=== PATIENT | male | born 1940 | race Caucasian/White ===

== ENCOUNTER → 2016-12-08 | Outpatient (CLI) | payer MEDICARE, OTHER ==
[~2016-12-08] VITALS: Ht 180.3 cm; Wt 81.6 kg
[~2016-12-08] MED LIST: ASPI1TAB24 PO; ATOR40TA PO; CITA20TA4 PO; GLYCOPYRROLATE INJ 0.2 MG/ML 2 ML VIAL As Ordered ONE; LIDOCAINE 2% INJ 100 MG/5 ML SDV (FOR ANES.) As Ordered ONE; MELO15TA4 PO; MULT1TAB10 PO; NS 1,000 ML IV SCH; PANT40TA2 PO; PROPOFOL 500 MG/50 ML VIAL As Ordered ONE; RAMI5CA PO; SPIR25TA2 PO; SYMB16INH INH; TIOT18INH INH; VITA100T20 PO; ePHEDrine SULFATE 25 MG/5 ML(5MG/ML) SYRINGE As Ordered ONE
--- NOTE | 2016-12-08 11:30 | ROOR ---
Patient Name: Levy Fonseca Procedure Date: 12/08/2016 11:12 AM Date of : 1940 Age: 76 Room: [facility] Gender: Male Note Status: Finalized Procedure: Upper GI endoscopy + Biopsies Indications: Dysphagia, Heartburn Providers: Fareed Oneil MD Referring MD: Darrin De Luna NP Requesting Provider: Medicines: Monitored Anesthesia Care Complications: No immediate complications. Procedure: Pre-Anesthesia Assessment: - The heart rate, respiratory rate, oxygen saturations, blood pressure, adequacy of pulmonary ventilation, and response to care were monitored throughout the procedure. The Endoscope was introduced through the mouth, and advanced to the second part of duodenum. The upper GI endoscopy was accomplished without difficulty. The patient tolerated the procedure well. Findings: The Z-line was irregular and was found 35 cm from the incisors. Multiple biopsies were obtained with cold forceps for evaluation to rule out Ahn's Esophagus randomly at the gastroesophageal junction. A large hiatal hernia was present. No other significant abnormalities were identified in a careful examination of the stomach. The exam of the duodenum was otherwise normal. Impression: - Z-line irregular, 35 cm from the incisors. - Large hiatal hernia. - Multiple biopsies were obtained at the gastroesophageal junction. - The examination was otherwise normal. Recommendation: - Patient has a contact number available for emergencies. The signs and symptoms of potential delayed complications were discussed with the patient. Return to normal activities tomorrow. Written discharge instructions were provided to the patient. - Discharge patient to home. - Continue present medications. - Follow an antireflux regimen. - Await pathology results. - Check Portal Online for Path Results.([email or web address]) - Telephone GI clinic for pathology results in 1 week. - Return to referring physician. - The findings and recommendations were discussed with the patient's family. Fareed Oneil MD Fareed Oneil MD 12/08/2016 11:30:24 AM This report has been signed electronically. Number of Addenda: 0 Note Initiated On: 12/08/2016 11:12 AM Estimated Blood Loss: Estimated blood loss: none.
--- NOTE | 2016-12-08 11:51 | ROOR ---
Patient Name: Levy Fonseca Procedure Date: 12/08/2016 11:12 AM Date of : 1940 Age: 76 Room: [facility] Gender: Male Note Status: Finalized Procedure: Colonoscopy to Cecum + Cold Snare Polypectomy Indications: Screening for colorectal malignant neoplasm Providers: Fareed Oneil MD Referring MD: Darrin De Luna NP Requesting Provider: Medicines: Monitored Anesthesia Care Complications: No immediate complications. Procedure: Pre-Anesthesia Assessment: - The heart rate, respiratory rate, oxygen saturations, blood pressure, adequacy of pulmonary ventilation, and response to care were monitored throughout the procedure. The Colonoscope was introduced through the anus and advanced to the cecum, identified by appendiceal orifice and ileocecal valve. The colonoscopy was performed without difficulty. The patient tolerated the procedure well. The quality of the bowel preparation was excellent. Findings: The perianal and digital rectal examinations were normal. Non-bleeding internal hemorrhoids were found during retroflexion. The hemorrhoids were small and Grade I (internal hemorrhoids that do not prolapse). Scattered small-mouthed diverticula were found in the recto-sigmoid colon, sigmoid colon and descending colon. Multiple sessile polyps were found at 10 cm proximal to the anus. The polyps were small in size. These polyps were removed with a cold snare. Resection and retrieval were complete. A small polyp was found at 45 cm proximal to the anus. The polyp was sessile. The polyp was removed with a cold snare. Resection and retrieval were complete. The exam was otherwise without abnormality on direct and retroflexion views. Impression: - Non-bleeding internal hemorrhoids. - Diverticulosis in the recto-sigmoid colon, in the sigmoid colon and in the descending colon. - Multiple small polyps at 10 cm proximal to the anus, removed with a cold snare. Resected and retrieved. - One small polyp at 45 cm proximal to the anus, removed with a cold snare. Resected and retrieved. - The examination was otherwise normal on direct and retroflexion views. - The exam was otherwise normal to the cecum. Recommendation: - Patient has a contact number available for emergencies. The signs and symptoms of potential delayed complications were discussed with the patient. Return to normal activities tomorrow. Written discharge instructions were provided to the patient. - High fiber diet. - Discharge patient to home. - Continue present medications. - Await pathology results. - Telephone GI clinic for pathology results in 1 week. - Check Portal Online for Path Results.([email or web address]) - Repeat colonoscopy for surveillance based on pathology results. - Return to referring physician. - The findings and recommendations were discussed with the patient's family. Fareed Oneil MD Fareed Oneil MD 12/08/2016 11:51:25 AM This report has been signed electronically. Number of Addenda: 0 Note Initiated On: 12/08/2016 11:12 AM Estimated Blood Loss: Estimated blood loss: none.
[2016-12-08 12:10] VITALS: BP 124/77
== END | disposition home or self-care (01) ==
LOC: M OPP 09:44
PROVIDERS: ATTEND Internal Medicine Gastroenterology
DX: Z12.11 Encounter for screening for malignant neoplasm of colon (principal); K64.0 First degree hemorrhoids; K57.30 Diverticulosis of large intestine without perforation or abscess without bleeding; K62.0 Anal polyp; K21.9 Gastro-esophageal reflux disease without esophagitis; K22.8 Other specified diseases of esophagus; K44.9 Diaphragmatic hernia without obstruction or gangrene; K22.70 Barrett's esophagus without dysplasia; I10 Essential (primary) hypertension; M19.90 Unspecified osteoarthritis, unspecified site; F41.9 Anxiety disorder, unspecified; J44.9 Chronic obstructive pulmonary disease, unspecified; Z79.899 Other long term (current) drug therapy; Z79.82 Long term (current) use of aspirin; Z88.1 Allergy status to other antibiotic agents; Z88.2 Allergy status to sulfonamides; Z88.8 Allergy status to other drugs, medicaments and biological substances; Z87.891 Personal history of nicotine dependence

== ENCOUNTER → 2017-07-16 | Outpatient (REF) | payer MEDICARE, OTHER ==
[~2017-07-16] MED LIST changes: +ASPI-161 PO; -ASPI1TAB24 PO; -ATOR40TA PO; +ATOR40TA75 PO; -GLYCOPYRROLATE INJ 0.2 MG/ML 2 ML VIAL As Ordered ONE; -LIDOCAINE 2% INJ 100 MG/5 ML SDV (FOR ANES.) As Ordered ONE; -NS 1,000 ML IV SCH; -PROPOFOL 500 MG/50 ML VIAL As Ordered ONE; -ePHEDrine SULFATE 25 MG/5 ML(5MG/ML) SYRINGE As Ordered ONE
== END ==
LOC: M LAB REF 13:28
PROVIDERS: ATTEND Physician Assistant
DX: J44.1 Chronic obstructive pulmonary disease with (acute) exacerbation (principal)

== ENCOUNTER → 2017-09-10 | Outpatient (CLI) | payer MEDICARE, OTHER ==
[~2017-09-10] MED LIST changes: -ASPI-161 PO; -ATOR40TA75 PO; -CITA20TA4 PO; +ISOVUE-370 76% 100ML VIAL (Q9967) As Ordered; -MELO15TA4 PO; -MULT1TAB10 PO; -PANT40TA2 PO; -RAMI5CA PO; -SPIR25TA2 PO; -SYMB16INH INH; -TIOT18INH INH; -VITA100T20 PO
== END ==
LOC: M RAD 15:18
DX: R06.00 Dyspnea, unspecified (principal); J98.11 Atelectasis; K44.9 Diaphragmatic hernia without obstruction or gangrene
CPT/HCPCS: Q9967

== ENCOUNTER → 2017-10-22 | Outpatient (REF) | payer MEDICARE, OTHER ==
[2017-10-22 17:20] LABS: INFLUENZA A AMPLIFICATION NEGATIVE (NEGATIVE); INFLUENZA B AMPLIFICATION NEGATIVE (NEGATIVE)
== END ==
LOC: M LAB REF 16:22
DX: J11.1 Influenza due to unidentified influenza virus with other respiratory manifestations (principal)
CPT/HCPCS: 87502

== ENCOUNTER → 2017-12-10 | Outpatient (CLI) | payer MEDICARE, OTHER ==
[2017-12-10 16:44] LABS: BASO % 0.4 % (0.0-1.0); EOS # 0.1 10^3/uL (0.0-0.50); HEMOGLOBIN 11.2 g/dl (13.5-17.5); IMMATURE GRANULOCYTE % 0.3 % (0-3.0); LYMPH # 0.9 10^3/uL (1.5-4.5); LYMPH % 12.9 % (24.0-44.0); MEAN CORPUSCULAR HEMOGLOBIN 28.1 pg (27.0-33.0); MEAN CORPUSCULAR VOLUME 87.7 fl (80.0-96.0); MONO # 0.6 10^3/uL (0.0-0.8); NEUTROPHILS # 5.3 10^3/uL (1.8-7.7); NEUTROPHILS % 76.4 % (36.0-66.0); PLATELET COUNT, AUTOMATED 238 10^3/uL (150-450); RED BLOOD COUNT 3.99 10^6/uL (4.30-6.10); RED CELL DISTRIBUTION WIDTH 14.9 % (11.5-14.5)
[2017-12-10 17:19] LABS: ALBUMIN 3.8 GM/DL (3.2-5.2); ALBUMIN/GLOBULIN RATIO 1.36 (1.00-1.93); ALKALINE PHOSPHATASE 78 U/L (45-117); ALT/SGPT 40 U/L (12-78); ANION GAP 6 MEQ/L (8-16); AST/SGOT 28 U/L (7-37); BILIRUBIN,TOTAL 0.5 MG/DL (0.2-1.0); BLOOD UREA NITROGEN 19 MG/DL (7-18); CALCIUM LEVEL 8.8 MG/DL (8.8-10.2); CARBON DIOXIDE LEVEL 29 MEQ/L (21-32); CHLORIDE LEVEL 110 MEQ/L (98-107); CREATININE FOR GFR 0.92 MG/DL (0.70-1.30); GLOMERULAR FILTRATION RATE > 60.0 (>42); GLUCOSE, FASTING 96 MG/DL (70-100); POTASSIUM SERUM 4.7 MEQ/L (3.5-5.1); SODIUM LEVEL 145 MEQ/L (136-145); TOTAL PROTEIN 6.6 GM/DL (6.4-8.2)
[2017-12-10 17:23] LABS: APPEARANCE, URINE CLEAR (CLEAR); BACTERIA, URINE AUTO NEGATIVE (NEGATIVE); BILIRUBIN, URINE AUTO NEGATIVE (NEGATIVE); BLOOD, URINE BLOOD NEGATIVE (NEGATIVE); COLOR, URINE YELLOW (YELLOW); GLUCOSE, URINE (UA) AUTO NEGATIVE (NEGATIVE); KETONE, URINE AUTO NEGATIVE (NEGATIVE); LEUKOCYTE ESTERASE, URINE AUTO NEGATIVE (NEGATIVE); MUCUS, URINE SMALL (NEGATIVE); NITRITE, URINE AUTO NEGATIVE (NEGATIVE); PROTEIN, URINE AUTO NEGATIVE (NEGATIVE); RBC, URINE AUTO 1 /HPF (0-3); SQUAMOUS EPITHELIAL CELL UR AU 0 /HPF (0-6); UROBILINOGEN, URINE AUTO 0.2 mg/dL (0.0-2.0); WBC, URINE AUTO 0 /HPF (0-3)
[2017-12-10 17:30] LABS: INR 0.96; PROTHROMBIN TIME 12.9 SECONDS (12.4-14.5)
[2017-12-10 17:31] LABS: PARTIAL THROMBOPLASTIN TIME 30.7 SECONDS (26.8-37.9)
[2017-12-10 19:17] LABS: ESTIMATED AVERAGE GLUCOSE 128 MG/DL (60-110); HEMOGLOBIN A1c 6.1 %
== END ==
LOC: M WUC 11:08
DX: M47.12 Other spondylosis with myelopathy, cervical region (principal); M47.22 Other spondylosis with radiculopathy, cervical region; Z79.899 Other long term (current) drug therapy
CPT/HCPCS: 80053

== ENCOUNTER → 2018-07-21 | Outpatient (CLI) | payer MEDICARE, OTHER | LOC: M RAD 15:04 | DX: K40.90 Unilateral inguinal hernia, without obstruction or gangrene, not specified as recurrent (principal); R93.811 Abnormal radiologic findings on diagnostic imaging of right testicle; N50.3 Cyst of epididymis; R10.30 Lower abdominal pain, unspecified | CPT/HCPCS: 76870 ==

== ENCOUNTER 2019-04-11 11:04 | Day surgery (SDC) | payer MEDICARE, OTHER ==
[~2019-04-11] VITALS: Ht 180.3 cm; Wt 81.6 kg
[~2019-04-11 11:04] MED LIST changes: +ASPI-161 PO; +ATOR40TA75 PO; +CITA20TA6 PO; -ISOVUE-370 76% 100ML VIAL (Q9967) As Ordered; +LIDOCAINE 2% INJ 100 MG/5 ML SDV (FOR ANES.) As Ordered ONE; +MELO15TA28 PO; +MULT1TAB10 PO; +MULTCAP PO; +NS 1,000 ML IV ONE; +PANT40TA3 PO; +PROV108A INH; +RAMI1CAP24 PO; +ROPI0.5T PO; +SPIR-10 PO; +SYMB16INH INH; +TIOT18INH INH; +VITA100T51 PO; +propofoL 200 MG/20 ML VIAL As Ordered ONE
--- NOTE | 2019-04-11 13:16 | ROOR ---
Patient Name: Levy Fonseca Procedure Date: 04/11/2019 12:54 PM Date of : 1940 Age: 79 Room: [facility] Gender: Male Note Status: Finalized Procedure: Upper Endoscopy + Biopsies Indications: Heartburn, Exclusion of Ahn's esophagus Providers: Fareed Oneil MD Referring MD: Diaz Mendez Md Requesting Provider: Medicines: Monitored Anesthesia Care Complications: No immediate complications. Procedure: Pre-Anesthesia Assessment: - The heart rate, respiratory rate, oxygen saturations, blood pressure, adequacy of pulmonary ventilation, and response to care were monitored throughout the procedure. The Endoscope was introduced through the mouth, and advanced to the second part of duodenum. The upper GI endoscopy was accomplished without difficulty. The patient tolerated the procedure well. Findings: The Z-line was irregular and was found 35 cm from the incisors. Multiple biopsies were obtained with cold forceps for evaluation to rule out Ahn's Esophagus randomly at the gastroesophageal junction. A large hiatal hernia was present. No other significant abnormalities were identified in a careful examination of the stomach. The exam of the duodenum was otherwise normal. Impression: - Z-line irregular, 35 cm from the incisors. - Large hiatal hernia. - Multiple biopsies were obtained at the gastroesophageal junction. - The examination was otherwise normal. Recommendation: - Patient has a contact number available for emergencies. The signs and symptoms of potential delayed complications were discussed with the patient. Return to normal activities tomorrow. Written discharge instructions were provided to the patient. - High fiber diet. - Discharge patient to home. - Follow an antireflux regimen. - Continue present medications. - Await pathology results. - Telephone GI clinic for pathology results in 1 week. - Return to referring physician. - The findings and recommendations were discussed with the patient's family. Fareed Oneil MD Fareed Oneil MD 04/11/2019 1:16:29 PM Electronically signed by Fareed Oneil MD Number of Addenda: 0 Note Initiated On: 04/11/2019 12:54 PM Estimated Blood Loss: Estimated blood loss: none.
[2019-04-11 13:47] VITALS: BP 162/70
== END 2019-04-11 13:47 | disposition home or self-care (01) ==
LOC: M OPP 11:04
PROVIDERS: ATTEND Internal Medicine Gastroenterology
DX: R12 Heartburn (principal); D13.0 Benign neoplasm of esophagus; K22.8 Other specified diseases of esophagus; K44.9 Diaphragmatic hernia without obstruction or gangrene; I10 Essential (primary) hypertension; E78.00 Pure hypercholesterolemia, unspecified; F41.9 Anxiety disorder, unspecified; J44.9 Chronic obstructive pulmonary disease, unspecified; Z88.2 Allergy status to sulfonamides; Z88.8 Allergy status to other drugs, medicaments and biological substances; Z79.82 Long term (current) use of aspirin; Z87.891 Personal history of nicotine dependence

== ENCOUNTER → 2019-06-10 | Outpatient (CLI) | payer MEDICARE, OTHER ==
[~2019-06-10] MED LIST changes: -LIDOCAINE 2% INJ 100 MG/5 ML SDV (FOR ANES.) As Ordered ONE; -NS 1,000 ML IV ONE; -propofoL 200 MG/20 ML VIAL As Ordered ONE
[2019-06-10 13:09] LABS: HEMATOCRIT 38.9 % (42.0-52.0); HEMOGLOBIN 12.4 g/dl (13.5-17.5); MEAN CORPUSCULAR HEMOGLOBIN 29.8 pg (27.0-33.0); MEAN CORPUSCULAR HGB CONC 31.9 g/dl (32.0-36.5); MEAN CORPUSCULAR VOLUME 93.5 fl (80.0-96.0); PLATELET COUNT, AUTOMATED 240 10^3/uL (150-450); RED BLOOD COUNT 4.16 10^6/uL (4.30-6.10); WHITE BLOOD COUNT 4.7 10^3/uL (4.0-10.0)
[2019-06-10 13:21] LABS: BLOOD UREA NITROGEN 19 MG/DL (7-18); CARBON DIOXIDE LEVEL 29 MEQ/L (21-32); CHLORIDE LEVEL 106 MEQ/L (98-107); CHOLESTEROL LEVEL 158 MG/DL (<200); CHOLESTEROL RISK RATIO 2.468 (<5); CREATININE FOR GFR 0.88 MG/DL (0.70-1.30); GLOMERULAR FILTRATION RATE > 60.0 (>42); GLUCOSE, FASTING 99 MG/DL (70-100); HDL CHOLESTEROL 64 MG/DL (>40); LDL CHOLESTEROL 66 MG/DL (<100); NON-HDL-C 94 MG/DL; POTASSIUM SERUM 5.1 MEQ/L (3.5-5.1); SODIUM LEVEL 138 MEQ/L (136-145); TRIGLYCERIDES LEVEL 139 MG/DL (<150)
== END ==
LOC: M WUC 09:56
PROVIDERS: ATTEND Physician Assistant
DX: I25.10 Atherosclerotic heart disease of native coronary artery without angina pectoris (principal)

== ENCOUNTER → 2019-09-27 | Outpatient (CLI) | payer MEDICARE, OTHER ==
[~2019-09-27] MED LIST changes: -ROPI0.5T PO; +ROPI0.5T3 PO
--- NOTE | 2019-09-27 11:01 | REP ---
Clinical: Lung screening. History smoking. Comparison: Chest CT dated 09/10/2017 and 11/13/2015 Technique: Axial low-dose noncontrast images from the thoracic inlet to the upper abdomen using lung screening technique. Findings: The lung wheeler are well-aerated. Small stable scarring inseparable from the right major fissure (image 60) unchanged compared to 2016. Large hiatal hernia extends to the left lower lung zone with adjacent chronic scarring. No consolidation, significant nodule or mass lesion is appreciated. No pleural effusion/reaction or pneumothorax. Tracheobronchial tree is patent. Mediastinum demonstrates mild atherosclerotic changes of the coronary arteries without cardiomegaly. Impression: Lung-RADS category II. No nodule or suspicious abnormality. Management recommendations include annual surveillance. Electronically Signed by Gary Eastman MD 09/27/2019 10:52 A
== END ==
LOC: M RAD 09:23
PROVIDERS: ATTEND Physician Assistant Medical
DX: Z12.2 Encounter for screening for malignant neoplasm of respiratory organs (principal); Z87.891 Personal history of nicotine dependence

== ENCOUNTER → 2020-02-07 | Outpatient (CLI) | payer MEDICARE, OTHER ==
--- NOTE | 2020-02-07 11:31 | REP ---
Chest x-ray: Two views. History: COPD. Comparison chest x-ray: June 08, 2015. Findings: There is a large hiatal hernia behind the heart. The patient is status post cervical discectomy and fusion plating. There are mild degenerative disc changes in the thoracic spine. The thoracic aorta is tortuous. Heart is not enlarged. The lungs are well inflated and free of infiltrate. Pleural angles are sharp. Pulmonary vasculature is not increased. Impression: Large hiatal hernia. Otherwise no active cardiopulmonary disease. Electronically Signed by Allen Higgins MD 02/07/2020 11:23 A
== END ==
LOC: M LAB 09:40
PROVIDERS: ATTEND Internal Medicine Pulmonary Disease
DX: K44.9 Diaphragmatic hernia without obstruction or gangrene (principal); J44.9 Chronic obstructive pulmonary disease, unspecified

== ENCOUNTER → 2020-02-08 | Outpatient (CLI) | payer MEDICARE, OTHER ==
[2020-02-08 13:43] LABS: BLOOD UREA NITROGEN 28 MG/DL (7-18); CALCIUM LEVEL 8.7 MG/DL (8.8-10.2); CARBON DIOXIDE LEVEL 26 MEQ/L (21-32); CHLORIDE LEVEL 109 MEQ/L (98-107); CHOLESTEROL LEVEL 157 MG/DL (<200); CHOLESTEROL RISK RATIO 2.573 (<5); GLOMERULAR FILTRATION RATE > 60.0 (>42); GLUCOSE, FASTING 98 MG/DL (70-100); HDL CHOLESTEROL 61 MG/DL (>40); LDL CHOLESTEROL 75 MG/DL (<100); NON-HDL-C 96 MG/DL; POTASSIUM SERUM 4.3 MEQ/L (3.5-5.1); SODIUM LEVEL 140 MEQ/L (136-145); TRIGLYCERIDES LEVEL 106 MG/DL (<150)
== END ==
LOC: M WUC 08:53
PROVIDERS: ATTEND Physician Assistant
DX: I25.10 Atherosclerotic heart disease of native coronary artery without angina pectoris (principal)

== ENCOUNTER → 2020-06-14 | Outpatient (CLI) | payer MEDICARE, OTHER ==
[~2020-06-14] MED LIST changes: +PANT40TA29 PO; -PANT40TA3 PO
--- NOTE | 2020-06-14 12:18 | REP ---
INDICATION: WHEEZING. COMPARISON: 02/24/2020 and 09/27/2019 and 09/10/2017. TECHNIQUE: CT chest performed without the use of intravenous contrast. Sagittal and coronal reconstruction images are performed. FINDINGS: Lungs: There is scattered linear fibrotic scarring which appears stable. There is a 4 mm nodular density anteriorly in the right lower lobe which is stable and benign. It is unchanged since the 2018 exam. It is seen on image 57. There is stable somewhat nodular scarring in the right middle lobe. There is stable fibro atelectatic change in the left lower lobe. There is no acute infiltrate or pulmonary edema. Mediastinum: No gross adenopathy. Lindsey: No gross adenopathy. Axilla: No gross adenopathy. Pleura: No effusion. Heart: Not enlarged. Thoracic aorta: No aneurysm. There are atherosclerotic calcifications. Upper abdominal structures: There is a large hiatal hernia. There is a 4 mm calcification in the collecting system of the upper pole the left kidney. Visualized osseous structures: There are degenerative changes of the spine with stable compression deformity of L1. IMPRESSION: Stable chronic findings as discussed in detail above. No acute changes compared to prior studies. <Electronically signed by Sunil Landers > 06/14/20 1085
== END ==
LOC: M RAD 08:18
PROVIDERS: ATTEND Internal Medicine Pulmonary Disease
DX: R06.2 Wheezing (principal)

== ENCOUNTER → 2020-06-21 | Outpatient (CLI) | payer MEDICARE, OTHER | LOC: M LABSMTC 13:11 | PROVIDERS: ATTEND Anesthesiology | DX: Z01.812 Encounter for preprocedural laboratory examination (principal); Z20.828 Contact with and (suspected) exposure to other viral communicable diseases | CPT/HCPCS: C9803; U0003 ==

== ENCOUNTER 2020-06-26 09:06 | Day surgery (SDC) | payer MEDICARE, OTHER ==
[~2020-06-26] VITALS: Ht 180.3 cm; Wt 79.4 kg
[~2020-06-26 09:06] MED LIST changes: +LIDOCAINE 1% MDV 20ML VIAL SQ PRN; +LR 1,000 ML IV ONE; +ceFAZolin SOD 2 GM in IV 1 EA IV ONE
[2020-06-26] MEDS ORDERED: THROMBIN SOLN 20,000 UNITS KIT As Ordered ONE (10:17)
[2020-06-26] MEDS ORDERED: LIDOCAINE 4% TOPICAL SOLN 50 ML BTL As Ordered ONE (10:18)
[2020-06-26] MEDS ORDERED: EPINEPHrine 1MG/10ML SYRINGE 1.5IN As Ordered ONE (10:18)
[2020-06-26] MEDS ORDERED: CETACAINE SPRAY 5GM As Ordered ONE (10:18)
[2020-06-26] MEDS ORDERED: LIDOCAINE 1% SDV 30ML VIAL As Ordered ONE (10:18)
[2020-06-26] MEDS ORDERED: LIDOCAINE VISCOUS 2% SOLN 15ML UDC As Ordered ONE (10:18)
[2020-06-26] MEDS ORDERED: SUGAMMADEX SODIUM 500 MG/5 ML VIAL (BRIDION) As Ordered ONE (11:00)
[2020-06-26] MEDS ORDERED: dexameTHASONE 4 MG/ML 1ML VIAL (J1100 PER 1MG) As Ordered ONE (11:00)
[2020-06-26] MEDS ORDERED: ONDANSETRON 4MG/2ML VIAL As Ordered ONE (11:00)
[2020-06-26] MEDS ORDERED: ROCURONIUM BROMIDE 50 MG/5 ML VIAL As Ordered ONE (11:00)
[2020-06-26] MEDS ORDERED: LIDOCAINE 2% 100MG/5ML SDV (FOR ANES.) As Ordered ONE (11:00)
[2020-06-26] MEDS ORDERED: propofoL 200 MG/20 ML VIAL As Ordered ONE (11:00)
[2020-06-26] MEDS ORDERED: fentaNYL 100 MCG/2 ML INJECTION (J3010) As Ordered ONE (11:00)
[2020-06-26] MEDS ORDERED: fentaNYL 100 MCG/2 ML INJECTION (J3010) IV PRN (11:30)
[2020-06-26] MEDS ORDERED: PERCOCET 5MG/325MG TAB PO PRN (11:30)
[2020-06-26] MEDS ORDERED: METOCLOPRAMIDE INJ 10MG/2ML VIAL (J2765 PER 1) IV PRN (11:30)
[2020-06-26] MEDS ORDERED: ONDANSETRON 4MG/2ML VIAL IV PRN (11:30)
[2020-06-26] MEDS ORDERED: LR 1,000 ML IV SCH (11:30)
--- NOTE | 2020-06-26 11:47 | REP ---
INDICATION: POST OP IN PACU NOW. COMPARISON: Comparison chest CT study June 14, 2020. Comparison chest radiograph February 07, 2020.. TECHNIQUE: Semi-erect AP portable chest x-ray. FINDINGS: There is cephalization of pulmonary vasculature. A large hiatal hernia is again noted behind the heart. Heart is mildly prominent in size. Pleural angles are sharp. There is no evidence of pneumothorax or hydrothorax. There is soft tissue fullness in the left hilar region. IMPRESSION: No evidence of pneumothorax or hydrothorax. Large hiatal hernia. Question left perihilar fullness. <Electronically signed by Noel Higgins > 06/26/20 [id number]
[2020-06-26 12:10] VITALS: BP 140/80
--- NOTE | 2020-06-26 18:06 | ECGEPIP ---
[facility] Test Date: 2020-06-26 Pat Name: KIANA MCKEON Department: Room: - Gender: Male Security Manager: ELSA : 1940 Requested By: Diaz Rose Order Number: [id number] Reading MD: Freddy Frederick Measurements Intervals [place] Rate: 58 P: 11 [place]: 163 QRS: 0 QRSD: 103 T: 23 QT: 440 QTc: 435 Interpretive Statements Sinus bradycardia Low QRS voltage in the limb leads Nonspecific T-wave abnormalities No significant change since prior tracing of 06/08/2015 Electronically Signed on 06-26-2020 18:06:15 EST by Freddy Frederick
--- NOTE | 2020-06-27 07:07 | RO ---
DATE OF OPERATION: 06/26/2020 PREOPERATIVE DIAGNOSIS: Persistent right lower lobe wheeze. POST-PROCEDURE DIAGNOSIS: Persistent right lower lobe wheeze. FINDINGS: Smokers airway with a fishmouth, right middle lobe medial segment. PROCEDURE: Bronchoscopy with inspection, no biopsies performed. SURGEON: Jonathan Roberson DO ANESTHESIA: General. Please refer to their records for review. ESTIMATED BLOOD LOSS: None. DRAINS: None. DRY CURE WORKER: None. SPECIMENS: None obtained. FLUID REPLACED: None. COMPLICATIONS: None. DESCRIPTION OF PROCEDURE: The patient was greeted in the preoperative area. Consent was reviewed with the patient. The reason we were doing this under general anesthesia is in case there was a foreign body as there had been a persistent wheeze in this same location on exam over a number of months. No other wheeze elsewhere in the lung exam. Possibly some minimal changes to the right upper lobe airway. After consent was reviewed with the patient, he was brought back to [facility]. Timeout was performed with two patient identifiers, identifying correct site and correct procedure. He was intubated. The case was handed over to me. A 1T180 bronchoscope was then inserted into the endotracheal tube with cetacaine spray for lubrication. Claire was sharp. Trachea was midline. Right mainstem bronchus was normal. RB-1 through 10 was normal with significant pitting in the right upper lobe and some fishmouth appearance of the medial segment of the right middle lobe. Otherwise, there were no endobronchial lesions. There were minimal amounts of mucus that were suctioned. The left mainstem bronchus was then entered. LB-1 through 10 had similar findings of pitting and banding, more pitting than banding. No endobronchial lesion was seen. In the superior basal segment of the left lower lobe, there was significant mucus. This was cleared. There were no endobronchial lesions. After all airways were examined, I reexamined the right again to ensure no foreign body or polyp/tumor. There was no evidence of endobronchial lesions; therefore, the bronchoscope was removed. The case was handed over back to anesthesia. The patient was extubated. Post-procedure chest x-ray is pending. At this point in time, no observed complications. MTDD
== END 2020-06-26 12:49 | disposition home or self-care (01) ==
LOC: M SDC 09:06
PROVIDERS: ATTEND Internal Medicine Pulmonary Disease
DX: R91.8 Other nonspecific abnormal finding of lung field (principal); J44.9 Chronic obstructive pulmonary disease, unspecified; R06.2 Wheezing; Z87.891 Personal history of nicotine dependence; K21.9 Gastro-esophageal reflux disease without esophagitis; E78.49 Other hyperlipidemia; Z88.2 Allergy status to sulfonamides; Z88.8 Allergy status to other drugs, medicaments and biological substances
CPT/HCPCS: 31622; 71045; 93005; J1100; J2405; J3010

== ENCOUNTER → 2020-07-31 | Outpatient (CLI) | payer MEDICARE, OTHER ==
[~2020-07-31] MED LIST changes: -LIDOCAINE 1% MDV 20ML VIAL SQ PRN; -LR 1,000 ML IV ONE; -ceFAZolin SOD 2 GM in IV 1 EA IV ONE
[2020-07-31 12:05] LABS: PLATELET COUNT, AUTOMATED 229 10^3/uL (150-450)
[2020-07-31 12:22] LABS: INR 0.91; PROTHROMBIN TIME 12.4 SECONDS (12.5-14.3)
[2020-07-31 12:23] LABS: PARTIAL THROMBOPLASTIN TIME 29.6 SECONDS (24.2-38.5)
== END ==
LOC: M WUC 09:59
PROVIDERS: ATTEND Physician Assistant Surgical
DX: Z01.812 Encounter for preprocedural laboratory examination (principal); Z79.899 Other long term (current) drug therapy

== ENCOUNTER → 2020-08-01 | Outpatient (CLI) | payer MEDICARE, OTHER | LOC: M LABSMTC 12:10 | PROVIDERS: ATTEND Physical Medicine & Rehabilitation | DX: Z01.812 Encounter for preprocedural laboratory examination (principal); Z20.828 Contact with and (suspected) exposure to other viral communicable diseases ==

== ENCOUNTER → 2020-10-22 | Outpatient (CLI) | payer MEDICARE, OTHER ==
--- NOTE | 2020-10-22 10:44 | REP ---
INDICATION: NICOTINE DEPEND COMPARISON: 06/14/2020 TECHNIQUE: Axial noncontrast images from the thoracic inlet to the upper abdomen using low-dose lung screening technique (LDCT). FINDINGS: A large paraesophageal gastric hiatal hernia along the left basilar aspect of the mediastinum causing chronic fibroatelectatic changes to the adjacent left lower lobe as well as small scattered perifissural areas of chronic scarring and 3 mm noncalcified right lower lobe nodule remain stable as compared with multiple prior examinations dating through 09/27/2019 and 09/10/2017. No new area of consolidation, suspicious nodule or mass lesion appreciated. Tracheobronchial tree is patent. The mediastinum demonstrates stable atherosclerotic changes to the thoracic aorta and coronary arteries. Surrounding musculoskeletal structures intact and without acute osseous abnormality. IMPRESSION: Lung-RADS category 2 demonstrating stable changes. No new acute suspicious nodule or mass lesion. Management recommendations include annual low-dose CT evaluation. <Electronically signed by Gary Eastman > 10/22/20 1048
== END ==
LOC: M RAD 10:12
PROVIDERS: ATTEND Physician Assistant Medical
DX: Z87.891 Personal history of nicotine dependence (principal)

== ENCOUNTER → 2020-11-15 | Outpatient (REF) | payer MEDICARE, OTHER ==
[2020-11-15 14:04] LABS: BLOOD UREA NITROGEN 29 MG/DL (7-18); CREATININE FOR GFR 0.83 MG/DL (0.70-1.30); GLOMERULAR FILTRATION RATE > 60.0 (>42)
== END ==
LOC: M LAB REF 13:16
PROVIDERS: ATTEND Internal Medicine Pulmonary Disease
DX: R06.00 Dyspnea, unspecified (principal)

== ENCOUNTER → 2020-11-15 | Outpatient (CLI) | payer MEDICARE, OTHER ==
[~2020-11-15] MED LIST changes: +ISOVUE-370 76% 100ML VIAL As Ordered ONE
--- NOTE | 2020-11-15 16:04 | REP ---
INDICATION: DYSPNEA, UNSPECIFIED. COMPARISON: Chest CT with IV contrast dated 09/10/[address] without IV contrast dated 10/22/2020. TECHNIQUE: Chest CT with IV contrast, CT angiography. FINDINGS: There are no emboli in the pulmonary trunk or central pulmonary arteries. There are tiny filling defects in the left lower lobe pulmonary artery compatible with nonocclusive emboli. They are eccentric suggesting they may be chronic. Upon review similar filling defects are identified on the 09/10/2017 study, also small, eccentric and nonocclusive, possibly chronic previously as well., not significantly changed on the current study. No emboli are identified in the lobe or segment pulmonary artery branches otherwise. There is a stable 6 mm lung nodule in the right middle lobe on image 54, unchanged from both prior studies, likely a granuloma. There is a stable 6 mm lung nodule in the right middle lobe on image 67, unchanged from both prior studies, likely a granuloma. There is a stable 3 mm nodule in the superior segment of the right lower lobe on image 45, unchanged from both prior studies. There is a large fixed hiatal hernia measuring up to 13 cm in diameter. There is chronic atelectasis, scarring and parenchymal bulla in the left lower lobe adjacent to the hiatal hernia, unchanged from the prior studies. There are no acute infiltrates or pleural effusions. The thoracic aorta is unremarkable. Cardiac size is normal. No pericardial effusion. The visualized upper abdominal contents are unremarkable except for the large hiatal hernia and a nonobstructive left renal calculus. The calculus is unchanged from 09/10/2017. 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 Upon review I believe these are also present on the 09/10/2017 CT, likely chronic on the prior study as well. They are not significantly changed on the current study. There are no new pulmonary emboli. There are stable lung nodules as described. There is stable parenchymal scarring and there are stable bulla in the left lower lobe adjacent to the large fixed hiatal hernia, unchanged. There is a non obstructing left renal calculus, unchanged. There are no acute infiltrates or pleural effusions. There are no new lung masses or nodules. <Electronically signed by Sunil Chan > 11/15/20 1600
== END ==
LOC: M RAD 15:02
PROVIDERS: ATTEND Internal Medicine Pulmonary Disease
DX: R91.8 Other nonspecific abnormal finding of lung field (principal); N20.0 Calculus of kidney; R06.00 Dyspnea, unspecified
CPT/HCPCS: 71275; 82565; 84520; Q9967

== ENCOUNTER → 2021-01-01 | Outpatient (REF) | payer MEDICARE, OTHER ==
[~2021-01-01] MED LIST changes: -ISOVUE-370 76% 100ML VIAL As Ordered ONE
[2021-01-01 18:20] LABS: HEMATOCRIT 35.8 % (42.0-52.0); HEMOGLOBIN 11.4 g/dl (13.5-17.5); MEAN CORPUSCULAR HEMOGLOBIN 29.6 pg (27.0-33.0); MEAN CORPUSCULAR HGB CONC 31.8 g/dl (32.0-36.5); PLATELET COUNT, AUTOMATED 284 10^3/uL (150-450); RED BLOOD COUNT 3.85 10^6/uL (4.30-6.10); WHITE BLOOD COUNT 4.9 10^3/uL (4.0-10.0)
[2021-01-01 18:47] LABS: BLOOD UREA NITROGEN 19 MG/DL (7-18); CREATININE FOR GFR 0.92 MG/DL (0.70-1.30); GLOMERULAR FILTRATION RATE > 60.0 (>42)
== END ==
LOC: M LAB REF 17:11
PROVIDERS: ATTEND Internal Medicine Pulmonary Disease
DX: I26.99 Other pulmonary embolism without acute cor pulmonale (principal)

== ENCOUNTER → 2021-01-30 | Outpatient (CLI) | payer MEDICARE, OTHER | LOC: M WUC 10:20 | PROVIDERS: ATTEND Internal Medicine Pulmonary Disease | DX: I27.82 Chronic pulmonary embolism (principal); D64.9 Anemia, unspecified ==

== ENCOUNTER → 2021-02-28 | Outpatient (REF) | payer MEDICARE, OTHER | LOC: M WUC 11:30 | PROVIDERS: ATTEND Internal Medicine Pulmonary Disease | DX: I27.82 Chronic pulmonary embolism (principal); J44.9 Chronic obstructive pulmonary disease, unspecified; R06.00 Dyspnea, unspecified ==

== ENCOUNTER → 2021-03-15 | Outpatient (CLI) | payer MEDICARE, OTHER ==
--- NOTE | 2021-03-15 12:06 | REP ---
INDICATION: EPIGASTRIC PAIN R/O HH. COMPARISON: None. TECHNIQUE: Supine and erect views of the abdomen. Two views. FINDINGS: There is a large hiatal hernia behind the heart. A levoconvex moderate scoliotic curve is seen in the lumbar spine. Vascular calcifications noted in a normal caliber aorta. The bowel gas pattern is normal apart from the hiatal hernia. Flank stripes are intact. Psoas margins are intact. Patient appears to be status post ventral hernia repair in the suprapubic region. There is no evidence of free air or significant air-fluid level. IMPRESSION: Normal bowel gas pattern. Large hiatal hernia. Scoliosis. <Electronically signed by Noel Higgins > 03/15/21 1207
== END ==
LOC: M RAD 11:30
PROVIDERS: ATTEND Physician Assistant Medical
DX: K44.9 Diaphragmatic hernia without obstruction or gangrene (principal); R10.13 Epigastric pain; M41.86 Other forms of scoliosis, lumbar region

== ENCOUNTER 2021-03-24 09:12 | Emergency (ER) | payer MEDICARE, OTHER ==
[~2021-03-24] VITALS: Ht 180.3 cm; Wt 82.2 kg
[2021-03-24] MEDS ORDERED: XARE20TA (09:18)
[2021-03-24] MEDS ORDERED: ROSU20TA5 (09:18)
[2021-03-24] MEDS ORDERED: ESOM20CA25 (09:18)
[2021-03-24] MEDS ORDERED: LIDOCAINE 2% W/EPINEPHRINE 20ML VIAL **PRES FREE INJ ONE (09:30)
[2021-03-24] MEDS ORDERED: BOOSTRIX/ADACEL VACCINE (DIPHTH/PERTUSS/ACELL/TETANUS) 0.5ML SYR IM ONE (09:30)
--- NOTE | 2021-03-24 09:58 | REPVR ---
PROCEDURE INFORMATION: Exam: CT Head Without Contrast Exam date and time: 03/24/2021 9:53 AM Age: 81 years old Clinical indication: Injury or trauma; Fall; Blunt trauma (contusions or hematomas); Additional info: Fell out of bed, on xarelto TECHNIQUE: Imaging protocol: Computed tomography of the head without contrast. Radiation optimization: All CT scans at this facility use at least one of these dose optimization techniques: automated exposure control; mA and/or kV adjustment per patient size (includes targeted exams where dose is matched to clinical indication); or iterative reconstruction. COMPARISON: No relevant prior studies available. FINDINGS: Brain: There is no acute intracranial hemorrhage. There is mild lucency in the cerebral white matter, likely microvascular disease although non-specific. Landers white differentiation is intact. There are no extra-axial fluid collections. No evidence of mass. There is no mass effect or midline shift. Cerebral ventricles: The ventricles and sulci are enlarged, consistent with age related volume loss / atrophy. No hydrocephalus. Paranasal sinuses: Visualized sinuses are unremarkable. No fluid levels. Mastoid air cells: No significant mastoid effusion. Vasculature: There is vascular calcification. Bones/joints: No acute fracture. Soft tissues: Unremarkable as visualized. IMPRESSION: 1. No evidence of acute intracranial abnormality. No evidence of acute infarction, hemorrhage, or mass. 2. Atrophy and microvascular disease. Electronically signed by: Annie Chamberlain On 03/24/2021 09:58:24 AM
--- NOTE | 2021-03-24 10:02 | REPVR ---
PROCEDURE INFORMATION: Exam: CT Cervical Spine Without Contrast Exam date and time: 03/24/2021 9:53 AM Age: 81 years old Clinical indication: Injury or trauma; Fall; Blunt trauma; Prior surgery; Surgery date: 6+ months; Surgery type: Fusion; Additional info: Fell out of bed, on xarelto TECHNIQUE: Imaging protocol: Computed tomography images of the cervical spine without contrast. Radiation optimization: All CT scans at this facility use at least one of these dose optimization techniques: automated exposure control; mA and/or kV adjustment per patient size (includes targeted exams where dose is matched to clinical indication); or iterative reconstruction. COMPARISON: MRI-Spine,Cervical without con 11/24/2017 7:35 PM FINDINGS: Bones/joints: No acute fracture. Straightening of cervical lordosis may be positional, related to prior cervical fusion, and or muscular spasm. There is anterior plate and screw and interbody fusion of C4 through C6. Hardware appears intact. There is minimal anterolisthesis of C7 on T1 and T1 on T2. Discs/Spinal canal/Neural foramina: There is no significant or moderate or severe spinal stenosis. There is cervical neural foraminal narrowing. Lungs: Lung apices are unremarkable for acute finding. Vasculature: There are surgical clips in right neck along carotid space. Soft tissues: Unremarkable. IMPRESSION: No evidence of acute fracture. Other findings as described. Electronically signed by: Annie Chamberlain On 03/24/2021 10:02:11 AM
[2021-03-24 10:33] VITALS: BP 145/70
== END 2021-03-24 10:34 | disposition home or self-care (01) ==
LOC: M ED 09:12
DX: S01.81XA Laceration without foreign body of other part of head, initial encounter (principal); R51.9 Headache, unspecified; W19.XXXA Unspecified fall, initial encounter; Y92.099 Unspecified place in other non-institutional residence as the place of occurrence of the external cause; Y93.89 Activity, other specified; Y99.9 Unspecified external cause status; J44.9 Chronic obstructive pulmonary disease, unspecified; F41.9 Anxiety disorder, unspecified; I10 Essential (primary) hypertension; Z79.82 Long term (current) use of aspirin; Z79.01 Long term (current) use of anticoagulants; Z79.899 Other long term (current) drug therapy; Z88.2 Allergy status to sulfonamides; Z88.8 Allergy status to other drugs, medicaments and biological substances

== ENCOUNTER → 2021-04-19 | Outpatient (CLI) | payer MEDICARE, OTHER ==
[~2021-04-19] MED LIST changes: +ESOM20CA25; +ROSU20TA5; +XARE20TA
== END ==
LOC: M WUC 10:58
PROVIDERS: ATTEND Physician Assistant
DX: I27.82 Chronic pulmonary embolism (principal)

== ENCOUNTER 2021-05-27 16:54 | Emergency (ER) | payer MEDICARE, OTHER ==
[~2021-05-27] VITALS: Ht 180.3 cm; Wt 81.7 kg
[2021-05-27 16:58] VITALS: BP 130/61
[2021-05-27 21:32] LABS: BASO % 0.7 % (0.0-1.0); EOS # 0.3 10^3/uL (0.0-0.5); HEMATOCRIT 31.8 % (42.0-52.0); HEMOGLOBIN 9.8 g/dl (13.5-17.5); LYMPH # 1.1 10^3/uL (1.5-5.0); LYMPH % 19.1 % (24.0-44.0); MEAN CORPUSCULAR HEMOGLOBIN 26.5 pg (27.0-33.0); MEAN CORPUSCULAR HGB CONC 30.8 g/dl (32.0-36.5); MEAN CORPUSCULAR VOLUME 85.9 fl (80.0-96.0); MONO # 0.6 10^3/uL (0.0-0.8); MONO % 10.3 % (2.0-8.0); NEUTROPHILS # 3.8 10^3/uL (1.5-8.5); NEUTROPHILS % 64.6 % (36.0-66.0); PLATELET COUNT, AUTOMATED 265 10^3/uL (150-450); WHITE BLOOD COUNT 5.9 10^3/uL (4.0-10.0)
[2021-05-27 21:56] LABS: ALBUMIN 3.7 GM/DL (3.2-5.2); ALT/SGPT 29 U/L (12-78); BILIRUBIN,DIRECT < 0.1 MG/DL (0.0-0.2); BILIRUBIN,TOTAL 0.2 MG/DL (0.2-1.0); BLOOD UREA NITROGEN 18 MG/DL (7-18); CALCIUM LEVEL 8.7 MG/DL (8.8-10.2); CARBON DIOXIDE LEVEL 28 MEQ/L (21-32); CHLORIDE LEVEL 110 MEQ/L (98-107); GLOMERULAR FILTRATION RATE > 60.0 (>42); GLUCOSE, FASTING 87 MG/DL (70-100); LIPASE 100 U/L (73-393); POTASSIUM SERUM 4.2 MEQ/L (3.5-5.1); SODIUM LEVEL 143 MEQ/L (136-145); TOTAL PROTEIN 6.7 GM/DL (6.4-8.2)
== END 2021-05-28 01:29 | disposition left against medical advice (07) ==
LOC: M ED 16:54
DX: Z53.21 Procedure and treatment not carried out due to patient leaving prior to being seen by health care provider (principal)

== ENCOUNTER → 2021-05-30 | Outpatient (CLI) | payer MEDICARE, OTHER | LOC: M WUC 10:29 | PROVIDERS: ATTEND Physician Assistant | DX: I27.82 Chronic pulmonary embolism (principal) ==

== ENCOUNTER → 2021-06-19 | Outpatient (REF) | payer MEDICARE, OTHER | LOC: M LAB REF 13:02 | PROVIDERS: ATTEND Internal Medicine Pulmonary Disease | DX: I27.82 Chronic pulmonary embolism (principal); I12.9 Hypertensive chronic kidney disease with stage 1 through stage 4 chronic kidney disease, or unspecified chronic kidney disease; D41.02 Neoplasm of uncertain behavior of left kidney; D63.1 Anemia in chronic kidney disease; N18.9 Chronic kidney disease, unspecified ==

== ENCOUNTER → 2021-06-24 | Outpatient (CLI) | payer MEDICARE, OTHER ==
--- NOTE | 2021-06-24 14:05 | REP ---
INDICATION: CHRONIC PULMONARY EMBOLISM. COMPARISON: 06/26/2020 TECHNIQUE: PA and lateral FINDINGS: There is a large hiatal hernia status quo. A few curvilinear opacities have developed in the left lower lobe. There is evidence of bibasilar fibrotic change. Heart is not enlarged. The osseous structures are unchanged. IMPRESSION: New curvilinear left lower lobe opacities likely subsegmental atelectatic changes, however, consider follow-up. Other findings as described above. <Electronically signed by Ramirez Cheney > 06/24/21 [id number]
== END ==
LOC: M PLAIMG 10:44
PROVIDERS: ATTEND Internal Medicine Pulmonary Disease
DX: I27.82 Chronic pulmonary embolism (principal); K44.9 Diaphragmatic hernia without obstruction or gangrene; R91.8 Other nonspecific abnormal finding of lung field

== ENCOUNTER 2021-06-25 16:13 | Emergency (ER) | payer MEDICARE, OTHER ==
[~2021-06-25] VITALS: Ht 177.8 cm; Wt 82.2 kg
--- OUTSIDE RECORDS SUMMARY | 2021-06-25 16:40 | CCD | Continuity of Care Document ---
Author Author Levy MERCER D.O. Organization [place] [address] Phone [phone] Care Team Providers Care Administrative Support Technician Name Role Phone Diaz Mendez M.D. AUTM [phone] Annie Rashid M.D. AUTM [phone] Problems Active Problems Provider Date Chronic obstructive lung disease Jonathan Mercer D.O. Onset: 05/15/2015 Acute exacerbation of chronic obstructive airways disease Ro alison Mercer D.O. Onset: 08/30/2014 Full respiratory system examination Jonathan Mercer D.O. Onse t: 06/13/2014 Emphysematous bronchitis Jonathan Mercer D.O. Onset: 01/21/20 14 Difficulty breathing Jonathan Mercer D.O. Onset: 01/20/2014 Ex-smoker Jonathan Mercer D.O. Onset: 01/20/2014 Bronchiolectasis Jonathan Mercer D.O. Onset: 09/09/2017 Wheezing Jonathan Mercer D.O. Onset: 06/11/2020 Social History Type Date Description Comments Sex Unknown ETOH Use 3 A Day Tobacco Use Start: Unknown End: Unknown Patient is a former smoker hx: 2ppd x 30 yrs, quit 1988 Recreational Drug Use Denies Drug Use Smoking Status Reviewed: 06/19/21 Patient is a former smoker hx : 2ppd x 30 yrs, quit 1988 Allergies and adverse reactions Active Allergies Criticality Reaction | Severity Comments Date Sulfa Antibiotics Unable to assess criticality 01/20/2014 Timolol Unable to assess criticality 01/20/2014 Medications Active Medications SIG Qnty Indications Ordering Provide r Date Xarelto 20mg Tablets one 20 mg tab by mouth daily Dx: Pulmonary embolism 30tabs Andrew CarrasquilloOJamil 12/18/2020 Symbicort 160-4.5mcg/Act Aerosol Inhale Two Puffs By Mouth Twice A Day 10.2units Jonathan Mercer D.O. 01/20/2014 Ropinirole HCL 0.5mg Tablets 2 tabs by mouth at bedtime Unknown Aspir-[address] 1 po qd Unknown Spiriva Handihaler 18mcg Capsules 1 cap inhalation every in the morning 30caps Andrew CarrasquilloO. Albuterol Sulfate (2 .5mg/3ML) 0.083% Nebulizer 1 vial via neb four times a day, as needed dx:j44.9 360units J44.9 Andrew CarrasquilloOJamil Proventil HFA 108(90Base) mcg/Act Aerosol 2 puffs four times a day as needed 3units Parminder Carrasquillo Multivitamin Adult Tablets 1 by mouth every day Unknown Citalopram Hydrobromide 20mg Table ts 1 by mouth every day Unknown Immunizations CPT Code Status Date Vaccine Lot # [id number] Given 05/17/2020 Flublock, Quadrivalent [id number] Given 05/25/2013 Influenza Vaccine 3 Years Of Age Or Older (Flulaval) Vital Signs Date Vital Result Comment 06/19/2021 10:08am BP Systolic 110 mmHg BP Diastolic 74 mmHg Heart Rate 64 /min O2 % BldC Oximetry 99 % Height 69 inches 5'9" Weight 179.00 lb BMI (Body Mass Index) 26.4 kg/m2 [place] Body Weight 160 lb Weight 81.194 kg BSA (Body Surface Area) 1.97 m2 01/01/2021 1:15pm BP Systolic 120 mmHg BP Diastolic 60 mmHg Heart Rate 68 /min O2 % BldC Oximetry 97 % Body Temperature 97.7 F Height 69 inches 5'9" Weight 179.00 lb BMI (Body Mass Index) 26.4 kg/m2 [place] Body Weight 160 lb Weight 81.194 kg BSA (Body Surface Area) 1.97 m2 Results Test Acquired Date Facility Test Result H/L Range Note Laboratory test finding 06/19/2021 [facility] Main Lab [address] [place] [address] [phone] Hemoglobin 9.4 g/dL Low 13.5-17.5 FVL/Chapo 06/19/2021 [employer] PDFReport SEE IMAGE FVC-Pred 3.90 L FVC-Pre 2.38 L FVC-%Pred-Pre 60 L FVC-LLN 3.00 L Fev1-Pred 2.78 L Fev1-Pre 1.43 L Fev1-%Pred-Pre 51 L Fev1-LLN 2.01 L Fev6-Pred 3.64 L Fev6-Pre 2.38 L Fev6-%Pred-Pre 65 L Fev6-LLN 2.76 L Luj9pod-Zrth 72 % Tem1epn-Faf 60 % Uox0ded-%Pred-Pre 83 % Tri7rbt-ORB 62 % Fsf0otg-Iisd 93 % Mqd5ygb-Vrd 100 % Vgp9yyz-%Pred-Pre 107 % FEFMax-Pred 7.13 L/E/sec FEFMax-Pre 3.96 L/E/sec FEFMax-%Pred-Pre 55 L/E/sec FEFMax-LLN 4.88 L/E/sec Efw6450-Tjeu 1.93 L/E/sec Ojb7503-Geg 0.73 L/E/sec Bwb3462-%Pred-Pre 37 L/E/sec Ncz5851-VJV 0.38 L/E/sec ExpTime-Pre 6.87 sec Ewq0aps3-Ijja 76 % Dso0bcs8-Qkm 60 % Nrl1zqw0-%Pred-Pre 78 % Gfq4huy5-VCQ 67 % Laboratory test finding 05/30/2021 [facility] Main Lab [address] [place] [address] [phone] Hemoglobin 9.5 g/dL Low 13.5-17.5 Laboratory test finding 04/19/2021 [facility] Main Lab [address] [place], [place] [id number] [phone] Hemoglobin 10.2 g/dL Low 13.5-17.5 Laboratory test finding 02/28/2021 [facility] Main Lab [address] [place] [address] [phone] Hemoglobin 10.4 g/dL Low 13.5-17.5 Hemoglobin A1c 01/30/2021 [facility] Main Lab [address] [place] [address] [phone] Hemoglobin A1c 6.0 % Normal 1 Estimated Average Glucose 126 mg/dL High 60-110 BUN & Creatinine ([facility]) 01/01/2021 [facility] Main Lab [address] [place] [address] [phone] Blood Urea Nitrogen 19 mg/dL High 7-18 Creatinine With GFR 01/01/2021 [facility] Main Lab [address] [place] [address] [phone] Creatinine For GFR 0.92 mg/dL Normal 0.70-1.30 Glomerular Filtration Rate > 60.0 Normal >42 2 Complete Blood Count 01/01/2021 [facility] enter Main Lab [address] [place] [address] [phone] White Blood Count 4.9 10 Normal 4.0-10.0 Red Blood Count 3.85 10 Low 4.30-6.10 Hemoglobin 11.4 g/dL Low 13.5-17.5 Hematocrit 35.8 % Low 42.0-52.0 Mean Corpuscular Volume 93.0 fl Normal 80.0-96.0 Mean Corpuscular Hemoglobin 29.6 pg Normal 27.0-33.0 Mean Corpuscular HGB Conc 31.8 g/dL Low 32.0-36.5 Red Cell Distribution Width 12.7 % Normal 11.5-14.5 Platelet Count, Automated 284 10 Normal 150-450 Nucleated Red Blood Cell % 0.0 % Normal 0-0 1 REFERENCE RANGES: <=5.6% NORMAL 5.7-6.4% SUGGESTS IMPAIRED GLUCOSE META BOLISM/PREDIABETIC >= 6.5% ABNORMAL 2 Units are mL/min/1.73 m2 Chronic Kidney Disease Staging per NKF: Stage I & II GFR >=60 Normal to Mildly Decreased Stage III GFR 30-59 Moderately Decreased Stage IV GFR 15-29 Severely Decreased Stage V GFR <15 Very Little GFR Left ESRD GFR <15 on COIL [employer]ER Procedures Date Code Description Status 01/01/2021 44961 Office/Outpatient Established Mo d MDM 30-39 Min Completed Medical Devices Description No Information Available Encounters Type Date Location Provider Dx Diagnosis Office Visit 01/01/2021 1:30p [facility] Jonathan ars, D.O. I27.82 Chronic pulmonary embolism J44.9 Chronic obstructive pulmonar y disease, unspecified Z87.891 Personal history of nicotine dependence Assessments Date Code Description Provider 06/19/2021 R06.02 Dyspnea Jonathan Sears, D.O. 06/19/2021 I27.82 Chronic pulmonary embolism Jonathan Sears, D.O. 06/19/2021 J44.9 Chronic obstructive pulmonary di sease, unspecified Jonathan Sears, D.O. 06/19/2021 Z87.891 Personal history of nicotine dep endence Jonathan Sears, D.O. 06/19/2021 D64.9 Anemia Jonathan Sears, D.O. 01/01/2021 I27.82 Chronic pulmonary embolism Jonathan Sears, D.O. 01/01/2021 J44.9 Chronic obstructive pulmonary di sease, unspecified Jonathan Sears, D.O. 01/01/2021 Z87.891 Personal history of nicotine dep endence Jonathan Sears, D.O. Plan of Treatment 06/19/2021 - Jonathan Silvars, D.O.* R06.02 Dyspnea * I27.82 Chronic pulmonary embolism * J44.9 Chronic obstructive pulmonary disease, unspecified * Z87.891 Personal history of nicotine dependence * D64.9 Anemia * * Follow up:* Follow up in one month with chapo, will call with results of CXR and hemoglobin Functional Status Functional Condition Comment Date Status Independent with all ADL's Activ e Independent with all IADL's Acti ve Mental Status Mental Condition Comment Date Status Cognitive ability not impaired A ctive Referrals Description No Information Available
--- OUTSIDE RECORDS SUMMARY | 2021-06-25 16:40 | CCD | Continuity of Care Document ---
Author Author Levy MERCER D.O. [place] [address] Phone [phone] Care Team Providers Care Secondary Market Manager Name Role Phone Diaz Mendez M.D. AUTM [phone] Annie Rashid M.D. AUTM [phone] Problems Active Problems Provider Date Chronic obstructive [...] CPT Code Status Date Vaccine Lot # [id number] Given 05/17/2020 Flublock, Quadrivalent [id number] Given 05/25/2013 Influenza Vaccine 3 Years Of Age Or Older (Flulaval) Vital Signs Date Vital Result Comment 06/19/2021 10:08am BP Systolic 110 mmHg BP Diastolic 74 mmHg Heart Rate 64 /min O2 % BldC Oximetry 99 % Height 69 inches 5'9" Weight 179.00 lb BMI (Body Mass Index) 26.4 kg/m2 [place] Body Weight 160 lb Weight 81.194 kg BSA (Body Surface Area) 1.97 m2 01/01/2021 1:15pm BP Systolic 120 mmHg BP Diastolic 60 mmHg Heart Rate 68 /min O2 % BldC Oximetry 97 % Body Temperature 97.7 F Height 69 inches 5'9" Weight 179.00 lb BMI (Body Mass Index) 26.4 kg/m2 [place] Body Weight 160 lb Weight 81.194 kg BSA (Body Surface Area) 1.97 m2 Results Test Acquired Date Facility Test Result H/L Range Note Laboratory test finding 06/19/2021 [facility] Main Lab [address] [place] [address] [phone] Hemoglobin 9.4 g/dL Low 13.5-17.5 FVL/Chapo 06/19/2021 [employer] PDFReport SEE IMAGE FVC-Pred 3.90 L FVC-Pre 2.38 L FVC-%Pred-Pre 60 L FVC-LLN 3.00 L Fev1-Pred 2.78 L Fev1-Pre 1.43 L Fev1-%Pred-Pre 51 L Fev1-LLN 2.01 L Fev6-Pred 3.64 L Fev6-Pre 2.38 L Fev6-%Pred-Pre 65 L Fev6-LLN 2.76 L Rvp0oin-Ocpa 72 % Gmn4gaz-Rcy 60 % Fni9bvr-%Pred-Pre 83 % Pla1tsu-AZO 62 % Ecb2rua-Xvlk 93 % Bkq5ygq-Rfy 100 % Ghr5gnz-%Pred-Pre 107 % FEFMax-Pred 7.13 L/E/sec FEFMax-Pre 3.96 L/E/sec FEFMax-%Pred-Pre 55 L/E/sec FEFMax-LLN 4.88 L/E/sec How2327-Zudu 1.93 L/E/sec Urp9471-Man 0.73 L/E/sec Zpd8436-%Pred-Pre 37 L/E/sec Jxa2371-ARR 0.38 L/E/sec ExpTime-Pre 6.87 sec Twn6plb7-Kiwy 76 % Tqq9amq3-Lim 60 % Nxp0bss5-%Pred-Pre 78 % Exy4yll2-GML 67 % Laboratory test finding 05/30/2021 [facility] Main Lab [address] [place] [address] [phone] Hemoglobin 9.5 g/dL Low 13.5-17.5 Laboratory test finding 04/19/2021 [facility] Main Lab [address] [place], [place] [address] [phone] Hemoglobin 10.2 g/dL Low 13.5-17.5 Laboratory test finding 02/28/2021 [facility] Main Lab [address] [place] [address] [phone] Hemoglobin 10.4 g/dL Low 13.5-17.5 Hemoglobin A1c 01/30/2021 [facility] Main Lab [address] [place] [address] [phone] Hemoglobin A1c 6.0 % Normal 1 Estimated Average Glucose 126 mg/dL High 60-110 BUN & Creatinine ([facility]) 01/01/2021 [facility] Main Lab [address] [place] [address] [phone] Blood Urea Nitrogen 19 mg/dL High 7-18 Creatinine With GFR 01/01/2021 [facility] Main Lab [address] [place] [address] [phone] Creatinine For GFR 0.92 mg/dL Normal 0.70-1.30 Glomerular Filtration Rate > 60.0 Normal >42 2 Complete Blood Count 01/01/2021 [facility] enter Main Lab [address] [place] [address] [phone] White Blood Count 4.9 10 Normal 4.0-10.0 [...] Little GFR Left ESRD GFR <15 on SP[employer]ITUAL COUNSELOR Procedures Date Code Description Status 01/01/2021 07670 Office/Outpatient Established Mo d MDM 30-39 Min Completed Medical Devices Description No Information Available Encounters Type Date Location Provider Dx Diagnosis Office Visit 01/01/2021 1:30p [facility] Jonathan ars, D.O. I27.82 Chronic pulmonary [...]
--- OUTSIDE RECORDS SUMMARY | 2021-06-25 16:40 | CCD | Continuity of Care Document ---
Author Author Levy MERCER D.O. [place] [address] Phone [phone] Care Team Providers Care Applications Manager Name Role Phone Diaz Mendez M.D. AUTM [phone] Annie Rashid M.D. AUTM [phone] Problems Active Problems Provider Date Chronic obstructive [...] CPT Code Status Date Vaccine Lot # [id number] Given 05/17/2020 Flublock, Quadrivalent [id number] Given 05/25/2013 Influenza Vaccine 3 Years Of Age Or Older (Flulaval) Vital Signs Date Vital Result Comment 06/19/2021 10:08am BP Systolic 110 mmHg BP Diastolic 74 mmHg Heart Rate 64 /min O2 % BldC Oximetry 99 % Height 69 inches 5'9" Weight 179.00 lb BMI (Body Mass Index) 26.4 kg/m2 [place] Body Weight 160 lb Weight 81.194 kg BSA (Body Surface Area) 1.97 m2 01/01/2021 1:15pm BP Systolic 120 mmHg BP Diastolic 60 mmHg Heart Rate 68 /min O2 % BldC Oximetry 97 % Body Temperature 97.7 F Height 69 inches 5'9" Weight 179.00 lb BMI (Body Mass Index) 26.4 kg/m2 [place] Body Weight 160 lb Weight 81.194 kg BSA (Body Surface Area) 1.97 m2 Results Test Acquired Date Facility Test Result H/L Range Note Laboratory test finding 06/19/2021 [facility] Main Lab [address] [place] [address] [phone] Hemoglobin 9.4 g/dL Low 13.5-17.5 FVL/Chapo 06/19/2021 [employer] PDFReport SEE IMAGE FVC-Pred 3.90 L FVC-Pre 2.38 L FVC-%Pred-Pre 60 L FVC-LLN 3.00 L Fev1-Pred 2.78 L Fev1-Pre 1.43 L Fev1-%Pred-Pre 51 L Fev1-LLN 2.01 L Fev6-Pred 3.64 L Fev6-Pre 2.38 L Fev6-%Pred-Pre 65 L Fev6-LLN 2.76 L Xrm2vwu-Nmxd 72 % Gst7igq-Stk 60 % Dof9byq-%Pred-Pre 83 % Fiv7lsf-PPD 62 % Zrf5err-Itmv 93 % Nvd1pue-Dzf 100 % Gqn2gqq-%Pred-Pre 107 % FEFMax-Pred 7.13 L/E/sec FEFMax-Pre 3.96 L/E/sec FEFMax-%Pred-Pre 55 L/E/sec FEFMax-LLN 4.88 L/E/sec Kxf2068-Gxtl 1.93 L/E/sec Ujm0667-Lvp 0.73 L/E/sec Mmn9349-%Pred-Pre 37 L/E/sec Xey1155-BXA 0.38 L/E/sec ExpTime-Pre 6.87 sec Hmq6tmu8-Ptuu 76 % Llj0awq9-Ynv 60 % Dfh9emu0-%Pred-Pre 78 % Spm6mar8-VST 67 % Laboratory test finding 05/30/2021 [facility] Main Lab [address] [place] [address] [phone] Hemoglobin 9.5 g/dL Low 13.5-17.5 Laboratory test finding 04/19/2021 [facility] Main Lab [address] [place], [place] [address] [phone] Hemoglobin 10.2 g/dL Low 13.5-17.5 Laboratory test finding 02/28/2021 [facility] Main Lab [address] [place] [address] [phone] Hemoglobin 10.4 g/dL Low 13.5-17.5 Hemoglobin A1c 01/30/2021 [facility] Main Lab [address] [place] [address] [phone] Hemoglobin A1c 6.0 % Normal 1 Estimated Average Glucose 126 mg/dL High 60-110 BUN & Creatinine ([facility]) 01/01/2021 [facility] Main Lab [address] [place] [address] [phone] Blood Urea Nitrogen 19 mg/dL High 7-18 Creatinine With GFR 01/01/2021 [facility] Main Lab [address] [place] [address] [phone] Creatinine For GFR 0.92 mg/dL Normal 0.70-1.30 Glomerular Filtration Rate > 60.0 Normal >42 2 Complete Blood Count 01/01/2021 [facility] enter Main Lab [address] [place] [address] [phone] White Blood Count 4.9 10 Normal 4.0-10.0 [...] Little GFR Left ESRD GFR <15 on MEDICAL BILLER Procedures Date Code Description Status 01/01/2021 18234 Office/Outpatient Established Mo d MDM 30-39 Min Completed Medical Devices Description No Information Available Encounters Type Date Location Provider Dx Diagnosis Office Visit 01/01/2021 1:30p [facility] Jonathan ars, D.O. I27.82 Chronic pulmonary [...]
--- OUTSIDE RECORDS SUMMARY | 2021-06-25 16:40 | CCD | Continuity of Care Document ---
Author Author Levy RAZO HI Organization Unknown Address [address] [place] [address], [place] [address] Phone [phone] Care Team Providers Care Inspector Set Up And Lay Out Name Role Phone Isai Rolon MD AUTM [phone] Tiffany Young MD AUTM [phone] Fareed Oneil MD AUTM [phone] Jonathan Roberson DO AUTM [phone] Tara Joseph MD AUTM [phone] Gabe Beck MD AUTM [phone] Diaz Mendez MD AUTM [phone] Annie Rashid MD AUTM [phone] Problems Active Problems Provider Date Coronary arteriosclerosis Pedro Rdz MD Onset: 2011 Palpitations Pedro Rdz MD Onset: 10/24/2011 Difficulty breathing Pedro Rdz MD Onset: 10/20/2013 Mixed hyperlipidemia Pedro Rdz MD Onset: 10/20/2013 Chest pain Pedro Rdz MD Onset: 08/13/2015 Atherosclerotic heart disease of cheesh-na coronary arter y without angina pectoris Pedro Rdz MD Onset: 08/13/2015 Overweight Pedro Rdz MD Onset: 09/18/2016 Dyspnea Pedro Rdz MD Onset: 09/18/2016 Precordial pain Pedro Rdz MD Onset: 09/18/2016 Chronic diastolic heart failure Pedro Rdz MD Onset: 10/14/2016 Dietary management surveillance Pedro Rdz MD Onset: 09/02/2017 Impending infarction Pedro Rdz MD Onset: 09/02/2017 Preoperative cardiovascular examination MARY Christianson Onset: 12/10/2017 Disturbance in sleep behavior MARY Christianson Onset: Electrocardiogram abnormal MARY Christianson Onset: 06/07 Social History Type Date Description Comments Sex Unknown Tobacco Use Start: Unknown End: Unknown Former Cigarette Smo ker Quit 1989. Smoked 3ppd x30 yrs ETOH Use Consumes Beer Consumes 2 beer daily Thursday-Thursday; none on weekends Tobacco Use Start: Unknown End: Unknown Patient is a former smoker started 1956 smoked 2-3 ppd quit 1983 Smoking Status Reviewed: 06/21/21 Patient is a former smoker st arted 1956 smoked 2-3 ppd quit 1983 Exercise Type/Frequency Does yardwork daily Exercise Type/Frequency Does housework sporadica lly Exercise Type/Frequency Walks sporadically Exercise Limitations Shortness Of Breath Allergies and adverse reactions Active Allergies Criticality Reaction | Severity Comments Date Sulfa Unable to assess criticality dizziness 04/16/2010 Timolol Unable to assess criticality vertigo, nos e bleeds 10/24/2011 Simvastatin Unable to assess criticality breast tende rness, ecchymosis 09/02/2017 Spironolactone Unable to assess criticality breast tenderness 09/30/2017 Medications Active Medications SIG Qnty Indications Ordering Provide r Date Ropinirole HCL 0.5mg Tablets 2 by mouth daily at bedtime Latasha Anderson PA Hydrocodone-Acetaminophen 5-325mg Tablets 1 by mouth every 6 hours as needed Unknown 09/29/2017 Benzonatate 100mg Capsules 1 by mouth three times a day as needed for cough Unknown 09/29/2017 Rosuvastatin Calcium 20mg Tablets Take One Tablet By Mouth AT Bedtime 90tabs E78.2 Pedro Rdz MD 09/02/2017 Vitamin D (Ergocalciferol) 43819Pwla Capsules 1 by mouth every other weekly Unknown 09/01/2017 Vitamin B-12 5000mcg Tablets Dispe rs 1 by mouth daily Unknown 09/17/2016 Nitrostat 0.4mg Tablets Sub 1 sl every 5min x3 as needed for chest pain 25tabs I25.10 Levy Griffin MD 02/08/2016 Pantoprazole Sodium 40mg Tablets D R 1 by mouth every day Unknown 08/12/2015 Citalopram Hydrobromide 20mg Table ts 1 by mouth every day Unknown 10/15/2014 Spiriva Handihaler 18mcg Capsules 1 puff daily Unknown 10/15/2014 Symbicort 160-4.5mcg/Act Aerosol 2 puff twice a day Unknown 10/15/[address] 1 po qd Isai Rolon MD 04/16/2010 Multi Vitamin/Minerals Full Spectrum Tablets one daily Isai Rolon MD 04/16/2010 Proventil HFA 108(90Base) mcg/Act Aerosol 2 puffs as needed Isai Rolon MD Immunizations Description No Information Available Vital Signs Date Vital Result Comment 06/21/2021 10:36am Weight 178.00 lb Height 71 inches 5'11" BMI (Body Mass Index) 24.8 kg/m2 Heart Rate 61 /min Respiratory Rate 14 /min BP Systolic Sitting 118 mmHg Ra, medium cuff BP Diastolic Sitting 72 mmHg Ra, medium cuff O2 % BldC Oximetry 98 % 01/30/2020 9:13am Weight 185.00 lb Height 71 inches 5'11" BMI (Body Mass Index) 25.8 kg/m2 Heart Rate 55 /min BP Systolic Sitting 112 mmHg large cuff, Ra BP Diastolic Sitting 68 mmHg large cuff, Ra Results Description No Information Available Procedures Date Code Description Status 06/21/2021 54221 Office/Outpatient Established Mo d MDM 30-39 Min Completed 06/21/2021 43838 ECG 12-Lead Completed Medical Devices Description No Information Available Encounters Type Date Location Provider Dx Diagnosis Office Visit 06/21/2021 10:45a Main Office MARY Ga R06 .02 Shortness of breath I25.10 Athscl heart disease of mignon ve coronary artery w/o ang pctrs I50.32 Chronic diastolic (congestiv e) heart failure E78.2 Mixed hyperlipidemia R94.31 Abnormal electrocardiogram [ ECG] [EKG] Z71.3 Dietary counseling and surve illance Assessments Date Code Description Provider 06/21/2021 R06.02 Shortness of breath MARY Ga 06/21/2021 I25.10 Atherosclerotic heart disease of cheesh-na coronary artery with MARY Ga 06/21/2021 I50.32 Chronic diastolic (congestive) h eart failure MARY Ga 06/21/2021 E78.2 Mixed hyperlipidemia MARY Mendoza 06/21/2021 R94.31 Abnormal electrocardiogram [ECG] [EKG] MARY Ga 06/21/2021 Z71.3 Dietary counseling and surveilla nce MARY Ga Plan of Treatment Future Appointment(s):* 09/23/2021 9:30 am - MARY Ga at Main Office * 09/16/2021 9:00 am - ECHO at Main Office 06/21/2021 - MARY Ga* R06.02 Shortness of breath* New Labs:* D Dimer, Ordered: 06/21/21 * Recommendations:* Cardiac PET scan, echocardiogram Doppler, and lab work have been ordered for further evaluation Patient will be having a chest x-ray later on today, will obtain a copy when this is available * I25.10 Atherosclerotic heart disease of cheesh-na coronary artery with* New Xrays:* PET Myocardial Perfusion Multi Study AT [facility] And [facility], Ordered: 06/21/21 * Recommendations:* Continue aspirin and rosuvastatin at the current dosages Patient has nitroglycerin to use on an as-needed basis if symptoms arise - new rx called in Cardiac PET scan ordered for further evaluation Advised patient to contact our office with any worsening chest pain, shortness of breath, new or concerning symptoms * I50.32 Chronic diastolic (congestive) heart failure* New Labs:* NT Probnp QN Ser/Plas, Ordered: 06/21/21 * CMP & CBC, Ordered: 06/21/21 * New Xrays:* US Echocardiogram Transthoracic W Doppler And Color Flow, Scheduled: 09/16/21 * Recommendations:* No medication changes made today Please alert our office with a weight gain of more than 3 pounds or lower extremity edema Please alert the office with any worsening shortness of breath Echocardiogram Doppler and labs have been ordered for further evaluation, will obtain a copy of patient's chest x-ray he will be having later today * E78.2 Mixed hyperlipidemia* Recommendations:* Continue rosuvastatin at the current dosage * R94.31 Abnormal electrocardiogram [ECG] [EKG]* Recommendations:* No further evaluation is needed at this time. * Z71.3 Dietary counseling and surveillance* Recommendations:* Recommended for patient to follow a more whole food diet. Advised patient to avoid overly processed foods and packaged foods. Advised patient to avoid sodas, juices and other liquid calories. Recommended at least 30 minutes of exercise 3 days a week. * All * Follow up:* CV after cardiac testing Functional Status Functional Condition Comment Date Status Independent with all ADL's Activ e Mental Status Description No Information Available Referrals Description No Information Available
--- OUTSIDE RECORDS SUMMARY | 2021-06-25 16:40 | CCD | Continuity of Care Document ---
Author Author Levy RAZO [place] Organization Unknown Address [address] [place] [address], [place] [address] Phone [phone] Care Team Providers Care Slip Box Changer Name Role Phone Isai Rolon MD AUTM [phone] Tiffany Young MD AUTM [phone] Fareed Oneil MD AUTM [phone] Jonathan Roberson DO AUTM [phone] Tara Joseph MD AUTM [phone] Gabe Beck MD AUTM [phone] Diaz Mendez MD AUTM [phone] Annie Rashid MD AUTM [phone] Problems Active Problems Provider Date Coronary arteriosclerosis Pedro Rdz MD Onset: 2011 Palpitations Pedro Rdz MD Onset: 10/24/2011 Difficulty breathing Pedro Rdz MD Onset: 10/20/2013 Mixed hyperlipidemia Pedro Rdz MD Onset: 10/20/2013 Chest pain Pedro Rdz MD Onset: 08/13/2015 Atherosclerotic heart disease of [place] coronary arter y without angina pectoris Pedro Rdz MD Onset: 08/13/2015 Overweight Pedro Rdz MD Onset: 09/18/2016 Dyspnea Pedor Rdz MD Onset: 09/18/2016 Precordial pain Pedro [...] Pedro Rdz MD 09/02/2017 Vitamin D (Ergocalciferol) 24830Ceau Capsules 1 by mouth every other weekly [...] 5'11" BMI (Body Mass Index) 24.8 kg/m2 01/30/2020 9:13am Weight 185.00 lb Height 71 inches 5'11" BMI (Body Mass Index) 25.8 kg/m2 Heart Rate 55 /min BP Systolic Sitting 112 mmHg large cuff, Ra BP Diastolic Sitting 68 mmHg large cuff, Ra Results Description No Information Available Procedures Date Code Description Status 06/21/2021 17571 Office/Outpatient Established Mo d MDM 30-39 Min Completed 06/21/2021 81357 ECG 12-Lead Completed Medical Devices Description No [...] Ga 06/21/2021 I25.10 Atherosclerotic heart disease of [place] coronary artery with MARY Ga 06/21/2021 I50.32 Chronic diastolic (congestive) h eart failure MARY Ga 06/21/2021 E78.2 Mixed hyperlipidemia MARY Mendoza 06/21/2021 R94.31 Abnormal electrocardiogram [ECG] [EKG] MARY Ga 06/21/2021 Z71.3 Dietary counseling and surveilla nce MARY Ga Plan of Treatment 06/21/2021 - MARY Ga* R06.02 Shortness of breath* New Labs:* D Dimer, Ordered: 06/21/21 * I25.10 Atherosclerotic heart disease of [place] coronary artery with* New Xrays:* PET Myocardial Perfusion Multi Study AT Rest And Stress, Ordered: 06/21/21 * Recommendations:* Continue aspirin and rosuvastatin at the current dosages Patient has nitroglycerin to use on an as-needed basis if symptoms arise - new rx called in Cardiac PET scan ordered for further evaluation * I50.32 Chronic diastolic (congestive) heart failure* New Labs:* NT Probnp QN Ser/Plas, Ordered: 06/21/21 * CMP & CBC, Ordered: 06/21/21 * New Xrays:* US Echocardiogram Transthoracic W Doppler And Color Flow, Ordered: 06/21/21 * Recommendations:* No medication changes made today Please alert our office with a weight gain of more than 3 pounds or lower extremity edema * E78.2 Mixed hyperlipidemia* Recommendations:* Continue rosuvastatin [...]
--- OUTSIDE RECORDS SUMMARY | 2021-06-25 16:41 | CCD | Continuity of Care Document ---
Author Author Levy MERCER D.O. Organization [place] [address] Phone [phone] Care Team Providers Care Assembler Ping Pong Table Name Role Phone Diaz Mendez M.D. AUTM [phone] Annie Rashid M.D. AUTM [phone] Problems Active Problems Provider Date Chronic obstructive [...] CPT Code Status Date Vaccine Lot # [id number] Given 05/17/2020 Flublock, Quadrivalent [id number] Given 05/25/2013 Influenza Vaccine 3 Years Of Age Or Older (Flulaval) Vital Signs Date Vital Result Comment 06/19/2021 10:08am BP Systolic 110 mmHg BP Diastolic 74 mmHg Heart Rate 64 /min O2 % BldC Oximetry 99 % Height 69 inches 5'9" Weight 179.00 lb BMI (Body Mass Index) 26.4 kg/m2 [place] Body Weight 160 lb Weight 81.194 kg BSA (Body Surface Area) 1.97 m2 01/01/2021 1:15pm BP Systolic 120 mmHg BP Diastolic 60 mmHg Heart Rate 68 /min O2 % BldC Oximetry 97 % Body Temperature 97.7 F Height 69 inches 5'9" Weight 179.00 lb BMI (Body Mass Index) 26.4 kg/m2 [place] Body Weight 160 lb Weight 81.194 kg BSA (Body Surface Area) 1.97 m2 Results Test Acquired Date Facility Test Result H/L Range Note Laboratory test finding 06/19/[address] [facility] Main Lab [address] [place] [address] [phone] Hemoglobin 9.4 g/dL Low 13.5-17.5 FVL/Chapo 06/19/2021 [facility] PDFReport SEE IMAGE FVC-Pred 3.90 L FVC-Pre 2.38 L FVC-%Pred-Pre 60 L FVC-LLN 3.00 L Fev1-Pred 2.78 L Fev1-Pre 1.43 L Fev1-%Pred-Pre 51 L Fev1-LLN 2.01 L Fev6-Pred 3.64 L Fev6-Pre 2.38 L Fev6-%Pred-Pre 65 L Fev6-LLN 2.76 L Vce7bec-Ljcg 72 % Nou8wxb-Vcz 60 % Jil2gxs-%Pred-Pre 83 % Fsz5cww-IWZ 62 % Zwe1jxi-Nngs 93 % Mlx7xsu-Rgn 100 % Gnb1swt-%Pred-Pre 107 % FEFMax-Pred 7.13 L/E/sec FEFMax-Pre 3.96 L/E/sec FEFMax-%Pred-Pre 55 L/E/sec FEFMax-LLN 4.88 L/E/sec Epq6352-Hpsd 1.93 L/E/sec Aat2777-Ood 0.73 L/E/sec Oij8398-%Pred-Pre 37 L/E/sec Zmp1232-FPC 0.38 L/E/sec ExpTime-Pre 6.87 sec Uhh9dhd9-Ddmw 76 % Gnp3vei7-Ndu 60 % Unt9ndz9-%Pred-Pre 78 % Fxy6pos1-UVP 67 % Laboratory test finding 05/30/[address] [facility] Main Lab [address] [place] [address] [phone] Hemoglobin 9.5 g/dL Low 13.5-17.5 Laboratory test finding 04/19/[address] [facility] Main Lab [address] [place], [place] [address] [phone] Hemoglobin 10.2 g/dL Low 13.5-17.5 Laboratory test finding 02/28/[address] [facility] Main Lab [address] [place] [address] [phone] Hemoglobin 10.4 g/dL Low 13.5-17.5 Hemoglobin A1c 01/30/2021 [facility] Main Lab [address] [place] [address] [phone] Hemoglobin A1c 6.0 % Normal 1 Estimated Average Glucose 126 mg/dL High 60-110 BUN & Creatinine ([facility]) 01/01/2021 [facility] Main Lab [address] [place] [address] [phone] Blood Urea Nitrogen 19 mg/dL High 7-18 Creatinine With GFR 01/01/2021 [facility] Main Lab [address] [place] [address] [phone] Creatinine For GFR 0.92 mg/dL Normal 0.70-1.30 Glomerular Filtration Rate > 60.0 Normal >42 2 Complete Blood Count 01/01/2021 [facility] enter Main Lab [address] [place] [address] [phone] White Blood Count 4.9 10 Normal 4.0-10.0 [...] Little GFR Left ESRD GFR <15 on HEARSE DRIVER Procedures Date Code Description Status 01/01/2021 32241 Office/Outpatient Established Mo d MDM 30-39 Min Completed Medical Devices Description No Information Available Encounters Type Date Location Provider Dx Diagnosis Office Visit 01/01/2021 1:30p [facility] Jonathan ars, D.O. I27.82 Chronic pulmonary [...]
--- OUTSIDE RECORDS SUMMARY | 2021-06-25 16:41 | CCD | Continuity of Care Document ---
Author Author Levy MERCER D.O. [place] [address] Phone [phone] Care Team Providers Care Electric Meter Technician Name Role Phone Diaz Mendez M.D. AUTM [phone] Annie Rashid M.D. AUTM [phone] Problems Active Problems Provider Date Chronic obstructive [...] CPT Code Status Date Vaccine Lot # [id number] Given 05/17/2020 Flublock, Quadrivalent [id number] Given 05/25/2013 Influenza Vaccine 3 Years Of Age Or Older (Flulaval) Vital Signs Date Vital Result Comment 06/19/2021 10:08am BP Systolic 110 mmHg BP Diastolic 74 mmHg Heart Rate 64 /min O2 % BldC Oximetry 99 % Height 69 inches 5'9" Weight 179.00 lb BMI (Body Mass Index) 26.4 kg/m2 [place] Body Weight 160 lb Weight 81.194 kg BSA (Body Surface Area) 1.97 m2 01/01/2021 1:15pm BP Systolic 120 mmHg BP Diastolic 60 mmHg Heart Rate 68 /min O2 % BldC Oximetry 97 % Body Temperature 97.7 F Height 69 inches 5'9" Weight 179.00 lb BMI (Body Mass Index) 26.4 kg/m2 [place] Body Weight 160 lb Weight 81.194 kg BSA (Body Surface Area) 1.97 m2 Results Test Acquired Date Facility Test Result H/L Range Note Laboratory test finding 06/19/2021 [facility] Main Lab [address] [place] [address] [phone] Hemoglobin 9.4 g/dL Low 13.5-17.5 FVL/Chapo 06/19/2021 [facility] PDFReport SEE IMAGE FVC-Pred 3.90 L FVC-Pre 2.38 L FVC-%Pred-Pre 60 L FVC-LLN 3.00 L Fev1-Pred 2.78 L Fev1-Pre 1.43 L Fev1-%Pred-Pre 51 L Fev1-LLN 2.01 L Fev6-Pred 3.64 L Fev6-Pre 2.38 L Fev6-%Pred-Pre 65 L Fev6-LLN 2.76 L Roa2rnr-Fgbq 72 % Eau1svg-Obb 60 % Dar3owb-%Pred-Pre 83 % Mog4dgc-AKZ 62 % Jwh5gdq-Opxu 93 % Hsk4jna-Fqd 100 % Blt2kix-%Pred-Pre 107 % FEFMax-Pred 7.13 L/E/sec FEFMax-Pre 3.96 L/E/sec FEFMax-%Pred-Pre 55 L/E/sec FEFMax-LLN 4.88 L/E/sec Sbk4051-Trma 1.93 L/E/sec Ajx0865-Huu 0.73 L/E/sec Tjf7017-%Pred-Pre 37 L/E/sec Epd5011-SOY 0.38 L/E/sec ExpTime-Pre 6.87 sec Etk2xod7-Dqtm 76 % Dtq3dli3-Rjm 60 % Ctc8anr4-%Pred-Pre 78 % Yvu7icp3-QPG 67 % Laboratory test finding 05/30/2021 [facility] Main Lab [address] [place] [address] [phone] Hemoglobin 9.5 g/dL Low 13.5-17.5 Laboratory test finding 04/19/2021 [facility] Main Lab [address] [place], [place] [address] [phone] Hemoglobin 10.2 g/dL Low 13.5-17.5 Laboratory test finding 02/28/2021 [facility] Main Lab [address] [place] [address] [phone] Hemoglobin 10.4 g/dL Low 13.5-17.5 Hemoglobin A1c 01/30/2021 [facility] Main Lab [address] [place] [address] [phone] Hemoglobin A1c 6.0 % Normal 1 Estimated Average Glucose 126 mg/dL High 60-110 BUN & Creatinine ([facility]) 01/01/2021 [facility] Main Lab [address] [place] [address] [phone] Blood Urea Nitrogen 19 mg/dL High 7-18 Creatinine With GFR 01/01/2021 [facility] Main Lab [address] [place] [address] [phone] Creatinine For GFR 0.92 mg/dL Normal 0.70-1.30 Glomerular Filtration Rate > 60.0 Normal >42 2 Complete Blood Count 01/01/2021 [facility] enter Main Lab [address] [place] [address] [phone] White Blood Count 4.9 10 Normal 4.0-10.0 [...] Little GFR Left ESRD GFR <15 on PROGRAM DIRECTOR/MUSIC DIRECTOR Procedures Date Code Description Status 01/01/2021 84528 Office/Outpatient Established Mo d MDM 30-39 Min Completed Medical Devices Description No Information Available Encounters Type Date Location Provider Dx Diagnosis Office Visit 01/01/2021 1:30p [facility] Jonathan ars, D.O. I27.82 Chronic pulmonary [...]
--- OUTSIDE RECORDS SUMMARY | 2021-06-25 16:41 | CCD | Continuity of Care Document ---
Author Author Levy GIL M.D. Organization Unknown Address [address] [place] [address] Phone [phone] Care Team Providers Care Auxiliary Engineer Name Role Phone [employer] AUTM [phone] Jonathan Roberson DO AUTM [phone] Problems Active Problems Provider Date Chronic obstructive lung disease Latasha Anderson P A Onset: 03/29/2021 Mixed hyperlipidemia Latasha Anderson PA Onset: Essential hypertension Latasha Anderson PA Onset: 0 03/29/2021 Major depression, single episode Latasha Anderson P A Onset: 03/29/2021 Social History Type Date Description Comments Sex Unknown Tobacco Use Start: Unknown Never Used Smokeless Tobacco ETOH Use Consumes 2-3 beers per day Tobacco Use Start: Unknown End: Unknown Patient is a former smoker Quit 30 years ago, 3-4 packs a day Recreational Drug Use Never Used Drugs Smoking Status Reviewed: 03/05/20 Patient is a former smoker Qu it 30 years ago, 3-4 packs a day Exercise Type/Frequency Exercises regularly Tattoo/Piercing None Sun Exposure Uses sunscreen Seat Belt/Car Seat Always uses seat belt Bike Helmet Always Smoke Alarms Yes Smoke Alarms Carbon Monoxide Detector: Yes Allergies, Adverse Reactions, Alerts Active Allergies Criticality Reaction | Severity Comments Date Bactrim Unable to assess criticality 03/05/2020 Timolol Unable to assess criticality Palpitations 04/02/2021 Medications Active Medications SIG Qnty Indications Ordering Provide r Date Ropinirole HCL 0.5mg Tablets take 2 tablets by mouth at bedtime 180tabs Latasha Anderson PA 09/30/2019 Symbicort 160-4.5mcg/Act Aerosol 1 puff twice daily Unknown Spiriva Respimat 1.25mcg/Act Aeros ol inhale 2 spray(s) by mouth once daily Unknown Aspir-Low 81mg Tablets DR 1 by mouth every day Unknown Multi Vitamin Daily Tablets 1 by mouth every day Unknown Rosuvastatin Calcium 20mg Tablets 1 by mouth every day Unknown Citalopram Hydrobromide 20mg Table ts take one tablet by mouth every day 90tabs Annie Gil M.D. Proventil HFA 108(90Base) mcg/Act Aerosol 2 puffs every 4 h as needed cough or wheeze Unkn own Spironolactone 25mg Tablets take one tablet by mouth every morning Unknown Xarelto 20mg Tablets 1 by mouth every day Jonathan Roberson DO Esomeprazole Magnesium 40mg Capsul es DR take 1 tab by mouth once a day 90caps Domonique Claros FNP Immunizations CPT Code Status Date Vaccine Lot # [id number] Given 03/24/2021 Boostrix (Tdap) Tetnus, Diphtheria Toxoids & Acellular Pertussis 44881 Given 10/08/2020 Moderna Sars-(Co vid-19) vaccine, mRNA, LNP-S, PF, 100 mcg/ 0.5 mL 09819 Given 09/10/2020 Moderna Sars-(Co vid-19) vaccine, mRNA, LNP-S, PF, 100 mcg/ 0.5 mL 56050 Given 06/07/2020 Influenza Virus Vaccine, Ronnell drivalent,multidose vial 62537 Given 07/21/2015 Prevnar 13 Vital Signs Date Vital Result Comment 04/02/2021 9:29am BP Systolic 120 mmHg BP Diastolic 55 mmHg Heart Rate 63 /min Body Temperature 97.0 F Respiratory Rate 17 /min Height 71 inches 5'11" Weight 181.00 lb O2 % BldC Oximetry 98 % Peak Expiratory Flow Rate 515 Estimated Peak Flow Rate [place] Body Weight 172 lb BMI (Body Mass Index) 25.2 kg/m2 03/05/2020 8:59am BP Systolic 132 mmHg BP Diastolic 61 mmHg Heart Rate 63 /min Body Temperature 97.2 F Respiratory Rate 16 /min Height 71 inches 5'11" Weight 183.56 lb O2 % dC Oximetry 97 % Peak Expiratory Flow Rate 511 Estimated Peak Flow Rate [place] Body Weight 172 lb BMI (Body Mass Index) 25.6 kg/m2 Results Test Acquired Date Facility Test Result H/L Range Note Ua W/ Reflex To Culture 05/27/2021 [facility] [place], [place] [address] [phone] Appearance, Urine RFX CLEAR Normal Clear Color, Urine RFX STRAW Normal Yellow PH,Urine RFX 5.0 units Normal 5.0-9.0 Specific [place] Ur Auto RFX 1.005 Normal 1.002-1.035 Protein, Urine Auto RFX NEGATIVE mg/dL Normal Negative Glucose, Urine (Ua) Auto RFX NEGATIVE mg/dL Normal Negative Ketone, Urine Auto RFX NEGATIVE mg/dL Normal Negative Urobilinogen, Urine Auto RFX 0.2 mg/dL Normal 0.0-2.0 Bilirubin, Urine Auto RFX NEGATIVE Normal Negative Nitrite, Urine Auto RFX NEGATIVE Normal Negative Leukocyte Esterase Ur Auto RFX NEGATIVE Normal Negative Blood, Urine Blood RFX NEGATIVE Normal Negative WBC, Urine Auto RFX 1 /HPF Normal 0-3 RBC, Urine Auto RFX 1 /HPF Normal 0-3 Bacteria, Urine Auto RFX NEGATIVE Normal Negative Squam Epithelial Cell Ur Aurfx 0 /HPF Normal 0-6 Hyaline Cast, Urine Auto RFX 0 /LPF Normal 0-1 CBC With Differential 05/27/2021 [place] [address] [phone] White Blood Count 5.9 10 Normal 4.0-10.0 Red Blood Count 3.70 10 Low 4.30-6.10 Hemoglobin 9.8 g/dL Low 13.5-17.5 Hematocrit 31.8 % Low 42.0-52.0 Mean Corpuscular Volume 85.9 fl Normal 80.0-96.0 Mean Corpuscular Hemoglobin 26.5 pg Low 27.0-33.0 Mean Corpuscular HGB Conc 30.8 g/dL Low 32.0-36.5 Red Cell Distribution Width 13.8 % Normal 11.5-14.5 Platelet Count, Automated 265 10 Normal 150-450 Neutrophils % 64.6 % Normal 36.0-66.0 Lymph % 19.1 % Low 24.0-44.0 [place] % 10.3 % High 2.0-8.0 Eos % 5.0 % High 0.0-3.0 Baso % 0.7 % Normal 0.0-1.0 Immature Granulocyte % 0.3 % Normal 0-3.0 Nucleated Red Blood Cell % 0.0 % Normal 0-0 Neutrophils # 3.8 10 Normal 1.5-8.5 Lymph # 1.1 10 Low 1.5-5.0 [place] # 0.6 10 Normal 0.0-0.8 Eos # 0.3 10 Normal 0.0-0.5 Baso # 0.0 10 Normal 0.0-0.2 Liver Profile 05/27/2021 [place] [address] [phone] Ast/Sgot 19 U/L Normal 7-37 Alt/SGPT 29 U/L Normal 12-78 Alkaline Phosphatase 87 U/L Normal 45-117 Bilirubin,Total 0.2 mg/dL Normal 0.2-1.0 Bilirubin,Direct < 0.1 mg/dL Normal 0.0-0.2 Total Protein 6.7 GM/DL Normal 6.4-8.2 Albumin 3.7 GM/DL Normal 3.2-5.2 Albumin/Globulin Ratio 1.2 Normal Basic Metabolic Profile 05/27/2021 [place] [address] [phone] Glucose, Fasting 87 mg/dL Normal 70-100 Blood Urea Nitrogen 18 mg/dL Normal 7-18 Creatinine For GFR 0.90 mg/dL Normal 0.70-1.30 Glomerular Filtration Rate > 60.0 Normal >42 1 Sodium Level 143 mEq/L Normal 136-145 Potassium Serum 4.2 mEq/L Normal 3.5-5.1 Chloride Level 110 mEq/L High 98-107 Carbon Dioxide Level 28 mEq/L Normal 21-32 Anion Gap 5 mEq/L Low 8-16 Calcium Level 8.7 mg/dL Low 8.8-10.2 Laboratory test finding 05/27/2021 Patient Service [facility] [place], [place] [address] [phone] Lipase 100 U/L Normal 73-393 Istat Chem8+ Panel 03/24/[address] [facility] [place] [address] [phone] iSTAT HCT 31.0 % Low 38.0-51.0 iSTAT Glucose 72 mg/dL Normal 70-105 iSTAT Sodium 142 mEq/L Normal 136-145 iSTAT Potassium 4.0 mEq/L Normal 3.5-5.1 iSTAT CA++ 4.6 mg/dL Normal 4.5-5.3 iSTAT Chloride 108 mEq/L Normal 98-109 iSTAT Co2 23.0 MM/L Normal 23.0-27.0 iSTAT BUN 23 mg/dL Normal 8-26 iSTAT Creatinine 0.8 mg/dL Normal 0.6-1.3 1 Units are mL/min/1.73 m2 Chronic Kidney Disease Staging per NKF: Stage I & II GFR >=60 Normal to Mildly Decreased Stage III GFR 30-59 Moderately Decreased Stage IV GFR 15-29 Severely Decreased Stage V GFR <15 Very Little GFR Left ESRD GFR <15 on MACHINES TECHNICIAN Procedures Date Code Description Status 04/02/2021 26556 Office/Outpatient Established Mo d MDM 30-39 Min Completed Medical Devices Description No Information Available Encounters Type Date Location Provider Dx Diagnosis Office Visit 04/02/2021 9:30a Main Office Annie Gil M.D. J 44.9 Chronic obstructive pulmonary disease, unspecified Z00.00 Encntr for general adult med ical exam w/o abnormal findings I10 Essential (primary) hyperten jacquelin E78.2 Mixed hyperlipidemia S01.112A Laceration w/o fb of left ey elid and periocular area, init I26.99 Other pulmonary embolism wit hout acute cor pulmonale Assessments Date Code Description Provider 04/02/2021 J44.9 Chronic obstructive pulmonary di sease, unspecified Annie Gil M.D. 04/02/2021 Z00.00 Encounter for genera l adult medical examination without abnormal findings Annie Gil M.D. 04/02/2021 I10 Essential (primary) hypertension Annie Gil M.D. 04/02/2021 E78.2 Mixed hyperlipidemia Donya Gil M.D. 04/02/2021 S01.112A Laceration without f oreign body of left eyelid and periocular area, initial encounter Annie Gil M.D. 04/02/2021 I26.99 Other pulmonary embolism without acute cor pulmonale Annie Gil M.D. Plan of Treatment 04/02/2021 - Annie Gil M.D.* J44.9 Chronic obstructive pulmonary disease, unspecified* Comments:* follows with pulmonary, doing well. stale although breathing is tough in the humidity. * Follow up:* 6 months * Z00.00 Encounter for general adult medical examination without abnormal findings* Comments:* [facility] and he [facility] scheduled next year. * I10 Essential (primary) hypertension * E78.2 Mixed hyperlipidemia* Comments:* above, still need labs. [facility] * S01.112A Laceration without foreign body of left eyelid and periocular area, initial encounter* Comments:* sutures removed. * I26.99 Other pulmonary embolism without acute cor pulmonale Goals 04/02/2021 - Annie Gil M.D.* I10 Essential (primary) hypertension* Stay active and continue meds to maintain good blood pressure readings. Functional Status Functional Condition Comment Date Status Glasses Active Independent with all ADL's Activ e Independent with all IADL's Acti ve Hearing Aid in right ear Active Mental Status Mental Condition Comment Date Status None Active Referrals Description No Information Available
--- OUTSIDE RECORDS SUMMARY | 2021-06-25 16:41 | CCD | Continuity of Care Document ---
Author Author Levy MERCER D.O. Organization [place] [address] Phone [phone] Care Team Providers Care Language Teacher Name Role Phone Diaz Mendez M.D. AUTM [phone] Annie Rashid M.D. AUTM [phone] Problems Active Problems Provider Date Chronic obstructive [...] CPT Code Status Date Vaccine Lot # [id number] Given 05/17/2020 Flublock, Quadrivalent [id number] Given 05/25/2013 Influenza Vaccine 3 Years Of Age Or Older (Flulaval) Vital Signs Date Vital Result Comment 06/19/2021 10:08am BP Systolic 110 mmHg BP Diastolic 74 mmHg Heart Rate 64 /min O2 % BldC Oximetry 99 % Height 69 inches 5'9" Weight 179.00 lb BMI (Body Mass Index) 26.4 kg/m2 [place] Body Weight 160 lb Weight 81.194 kg BSA (Body Surface Area) 1.97 m2 01/01/2021 1:15pm BP Systolic 120 mmHg BP Diastolic 60 mmHg Heart Rate 68 /min O2 % BldC Oximetry 97 % Body Temperature 97.7 F Height 69 inches 5'9" Weight 179.00 lb BMI (Body Mass Index) 26.4 kg/m2 [place] Body Weight 160 lb Weight 81.194 kg BSA (Body Surface Area) 1.97 m2 Results Test Acquired Date Facility Test Result H/L Range Note Laboratory test finding 06/19/2021 [facility] Main Lab [address] [place] [address] [phone] Hemoglobin 9.4 g/dL Low 13.5-17.5 FVL/Chapo 06/19/2021 [employer] PDFReport SEE IMAGE FVC-Pred 3.90 L FVC-Pre 2.38 L FVC-%Pred-Pre 60 L FVC-LLN 3.00 L Fev1-Pred 2.78 L Fev1-Pre 1.43 L Fev1-%Pred-Pre 51 L Fev1-LLN 2.01 L Fev6-Pred 3.64 L Fev6-Pre 2.38 L Fev6-%Pred-Pre 65 L Fev6-LLN 2.76 L Ciu8yit-Hicm 72 % Xnt9ype-Eik 60 % Lmh2dnw-%Pred-Pre 83 % Xvp4vgg-OIN 62 % Uix6jnn-Jkmi 93 % Swt3uhp-Cjz 100 % Imw3wpm-%Pred-Pre 107 % FEFMax-Pred 7.13 L/E/sec FEFMax-Pre 3.96 L/E/sec FEFMax-%Pred-Pre 55 L/E/sec FEFMax-LLN 4.88 L/E/sec Mgt9293-Vlsu 1.93 L/E/sec Rbp6142-Rtw 0.73 L/E/sec Stk8663-%Pred-Pre 37 L/E/sec Bai5198-JLW 0.38 L/E/sec ExpTime-Pre 6.87 sec Cfk4mtt9-Epci 76 % Wbr3ona1-Ctz 60 % Wux8huk9-%Pred-Pre 78 % Jtw7img5-PAR 67 % Laboratory test finding 05/30/2021 [facility] Main Lab [address] [place] [address] [phone] Hemoglobin 9.5 g/dL Low 13.5-17.5 Laboratory test finding 04/19/2021 [facility] Main Lab [address] [place], [place] [address] [phone] Hemoglobin 10.2 g/dL Low 13.5-17.5 Laboratory test finding 02/28/2021 [facility] Main Lab [address] [place] [address] [phone] Hemoglobin 10.4 g/dL Low 13.5-17.5 Hemoglobin A1c 01/30/2021 [facility] Main Lab [address] [place] [address] [phone] Hemoglobin A1c 6.0 % Normal 1 Estimated Average Glucose 126 mg/dL High 60-110 BUN & Creatinine ([facility]) 01/01/2021 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 I27.82 Chronic pulmonary [...]
--- OUTSIDE RECORDS SUMMARY | 2021-06-25 16:41 | CCD | Continuity of Care Document ---
Author Author Levy GUSMAN P.A. Organization Unknown Address [address] [facility] [address] [place] [address] Phone [phone] Care Team Providers Care Hack Saw Operator Name Role Phone Diaz Mendez M.D. AUTM [phone] Annie Rashid M.D. AUTM [phone] Problems Active Problems Provider Date Chronic obstructive lung disease Jonathan Roberson D.O. Onset: 05/15/2015 Acute exacerbation of chronic obstructive airways disease Ro alison Roberson D.O. Onset: 08/30/2014 Full respiratory system examination Jonathan Roberson D.O. 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 Onset: 01/20/2014 Ex-smoker Jonathan Roberson D.O. Onset: 01/20/2014 Bronchiolectasis Jonathan Roberson D.O. Onset: 09/09/2017 Wheezing Jonathan Roberson D.O. Onset: 06/11/2020 Social History Type Date [...] by mouth daily Dx: Pulmonary embolism 30tabs Jonathan Roberson D.O. 12/18/2020 Symbicort 160-4.5mcg/Act Aerosol Inhale Two Puffs By Mouth Twice A Day 10.2units Jonathan Roberson D.O. 01/20/2014 Ropinirole HCL 0.5mg Tablets 2 tabs by mouth at bedtime Unknown Aspir-[address] 1 po qd Unknown Spiriva Handihaler 18mcg Capsules 1 cap inhalation every in the morning 30caps Andrew CarrasquilloO. Albuterol Sulfate (2 .5mg/3ML) 0.083% Nebulizer 1 vial via neb four times a day, as needed dx:j44.9 360units J44.9 Jonathan Roberson D.O. Proventil HFA 108(90Base) mcg/Act Aerosol 2 puffs four times a day as needed 3units Parminder Carrasquillo Multivitamin Adult Tablets 1 by mouth every day Unknown Citalopram Hydrobromide 20mg Table ts 1 by mouth every day Unknown Immunizations CPT Code Status Date Vaccine Lot # [id number] Given 05/17/2020 Flublock, Quadrivalent [id number] Given 05/25/2013 Influenza Vaccine 3 Years Of Age Or Older (Flulaval) Vital Signs Date Vital Result Comment 06/19/2021 10:08am BP Systolic 110 mmHg BP Diastolic 74 mmHg Heart Rate 64 /min O2 % BldC Oximetry 99 % Height 69 inches 5'9" Weight 179.00 lb BMI (Body Mass Index) 26.4 kg/m2 [place] Body Weight 160 lb Weight 81.194 kg BSA (Body Surface Area) 1.97 m2 01/01/2021 1:15pm BP Systolic 120 mmHg BP Diastolic 60 mmHg Heart Rate 68 /min O2 % BldC Oximetry 97 % Body Temperature 97.7 F Height 69 inches 5'9" Weight 179.00 lb BMI (Body Mass Index) 26.4 kg/m2 [place] Body Weight 160 lb Weight 81.194 kg BSA (Body Surface Area) 1.97 m2 Results Test Acquired Date Facility Test Result H/L Range Note Laboratory test finding 06/19/2021 [facility] Main Lab [address] [place] [address] [phone] Hemoglobin 9.4 g/dL Low 13.5-17.5 FVL/[place] 06/19/2021 [employer] PDFReport SEE IMAGE FVC-Pred 3.90 L FVC-Pre 2.38 L FVC-%Pred-Pre 60 L FVC-LLN 3.00 L Fev1-Pred 2.78 L Fev1-Pre 1.43 L Fev1-%Pred-Pre 51 L Fev1-LLN 2.01 L Fev6-Pred 3.64 L Fev6-Pre 2.38 L Fev6-%Pred-Pre 65 L Fev6-LLN 2.76 L Ecs7hdu-Suti 72 % Hvh6bjd-Mvl 60 % Npm5pzd-%Pred-Pre 83 % Otz8lgr-ITS 62 % Dbf7htt-Krqt 93 % Lfu5any-Cos 100 % Yek0izx-%Pred-Pre 107 % FEFMax-Pred 7.13 L/E/sec FEFMax-Pre 3.96 L/E/sec FEFMax-%Pred-Pre 55 L/E/sec FEFMax-LLN 4.88 L/E/sec Xlg3822-Pvly 1.93 L/E/sec Plq8441-Def 0.73 L/E/sec Puf3443-%Pred-Pre 37 L/E/sec Bos7069-NVN 0.38 L/E/sec ExpTime-Pre 6.87 sec Zeb6zez8-Hlyv 76 % Xsb4ofv3-Mso 60 % Lhq7aym3-%Pred-Pre 78 % Vpc6otj4-ESR 67 % Laboratory test finding 05/30/2021 [facility] Main Lab [address] [place] [address] [phone] Hemoglobin 9.5 g/dL Low 13.5-17.5 Laboratory test finding 04/19/2021 [facility] Main Lab [address] [place] [address] [phone] Hemoglobin 10.2 g/dL Low 13.5-17.5 Laboratory test finding 02/28/2021 [facility] Main Lab [address] [place], [place] [id number] [phone] Hemoglobin 10.4 g/dL Low 13.5-17.5 Hemoglobin A1c 01/30/2021 [facility] Main Lab [address] [place] [address] [phone] Hemoglobin A1c 6.0 % Normal 1 Estimated Average Glucose 126 mg/dL High 60-110 BUN & Creatinine ([facility]) 01/01/2021 [facility] Main Lab [address] [place] [address] [phone] Blood Urea Nitrogen 19 mg/dL High 7-18 Creatinine With GFR 01/01/2021 [facility] Main Lab [address] [place] [address] [phone] Creatinine For GFR 0.92 mg/dL Normal 0.70-1.30 Glomerular Filtration Rate > 60.0 Normal >42 2 Complete Blood Count 01/01/2021 [facility] enter Main Lab [address] [place] [address] [phone] White Blood Count 4.9 10 Normal 4.0-10.0 [...] Little GFR Left ESRD GFR <15 on COLLEGE ADMINISTRATOR Procedures Date Code Description Status 01/01/2021 96240 Office/Outpatient Established Mo d MDM 30-39 Min Completed Medical Devices Description No Information Available Encounters Type Date Location Provider Dx Diagnosis Office Visit 01/01/2021 1:30p [facility] Jonathan Hudson ars, D.O. I27.82 Chronic pulmonary embolism J44.9 [...] D.O. Plan of Treatment 06/19/2021 - Jonathan Roberson, D.O.* R06.02 Dyspnea * I27.82 Chronic pulmonary embolism * J44.9 Chronic obstructive pulmonary disease, unspecified * Z87.891 Personal history of nicotine dependence * D64.9 Anemia * * Follow up:* Follow up in one month with augustine, will call with results of CXR and hemoglobin Functional Status Functional Condition Comment Date Status Independent with all ADL's Activ e Independent with all IADL's Acti ve Mental Status Mental Condition Comment Date Status Cognitive ability not impaired A ctive Referrals Description No Information Available
--- OUTSIDE RECORDS SUMMARY | 2021-06-25 16:41 | CCD | Continuity of Care Document ---
Author Author Levy GUSMAN P.A. Organization Unknown Address [address] [facility] [address] [place] [address] Phone [phone] Care Team Providers Care Transformer Coil Winder Name Role Phone Diaz Mendez M.D. AUTM [phone] Annie Rashid M.D. AUTM [phone] Problems Active Problems Provider Date Chronic obstructive [...] CPT Code Status Date Vaccine Lot # [id number] Given 05/17/2020 Flublock, Quadrivalent [id number] Given 05/25/2013 Influenza Vaccine 3 Years Of Age Or Older (Flulaval) Vital Signs Date Vital Result Comment 06/19/2021 10:08am BP Systolic 110 mmHg BP Diastolic 74 mmHg Heart Rate 64 /min O2 % BldC Oximetry 99 % Height 69 inches 5'9" Weight 179.00 lb BMI (Body Mass Index) 26.4 kg/m2 [place] Body Weight 160 lb Weight 81.194 kg BSA (Body Surface Area) 1.97 m2 01/01/2021 1:15pm BP Systolic 120 mmHg BP Diastolic 60 mmHg Heart Rate 68 /min O2 % BldC Oximetry 97 % Body Temperature 97.7 F Height 69 inches 5'9" Weight 179.00 lb BMI (Body Mass Index) 26.4 kg/m2 [place] Body Weight 160 lb Weight 81.194 kg BSA (Body Surface Area) 1.97 m2 Results Test Acquired Date Facility Test Result H/L Range Note Laboratory test finding 06/19/2021 [facility] Main Lab [address] [place] [address] [phone] Hemoglobin 9.4 g/dL Low 13.5-17.5 FVL/[place] 06/19/2021 [employer] PDFReport SEE IMAGE FVC-Pred 3.90 L FVC-Pre 2.38 L FVC-%Pred-Pre 60 L FVC-LLN 3.00 L Fev1-Pred 2.78 L Fev1-Pre 1.43 L Fev1-%Pred-Pre 51 L Fev1-LLN 2.01 L Fev6-Pred 3.64 L Fev6-Pre 2.38 L Fev6-%Pred-Pre 65 L Fev6-LLN 2.76 L Iig6vzc-Ugsh 72 % Sgy4qio-Znb 60 % Ora4beq-%Pred-Pre 83 % Cra0lvv-TIY 62 % Bfv2atv-Wdpi 93 % Kcs3fmy-Ohs 100 % Jiz6rqy-%Pred-Pre 107 % FEFMax-Pred 7.13 L/E/sec FEFMax-Pre 3.96 L/E/sec FEFMax-%Pred-Pre 55 L/E/sec FEFMax-LLN 4.88 L/E/sec Gdc2368-Hzge 1.93 L/E/sec Kcp9534-Fkh 0.73 L/E/sec Bmp1218-%Pred-Pre 37 L/E/sec Khi0336-GPX 0.38 L/E/sec ExpTime-Pre 6.87 sec Wwb2zsb3-Acpy 76 % Scl5eih6-Dfs 60 % Qyw2ggp4-%Pred-Pre 78 % Niz5sqb4-OLY 67 % Laboratory test finding 05/30/2021 [facility] Main Lab [address] [place] [address] [phone] Hemoglobin 9.5 g/dL Low 13.5-17.5 Laboratory test finding 04/19/2021 [facility] Main Lab [address] [place] [address] [phone] Hemoglobin 10.2 g/dL Low 13.5-17.5 Laboratory test finding 02/28/2021 [facility] Main Lab [address] [place], [place] [address] [phone] Hemoglobin 10.4 g/dL Low 13.5-17.5 Hemoglobin A1c 01/30/2021 [facility] Main Lab [address] [place] [address] [phone] Hemoglobin A1c 6.0 % Normal 1 Estimated Average Glucose 126 mg/dL High 60-110 BUN & Creatinine ([facility]) 01/01/2021 [facility] Main Lab [address] [place] [address] [phone] Blood Urea Nitrogen 19 mg/dL High 7-18 Creatinine With GFR 01/01/2021 [facility] Main Lab [address] [place] [address] [phone] Creatinine For GFR 0.92 mg/dL Normal 0.70-1.30 Glomerular Filtration Rate > 60.0 Normal >42 2 Complete Blood Count 01/01/2021 [facility] enter Main Lab [address] [place] [address] [phone] White Blood Count 4.9 10 Normal 4.0-10.0 [...] Little GFR Left ESRD GFR <15 on GLUER MACHINE OPERATOR Procedures Date Code Description Status 01/01/2021 87670 Office/Outpatient Established Mo d MDM 30-39 Min Completed Medical Devices Description No Information Available Encounters Type Date Location Provider Dx Diagnosis Office Visit 01/01/2021 1:30p [facility] Jonathan Hudson ars, D.O. I27.82 Chronic [...]
--- OUTSIDE RECORDS SUMMARY | 2021-06-25 16:41 | CCD | Continuity of Care Document ---
Author Author Levy GUSMAN PA Organization Unknown Address [address] [facility] [address] [place] [address] Phone [phone] Care Team Providers Care Microphone Boom Operator Name Role Phone Diaz Mendez M.D. AUTM [phone] Annie Rashid M.D. AUTM [phone] Problems Active Problems Provider Date Chronic obstructive [...] Use Denies Drug Use Smoking Status Reviewed: 01/01/21 Patient is a former smoker hx : 2ppd x 30 yrs, quit 1988 Allergies, Adverse Reactions, Alerts Active Allergies Criticality [...] times a day, as needed dx:j44.9 360units Soraida44.9 Jonathan Roberson D.O. Proventil HFA 108(90Base) mcg/Act Aerosol 2 puffs four times a day as needed 3units Parminder Carrasquillo Multivitamin Adult Tablets 1 by mouth every day Unknown Citalopram Hydrobromide 20mg Table ts 1 by mouth every day Unknown History Medications Xarelto Starter Pack 15&20mg TBPK one 15mg tab by mouth twice a day for 21days then one 20 mg tab by mouth daily Dx: Pulmonary embolism 51units Andrew CarrasquilloO. 11/15/2020 - 12/18/2020 Immunizations CPT Code Status Date Vaccine Lot # [id number] Given 05/17/2020 Flublock, Quadrivalent Q2036 Given 05/25/2013 Influenza Vaccine 3 Years Of Age Or Older (Flulaval) Vital Signs Date Vital Result Comment 01/01/2021 1:15pm BP Systolic 120 mmHg BP Diastolic 60 mmHg Heart Rate 68 /min O2 % BldC Oximetry 97 % Body Temperature 97.7 F Height 69 inches 5'9" Weight 179.00 lb BMI (Body Mass Index) 26.4 kg/m2 [place] Body Weight 160 lb Weight 81.194 kg BSA (Body Surface Area) 1.97 m2 11/15/2020 11:30am BP Systolic 120 mmHg BP Diastolic 82 mmHg Heart Rate 60 /min O2 % BldC Oximetry 98 % Body Temperature 96.0 F Height 69 inches 5'9" Weight 182.00 lb BMI (Body Mass Index) 26.9 kg/m2 [place] Body Weight 160 lb Weight 82.555 kg BSA (Body Surface Area) 1.98 m2 Results Test Acquired Date Facility Test Result H/L Range Note Laboratory test finding 04/19/2021 [facility] Main Lab [address] [place] [address] [phone] Hemoglobin 10.2 g/dL Low 13.5-17.5 Laboratory test finding 02/28/2021 [facility] Main Lab [address] [place], [place] [address] [phone] Hemoglobin 10.4 g/dL Low 13.5-17.5 Hemoglobin A1c 01/30/2021 [facility] Main Lab [address] [place] [address] [phone] Hemoglobin A1c 6.0 % Normal 1 Estimated Average Glucose 126 mg/dL High 60-110 BUN & Creatinine ([facility]) 01/01/2021 [facility] Main Lab [address] [place] [id number] [phone] Blood Urea Nitrogen 19 mg/dL High 7-18 Creatinine With GFR 01/01/2021 [facility] Lab [address] [place] [id number] [phone] Creatinine For GFR 0.92 mg/dL Normal 0.70-1.30 Glomerular Filtration Rate > 60.0 Normal >42 2 Complete Blood Count 01/01/2021 [facility] Main Lab [address] [place] [id number] [phone] White Blood Count 4.9 10 Normal 4.0-10.0 [...] Blood Cell % 0.0 % Normal 0-0 BUN & Creatinine ([facility]) 11/15/2020 [facility] Main Lab [address] [place], [place] [address] [phone] Blood Urea Nitrogen 29 mg/dL High 7-18 Creatinine With GFR 11/15/2020 [facility] Main Lab [address] [place] [address] [phone] Creatinine For GFR 0.83 mg/dL Normal 0.70-1.30 Glomerular Filtration Rate > 60.0 Normal >42 3 FVL/[place] 11/15/2020 [employer] PDFReport SEE IMAGE FVC-Pred 3.95 L FVC-Pre 2.91 L FVC-%Pred-Pre 73 L FVC-LLN 3.04 L Fev1-Pred 2.82 L Fev1-Pre 1.91 L Fev1-%Pred-Pre 67 L Fev1-LLN 2.05 L Fev6-Pred 3.68 L Fev6-Pre 2.91 L Fev6-%Pred-Pre 79 L Fev6-LLN 2.80 L Kyl9luy-Hdud 72 % Nkx6pry-Wsi 66 % Lzd8dbp-%Pred-Pre 91 % Lzo3uoe-LRS 62 % Unb9iuz-[place] 93 % Wgm3cqw-Rkc 100 % Xkb5gjl-%Pred-Pre 107 % FEFMax-Pred 7.26 L/E/sec FEFMax-Pre 3.92 L/E/sec FEFMax-%Pred-Pre 54 L/E/sec FEFMax-LLN 5.00 L/E/sec Umo7726-Cxpg 1.98 L/E/sec Jtz3870-Gvp 1.10 L/E/sec Qzm1267-%Pred-Pre 55 L/E/sec Kht2080-SYV 0.43 L/E/sec ExpTime-Pre 5.83 sec Grv6kur7-Isgh 77 % Bvr4mpl3-Syo 66 % Sgh4fhz0-%Pred-Pre 85 % Yhy0ldu2-XCB 68 % 1 REFERENCE RANGES: <=5.6% NORMAL 5.7-6.4% SUGGESTS IMPAIRED GLUCOSE META BOLISM/PREDIABETIC >= 6.5% ABNORMAL 2 Units are mL/min/1.73 m2 Chronic Kidney Disease Staging per NKF: Stage I & II GFR >=60 Normal to Mildly Decreased Stage III GFR 30-59 Moderately Decreased Stage IV GFR 15-29 Severely Decreased Stage V GFR <15 Very Little GFR Left ESRD GFR <15 on LOCKS INSPECTOR 3 Units are mL/min/1.73 m2 Chronic Kidney Disease Staging per NKF: Stage I & II GFR >=60 Normal to Mildly Decreased Stage III GFR 30-59 Moderately Decreased Stage IV GFR 15-29 Severely Decreased Stage V GFR <15 Very Little GFR Left ESRD GFR <15 on LOCKS INSPECTOR Procedures Date Code Description Status 01/01/2021 92858 Office/Outpatient Established Mo d MDM 30-39 Min Completed 11/15/2020 89142 Office/Outpatient Established Mo d MDM 30-39 Min Completed 11/15/2020 96122 Spirometry Completed Medical Devices Description No Information Available Encounters Type Date Location Provider Dx Diagnosis Office Visit 01/01/2021 1:30p [facility] Jonathan olivares D.O. I27.82 Chronic pulmonary embolism J44.9 Chronic obstructive pulmonar y disease, unspecified Z87.891 Personal history of nicotine dependence Office Visit 11/15/2020 11:30a [facility] Jonathan olivares D.O. R06.00 Dyspnea, unspecified J44.9 Chronic obstructive pulmonar y disease, unspecified Z87.891 Personal history of nicotine dependence Assessments Date Code Description Provider 01/01/2021 I27.82 Chronic pulmonary embolism Jonathan Roberson, D.O. 01/01/2021 J44.9 Chronic obstructive pulmonary di sease, unspecified Jonathan Sears, D.O. 01/01/2021 Z87.891 Personal history of nicotine dep endence Jonathan Sears, D.O. 11/15/2020 R06.00 Dyspnea, unspecified Jonathan Sears, D.O. 11/15/2020 J44.9 Chronic obstructive pulmonary di sease, unspecified Jonathan Sears, D.O. 11/15/2020 Z87.891 Personal history of nicotine dep endence Jonathan Sears, D.O. Plan of Treatment Future Appointment(s):* 07/04/2021 8:30 am - Andrew CarrasquilloOJamil at [facility] 01/01/2021 - Jonathan Roberson D.O.* I27.82 Chronic pulmonary embolism * J44.9 Chronic obstructive pulmonary disease, unspecified * Z87.891 Personal history of nicotine dependence * * New Labs:* FVL/[place], Scheduled: 07/04/21 * Follow up:* Follow up in six months with spirometry. Functional Status Functional Condition Comment Date Status Independent with all ADL's Activ e Independent with all IADL's Acti ve Mental Status Mental Condition Comment Date Status Cognitive ability not impaired A ctive Referrals Refer to Reason for Referral Status Appt Date Radiology/Procedure 07208 Closed 11/15/2020 Radiology/Procedure 77955 Closed
--- OUTSIDE RECORDS SUMMARY | 2021-06-25 16:41 | CCD | Continuity of Care Document ---
Author Author Levy IGL M.D. Organization Unknown Address [address] [place] [address] Phone [phone] Care Team Providers Care Copy Machine Operator Name Role Phone [employer] AUTM [phone] Jonathan Roberson DO AUTM [phone] Problems Active Problems Provider Date Chronic obstructive [...] Yes Allergies, Adverse Reactions, Alerts Active Allergies Reaction Severity Comments Date Bactrim 03/05/2020 Timolol Palpitations 04/02/2021 Medications Active Medications SIG Qnty [...] one tablet by mouth every day 90tabs Domonique Claros, Mikhail BUSINESS MANAGEMENT CONSULTANT Proventil HFA 108(90Base) mcg/Act Aerosol 2 puffs every 4 h as needed cough or wheeze Unkn own Spironolactone 25mg Tablets take one tablet by mouth every morning Unknown Xarelto 20mg Tablets 1 by mouth every day Jonathan Roberson DO Esomeprazole Magnesium 40mg Capsul es DR take 1 tab by mouth once a day Unknown 0 Immunizations CPT Code Status Date Vaccine Lot # [id number] Given 03/24/2021 Boostrix (Tdap) Tetnus, Diphtheria Toxoids & Acellular Pertussis 55515 Given 10/08/2020 Moderna Sars-(Co vid-19) vaccine, mRNA, LNP-S, PF, 100 mcg/ 0.5 mL 62851 Given 09/10/2020 Moderna Sars-(Co vid-19) vaccine, mRNA, LNP-S, PF, 100 mcg/ 0.5 mL 97611 Given 06/07/2020 Influenza Virus Vaccine, Quadrivalent,age 3 and up,multidose vial 74127 Given 07/21/2015 Prevnar 13 Vital Signs Date Vital Result Comment 04/02/2021 9:29am BP Systolic 120 mmHg BP Diastolic 55 mmHg Heart Rate 63 /min Body Temperature 97.0 F Respiratory Rate 17 /min Height 71 inches 5'11" Weight 181.00 lb O2 % BldC Oximetry 98 % Peak Expiratory Flow Rate 515 Estimated Peak Flow Rate [place] Body Weight 172 lb BMI (Body Mass Index) 25.2 kg/m2 03/05/2020 8:59am BP Systolic 132 mmHg BP Diastolic 61 mmHg Heart Rate 63 /min Body Temperature 97.2 F Respiratory Rate 16 /min Height 71 inches 5'11" Weight 183.56 lb O2 % BldC Oximetry 97 % Peak Expiratory Flow Rate 511 Estimated Peak Flow Rate [place] Body Weight 172 lb BMI (Body Mass Index) 25.6 kg/m2 Results Test Acquired Date Facility Test Result H/L Range Note Istat Chem8+ Panel 03/24/20[facility] RADIOLOGY [place], [place] [id number] [phone] iSTAT HCT 31.0 % Low 38.0-51.0 iSTAT Glucose 72 mg/dL Normal 70-105 iSTAT Sodium 142 mEq/L Normal 136-145 iSTAT Potassium 4.0 mEq/L Normal 3.5-5.1 iSTAT CA++ 4.6 mg/dL Normal 4.5-5.3 iSTAT Chloride 108 mEq/L Normal 98-109 iSTAT Co2 23.0 MM/L Normal 23.0-27.0 iSTAT BUN 23 mg/dL Normal 8-26 iSTAT Creatinine 0.8 mg/dL Normal 0.6-1.3 Procedures Date Code Description Status 04/02/2021 40803 Office/Outpatient Established Mo d MDM 30-39 Min [...]
--- OUTSIDE RECORDS SUMMARY | 2021-06-25 16:41 | CCD | Continuity of Care Document ---
Author Author Levy GUSMAN PA Organization Unknown Address [address] [facility] [address] [place] [address] Phone [phone] Care Team Providers Care Retail Greeting Card Merchandiser Name Role Phone Diaz Mendez M.D. AUTM [phone] Annie Rashid M.D. AUTM [phone] Problems Active Problems Provider Date Chronic obstructive [...] CPT Code Status Date Vaccine Lot # [id number] Given 05/17/2020 Flublock, Quadrivalent [id number] Given 05/25/2013 Influenza Vaccine 3 Years Of Age Or Older (Flulaval) Vital Signs Date Vital Result Comment 01/01/2021 1:15pm BP Systolic 120 mmHg BP Diastolic 60 mmHg Heart Rate 68 /min O2 % BldC Oximetry 97 % Body Temperature 97.7 F Height 69 inches 5'9" Weight 179.00 lb BMI (Body Mass Index) 26.4 kg/m2 [place] Body Weight 160 lb Weight 81.194 kg BSA (Body Surface Area) 1.97 m2 11/15/2020 11:30am BP Systolic 120 mmHg BP Diastolic 82 mmHg Heart Rate 60 /min O2 % BldC Oximetry 98 % Body Temperature 96.0 F Height 69 inches 5'9" Weight 182.00 lb BMI (Body Mass Index) 26.9 kg/m2 [place] Body Weight 160 lb Weight 82.555 kg BSA (Body Surface Area) 1.98 m2 Results Test Acquired Date Facility Test Result H/L Range Note Laboratory test finding 04/19/2021 [facility] Main Lab [address] [place] [address] [phone] Hemoglobin 10.2 g/dL Low 13.5-17.5 Laboratory test finding 02/28/2021 [facility] Main Lab [address] [place], [place] [id number] [phone] Hemoglobin 10.4 g/dL Low 13.5-17.5 Hemoglobin A1c 01/30/2021 [facility] Main Lab [address] [place] [address] [phone] Hemoglobin A1c 6.0 % Normal 1 Estimated Average Glucose 126 mg/dL High 60-110 BUN & Creatinine ([facility]) 01/01/2021 [facility] Main Lab [address] [place] [address] [id number] [phone] Blood Urea Nitrogen 19 mg/dL High 7-18 Creatinine With GFR 01/01/2021 [facility] Lab [address] [place] [address] [id number] [phone] Creatinine For GFR 0.92 mg/dL Normal 0.70-1.30 Glomerular Filtration Rate > 60.0 Normal >42 2 Complete Blood Count 01/01/2021 [facility] Main Lab [address] [place] [address] [id number] [phone] White Blood Count 4.9 10 Normal 4.0-10.0 [...] 0.0 % Normal 0-0 BUN & Creatinine ([facility]) 11/15/2020 [facility] Main Lab [address] [place], [place] [id number] [phone] Blood Urea Nitrogen 29 mg/dL High 7-18 Creatinine With GFR 11/15/2020 [facility] Main Lab [address] [place] [address] [phone] Creatinine For GFR 0.83 mg/dL Normal 0.70-1.30 Glomerular Filtration Rate > 60.0 Normal >42 3 FVL/Chapo 11/15/2020 [employer] PDFReport SEE IMAGE FVC-Pred 3.95 L FVC-Pre 2.91 L FVC-%Pred-Pre 73 L FVC-LLN 3.04 L Fev1-Pred 2.82 L Fev1-Pre 1.91 L Fev1-%Pred-Pre 67 L Fev1-LLN 2.05 L Fev6-Pred 3.68 L Fev6-Pre 2.91 L Fev6-%Pred-Pre 79 L Fev6-LLN 2.80 L Fdv2jll-Xrea 72 % Rwg0dea-Nqk 66 % Onb3giw-%Pred-Pre 91 % Rtu2wus-LGY 62 % Ypn8inq-Cgvx 93 % Ful9msh-Ssw 100 % Roi9ele-%Pred-Pre 107 % FEFMax-Pred 7.26 L/E/sec FEFMax-Pre 3.92 L/E/sec FEFMax-%Pred-Pre 54 L/E/sec FEFMax-LLN 5.00 L/E/sec Gpd9113-Qzka 1.98 L/E/sec Ste8573-Qgs 1.10 L/E/sec Jsn5060-%Pred-Pre 55 L/E/sec Bdq4318-VTW 0.43 L/E/sec ExpTime-Pre 5.83 sec Kmq9gyj6-Ulte 77 % Zpm7job5-Dtp 66 % Gcq6kba0-%Pred-Pre 85 % Ytz7gpi5-XTS 68 % 1 REFERENCE RANGES: <=5.6% NORMAL 5.7-6.4% SUGGESTS IMPAIRED GLUCOSE META BOLISM/PREDIABETIC >= 6.5% ABNORMAL 2 Units are mL/min/1.73 m2 Chronic Kidney Disease Staging per NKF: Stage I & II GFR >=60 Normal to Mildly Decreased Stage III GFR 30-59 Moderately Decreased Stage IV GFR 15-29 Severely Decreased Stage V GFR <15 Very Little GFR Left ESRD GFR <15 on PHYTOPATHOLOGIST 3 Units are mL/min/1.73 m2 Chronic Kidney Disease Staging per NKF: Stage I & II GFR >=60 Normal to Mildly Decreased Stage III GFR 30-59 Moderately Decreased Stage IV GFR 15-29 Severely Decreased Stage V GFR <15 Very Little GFR Left ESRD GFR <15 on PHYTOPATHOLOGIST Procedures Date Code Description Status 01/01/2021 79466 Office/Outpatient Established Mo d MDM 30-39 Min Completed 11/15/2020 07840 Office/Outpatient Established Mo d MDM 30-39 Min Completed 11/15/2020 28275 Spirometry Completed Medical Devices Description No Information Available Encounters Type Date Location Provider Dx Diagnosis Office Visit 01/01/2021 1:30p [facility] Jonathan olivares D.O. I27.82 Chronic pulmonary embolism J44.9 Chronic obstructive pulmonar y disease, unspecified Z87.891 Personal history of nicotine dependence Office Visit 11/15/2020 11:30a [facility] Jonathan olivares D.O. R06.00 Dyspnea, unspecified [...] 07/04/2021 8:30 am - Andrew CarrasquilloOJamil at [facility] 01/01/2021 - Jonathan Roberson D.O.* I27.82 Chronic pulmonary embolism * J44.9 Chronic obstructive pulmonary disease, unspecified * Z87.891 Personal history of nicotine dependence * * New Labs:* FVL/Erin, Scheduled: 07/04/21 * Follow up:* Follow up in six months with spirometry. Functional Status Functional Condition Comment Date Status Independent with all ADL's Activ e Independent with all IADL's Acti ve Mental Status Mental Condition Comment Date Status Cognitive ability not impaired A ctive Referrals Refer to Reason for Referral Status Appt Date Radiology/Procedure 80353 Closed 11/15/2020 Radiology/Procedure 18375 Closed
--- OUTSIDE RECORDS SUMMARY | 2021-06-25 16:41 | CCD | Continuity of Care Document ---
Author Author Levy MERCER D.O. Organization [place] [address] Phone [phone] Care Team Providers Care Treatment Coordinator Name Role Phone Diza Mendez M.D. AUTM [phone] Annie Rashid M.D. AUTM [phone] Problems Active Problems Provider Date Chronic obstructive [...] Puffs By Mouth Twice A Day 10.2units Jnoathan Mercer D.O. 01/20/2014 Ropinirole HCL 0.5mg Tablets [...] CPT Code Status Date Vaccine Lot # [id number] Given 05/17/2020 Flublock, Quadrivalent [id number] Given 05/25/2013 Influenza Vaccine 3 Years Of Age Or Older (Flulaval) Vital Signs Date Vital Result Comment 06/19/2021 10:08am BP Systolic 110 mmHg BP Diastolic 74 mmHg Heart Rate 64 /min O2 % BldC Oximetry 99 % Height 69 inches 5'9" Weight 179.00 lb BMI (Body Mass Index) 26.4 kg/m2 [place] Body Weight 160 lb Weight 81.194 kg BSA (Body Surface Area) 1.97 m2 01/01/2021 1:15pm BP Systolic 120 mmHg BP Diastolic 60 mmHg Heart Rate 68 /min O2 % BldC Oximetry 97 % Body Temperature 97.7 F Height 69 inches 5'9" Weight 179.00 lb BMI (Body Mass Index) 26.4 kg/m2 [place] Body Weight 160 lb Weight 81.194 kg BSA (Body Surface Area) 1.97 m2 Results Test Acquired Date Facility Test Result H/L Range Note Laboratory test finding 06/19/2021 [facility] Main Lab [address] [place] [address] [phone] Hemoglobin 9.4 g/dL Low 13.5-17.5 FVL/Chapo 06/19/2021 [employer] PDFReport SEE IMAGE FVC-Pred 3.90 L FVC-Pre 2.38 L FVC-%Pred-Pre 60 L FVC-LLN 3.00 L Fev1-Pred 2.78 L Fev1-Pre 1.43 L Fev1-%Pred-Pre 51 L Fev1-LLN 2.01 L Fev6-Pred 3.64 L Fev6-Pre 2.38 L Fev6-%Pred-Pre 65 L Fev6-LLN 2.76 L Ejn7hng-Sdwo 72 % Uqf5ulc-Tnt 60 % Ils5ext-%Pred-Pre 83 % Uwn9vhq-KOV 62 % Pke7jjm-Xfbc 93 % Xfa7lkw-Edr 100 % Nzn7tae-%Pred-Pre 107 % FEFMax-Pred 7.13 L/E/sec FEFMax-Pre 3.96 L/E/sec FEFMax-%Pred-Pre 55 L/E/sec FEFMax-LLN 4.88 L/E/sec Zoj0656-Xsss 1.93 L/E/sec Qre8953-Lqy 0.73 L/E/sec Jci9194-%Pred-Pre 37 L/E/sec Tun9436-BAV 0.38 L/E/sec ExpTime-Pre 6.87 sec Azo8kis1-Qjqy 76 % Nki6ihi7-Jqy 60 % Sns6fqm9-%Pred-Pre 78 % Mpg2rqi7-NLI 67 % Laboratory test finding 05/30/2021 [facility] Main Lab [address] [place] [address] [phone] Hemoglobin 9.5 g/dL Low 13.5-17.5 Laboratory test finding 04/19/2021 [facility] Main Lab [address] [place], [place] [address]48 [phone] Hemoglobin 10.2 g/dL Low 13.5-17.5 Laboratory test finding 02/28/2021 [facility] Main Lab [address] [place] [address] [phone] Hemoglobin 10.4 g/dL Low 13.5-17.5 Hemoglobin A1c 01/30/2021 [facility] Main Lab [address] [place] [address] [phone] Hemoglobin A1c 6.0 % Normal 1 Estimated Average Glucose 126 mg/dL High 60-110 BUN & Creatinine ([facility]) 01/01/2021 [facility] Main Lab [address] [place] [address] [phone] Blood Urea Nitrogen 19 mg/dL High 7-18 Creatinine With GFR 01/01/2021 [facility] Main Lab [address] [place] [address] [phone] Creatinine For GFR 0.92 mg/dL Normal 0.70-1.30 Glomerular Filtration Rate > 60.0 Normal >42 2 Complete Blood Count 01/01/2021 [facility] enter Main Lab [address] [place] [address] [phone] White Blood Count 4.9 10 Normal 4.0-10.0 [...] Little GFR Left ESRD GFR <15 on BID ANALYST Procedures Date Code Description Status 01/01/2021 24881 Office/Outpatient Established Mo d MDM 30-39 Min Completed Medical Devices Description No Information Available Encounters Type Date Location Provider Dx Diagnosis Office Visit 01/01/2021 1:30p [facility] Jonathan ars, D.O. I27.82 Chronic pulmonary [...]
--- OUTSIDE RECORDS SUMMARY | 2021-06-25 16:41 | CCD | Continuity of Care Document ---
Author Author Levy MERCER D.O. [place] [address] Phone [phone] Care Team Providers Care A&P Technician Name Role Phone Diaz Mendez M.D. AUTM [phone] Annie Rashid M.D. AUTM [phone] Problems Active Problems Provider Date Chronic obstructive [...] CPT Code Status Date Vaccine Lot # [id number] Given 05/17/2020 Flublock, Quadrivalent [id number] Given 05/25/2013 Influenza Vaccine 3 Years Of Age Or Older (Flulaval) Vital Signs Date Vital Result Comment 06/19/2021 10:08am BP Systolic 110 mmHg BP Diastolic 74 mmHg Heart Rate 64 /min O2 % BldC Oximetry 99 % Height 69 inches 5'9" Weight 179.00 lb BMI (Body Mass Index) 26.4 kg/m2 [place] Body Weight 160 lb Weight 81.194 kg BSA (Body Surface Area) 1.97 m2 01/01/2021 1:15pm BP Systolic 120 mmHg BP Diastolic 60 mmHg Heart Rate 68 /min O2 % BldC Oximetry 97 % Body Temperature 97.7 F Height 69 inches 5'9" Weight 179.00 lb BMI (Body Mass Index) 26.4 kg/m2 [place] Body Weight 160 lb Weight 81.194 kg BSA (Body Surface Area) 1.97 m2 Results Test Acquired Date Facility Test Result H/L Range Note Laboratory test finding 06/19/2021 [facility] Main Lab [address] [place] [address] [phone] Hemoglobin 9.4 g/dL Low 13.5-17.5 FVL/Chapo 06/19/2021 [employer] PDFReport SEE IMAGE FVC-Pred 3.90 L FVC-Pre 2.38 L FVC-%Pred-Pre 60 L FVC-LLN 3.00 L Fev1-Pred 2.78 L Fev1-Pre 1.43 L Fev1-%Pred-Pre 51 L Fev1-LLN 2.01 L Fev6-Pred 3.64 L Fev6-Pre 2.38 L Fev6-%Pred-Pre 65 L Fev6-LLN 2.76 L Suq8zig-Dinu 72 % Cpy2luk-Omg 60 % Ybi9rja-%Pred-Pre 83 % Qtb8bvm-RWD 62 % Zfd4jxp-Eopi 93 % Nfd9pcm-Vvj 100 % Ziq3wkh-%Pred-Pre 107 % FEFMax-Pred 7.13 L/E/sec FEFMax-Pre 3.96 L/E/sec FEFMax-%Pred-Pre 55 L/E/sec FEFMax-LLN 4.88 L/E/sec Nrv5794-Zelu 1.93 L/E/sec Tby6629-Gdn 0.73 L/E/sec Tkq6615-%Pred-Pre 37 L/E/sec Dgd3188-UME 0.38 L/E/sec ExpTime-Pre 6.87 sec Ohv4zpm9-Ldvk 76 % Gmr5bef0-Zmf 60 % Yby3fme2-%Pred-Pre 78 % Fqg5bvu6-DIE 67 % Laboratory test finding 05/30/2021 [facility] Main Lab [address] [place] [address] [phone] Hemoglobin 9.5 g/dL Low 13.5-17.5 Laboratory test finding 04/19/2021 [facility] Main Lab [address] [place], [place] 1063138 [phone] Hemoglobin 10.2 g/dL Low 13.5-17.5 Laboratory test finding 02/28/2021 [facility] Main Lab [address] [place] [address] [phone] Hemoglobin 10.4 g/dL Low 13.5-17.5 Hemoglobin A1c 01/30/2021 [facility] Main Lab [address] [place] [address] [phone] Hemoglobin A1c 6.0 % Normal 1 Estimated Average Glucose 126 mg/dL High 60-110 BUN & Creatinine ([facility]) 01/01/2021 [facility] Main Lab [address] [place] [address] [phone] Blood Urea Nitrogen 19 mg/dL High 7-18 Creatinine With GFR 01/01/2021 [facility] Main Lab [address] [place] [address] [phone] Creatinine For GFR 0.92 mg/dL Normal 0.70-1.30 Glomerular Filtration Rate > 60.0 Normal >42 2 Complete Blood Count 01/01/2021 [facility] enter Main Lab [address] [place] [address] [phone] White Blood Count 4.9 10 Normal 4.0-10.0 [...] Little GFR Left ESRD GFR <15 on FIRER ELECT[employer]IC LOCOMOTIVE Procedures Date Code Description Status 01/01/2021 20334 Office/Outpatient Established Mo d MDM 30-39 Min Completed Medical Devices Description No Information Available Encounters Type Date Location Provider Dx Diagnosis Office Visit 01/01/2021 1:30p [facility] Jonathan ars, D.O. I27.82 Chronic pulmonary [...]
--- OUTSIDE RECORDS SUMMARY | 2021-06-25 16:41 | CCD | Continuity of Care Document ---
Author Author Levy GIL M.D. Organization Unknown Address [address] [place] [address] Phone [phone] Care Team Providers Care Commercial Leasing Agent Name Role Phone [employer] AUTM [phone] Jonathan Roberson DO AUTM [phone] Problems Active Problems Provider Date Chronic obstructive [...] CPT Code Status Date Vaccine Lot # [id number] Given 03/24/2021 Boostrix (Tdap) Tetnus, Diphtheria Toxoids & Acellular Pertussis 06830 Given 10/08/2020 Moderna Sars-(Co vid-19) vaccine, mRNA, LNP-S, PF, 100 mcg/ 0.5 mL 30164 Given 09/10/2020 Moderna Sars-(Co vid-19) vaccine, mRNA, LNP-S, PF, 100 mcg/ 0.5 mL 54248 Given 06/07/2020 Influenza Virus Vaccine, Ronnell drivalent,multidose vial 91487 Given 07/21/2015 Prevnar 13 Vital Signs Date Vital Result Comment 04/02/2021 9:29am BP Systolic 120 mmHg BP Diastolic 55 mmHg Heart Rate 63 /min Body Temperature 97.0 F Respiratory Rate 17 /min Height 71 inches 5'11" Weight 181.00 lb O2 % BldC Oximetry 98 % Peak Expiratory Flow Rate 515 Estimated Peak Flow Rate [place] Body Weight 172 lb BMI (Body Mass Index) 25.2 kg/m2 03/05/2020 8:59am BP Systolic 132 mmHg BP Diastolic 61 mmHg Heart Rate 63 /min Body Temperature 97.2 F Respiratory Rate 16 /min Height 71 inches 5'11" Weight 183.56 lb O2 % dC Oximetry 97 % Peak Expiratory Flow Rate 511 Estimated Peak Flow Rate [place] Body Weight 172 lb BMI (Body Mass Index) 25.6 kg/m2 Results Test Acquired Date Facility Test Result H/L Range Note Ua W/ Reflex To Culture 05/27/2021 [facility] [place], [place] [id number] [phone] Appearance, Urine RFX CLEAR Normal Clear Color, Urine RFX STRAW Normal Yellow PH,Urine RFX 5.0 units Normal 5.0-9.0 Specific [place] Ur Auto RFX 1.005 Normal 1.002-1.035 Protein, [...] CBC With Differential 05/27/2021 [place] [address]1647 [phone] White Blood Count 5.9 10 Normal 4.0-10.0 [...] 36.0-66.0 Lymph % 19.1 % Low 24.0-44.0 [place] % 10.3 % High 2.0-8.0 Eos % 5.0 % High 0.0-3.0 Baso % 0.7 % Normal 0.0-1.0 Immature Granulocyte % 0.3 % Normal 0-3.0 Nucleated Red Blood Cell % 0.0 % Normal 0-0 Neutrophils # 3.8 10 Normal 1.5-8.5 Lymph # 1.1 10 Low 1.5-5.0 [place] # 0.6 10 Normal 0.0-0.8 Eos # 0.3 10 Normal 0.0-0.5 Baso # 0.0 10 Normal 0.0-0.2 Liver Profile 05/27/2021 [place] [address] [phone] Ast/Sgot 19 U/L Normal 7-37 Alt/SGPT 29 U/L Normal 12-78 Alkaline Phosphatase 87 U/L Normal 45-117 Bilirubin,Total 0.2 mg/dL Normal 0.2-1.0 Bilirubin,Direct < 0.1 mg/dL Normal 0.0-0.2 Total Protein 6.7 GM/DL Normal 6.4-8.2 Albumin 3.7 GM/DL Normal 3.2-5.2 Albumin/Globulin Ratio 1.2 Normal Basic Metabolic Profile 05/27/2021 [place] [address] [phone] Glucose, Fasting 87 mg/dL Normal 70-100 Blood [...] 8.8-10.2 Laboratory test finding 05/27/2021 Patient Service [facility] [place], [place] 12[address]14 [phone] Lipase 100 U/L Normal 73-393 Istat Chem8+ Panel 03/24/2021 Patient Service [facility] [place] [address] [phone] iSTAT HCT 31.0 % Low 38.0-51.0 iSTAT [...] Little GFR Left ESRD GFR <15 on [employer] Procedures Date Code Description Status 04/02/2021 08268 Office/Outpatient Established Mo d MDM 30-39 Min [...]
--- OUTSIDE RECORDS SUMMARY | 2021-06-25 16:41 | CCD | Continuity of Care Document ---
Author Author Levy MERCER D.O. Organization [place] [address] Phone [phone] Care Team Providers Care Gear Design Engineer Name Role Phone Diaz Mendez M.D. AUTM [phone] Annie Rashid M.D. AUTM [phone] Problems Active Problems Provider Date Chronic obstructive [...] CPT Code Status Date Vaccine Lot # [id number] Given 05/17/2020 Flublock, Quadrivalent Q2036 Given 05/25/2013 Influenza Vaccine 3 Years Of Age Or Older (Flulaval) Vital Signs Date Vital Result Comment 06/19/2021 10:08am BP Systolic 110 mmHg BP Diastolic 74 mmHg Heart Rate 64 /min O2 % BldC Oximetry 99 % Height 69 inches 5'9" Weight 179.00 lb BMI (Body Mass Index) 26.4 kg/m2 [place] Body Weight 160 lb Weight 81.194 kg BSA (Body Surface Area) 1.97 m2 01/01/2021 1:15pm BP Systolic 120 mmHg BP Diastolic 60 mmHg Heart Rate 68 /min O2 % BldC Oximetry 97 % Body Temperature 97.7 F Height 69 inches 5'9" Weight 179.00 lb BMI (Body Mass Index) 26.4 kg/m2 [place] Body Weight 160 lb Weight 81.194 kg BSA (Body Surface Area) 1.97 m2 Results Test Acquired Date Facility Test Result H/L Range Note Laboratory test finding 06/19/2021 [facility] Main Lab [address] [place] [address] [phone] Hemoglobin 9.4 g/dL Low 13.5-17.5 FVL/Chapo 06/19/2021 [employer] PDFReport SEE IMAGE FVC-Pred 3.90 L FVC-Pre 2.38 L FVC-%Pred-Pre 60 L FVC-LLN 3.00 L Fev1-Pred 2.78 L Fev1-Pre 1.43 L Fev1-%Pred-Pre 51 L Fev1-LLN 2.01 L Fev6-Pred 3.64 L Fev6-Pre 2.38 L Fev6-%Pred-Pre 65 L Fev6-LLN 2.76 L Rvr1vcx-Xkhl 72 % Mzg0qfh-Aoq 60 % Urc4wav-%Pred-Pre 83 % Jwe6hzb-CEZ 62 % Ich9umy-Zzav 93 % Evb8baa-Nnw 100 % Xrm9ija-%Pred-Pre 107 % FEFMax-Pred 7.13 L/E/sec FEFMax-Pre 3.96 L/E/sec FEFMax-%Pred-Pre 55 L/E/sec FEFMax-LLN 4.88 L/E/sec Vqj6904-Bumq 1.93 L/E/sec Kql1872-Uqo 0.73 L/E/sec Eqk5555-%Pred-Pre 37 L/E/sec Udt7428-GDN 0.38 L/E/sec ExpTime-Pre 6.87 sec Ght3jwq2-Yynr 76 % Eux7zix7-Xwl 60 % Azg5wiz1-%Pred-Pre 78 % Jbr4hen7-MRV 67 % Laboratory test finding 05/30/2021 [facility] Main Lab [address] [place] [address] [phone] Hemoglobin 9.5 g/dL Low 13.5-17.5 Laboratory test finding 04/19/2021 [facility] Main Lab [address] [place], [place] [address] [phone] Hemoglobin 10.2 g/dL Low 13.5-17.5 Laboratory test finding 02/28/2021 [facility] Main Lab [address] [place] [address] [phone] Hemoglobin 10.4 g/dL Low 13.5-17.5 Hemoglobin A1c 01/30/2021 [facility] Main Lab [address] [place] [address] [phone] Hemoglobin A1c 6.0 % Normal 1 Estimated Average Glucose 126 mg/dL High 60-110 BUN & Creatinine ([facility]) 01/01/2021 [facility] Main Lab [address] [place] [address] [phone] Blood Urea Nitrogen 19 mg/dL High 7-18 Creatinine With GFR 01/01/2021 [facility] Main Lab [address] [place] [address] [phone] Creatinine For GFR 0.92 mg/dL Normal 0.70-1.30 Glomerular Filtration Rate > 60.0 Normal >42 2 Complete Blood Count 01/01/2021 [facility] enter Main Lab [address] [place] [address] [phone] White Blood Count 4.9 10 Normal 4.0-10.0 [...] Little GFR Left ESRD GFR <15 on LEAD [employer] Procedures Date Code Description Status 01/01/2021 59267 Office/Outpatient Established Mo d MDM 30-39 Min Completed Medical Devices Description No Information Available Encounters Type Date Location Provider Dx Diagnosis Office Visit 01/01/2021 1:30p [facility] Jonathan ars, D.O. I27.82 Chronic pulmonary [...]
--- OUTSIDE RECORDS SUMMARY | 2021-06-25 16:42 | CCD ---
Author Author [facility] Organization [facility] Address Unknown Phone Unavailable Care Team Providers Care Pulp Bleacher Name Role Phone Biju [facility], PA-C Unavailable Unavailabl e Fish, [facility], PA-C Unavailable Unavailabl e Fish, [facility], PA-C Unavailable Unavailabl e Fish, [facility], PA-C Unavailable Unavailabl e Fish, [facility], PA-C Unavailable Unavailabl e Fish, [facility], PA-C Unavailable Unavailabl e Fish, [facility], PA-C Unavailable Unavailabl e Fish, [facility], PA-C Unavailable Unavailabl e Fish, [facility], PA-C Unavailable Unavailabl e Fish, [facility], PA-C Unavailable Unavailabl e Fish, [facility], PA-C Unavailable Unavailabl e Fish, [facility], PA-C Unavailable Unavailabl e Fish, [facility], PA-C Unavailable Unavailabl e Fish, [facility], PA-C Unavailable Unavailabl e Fish, [facility], PA-C Unavailable Unavailabl e Fish, [facility], PA-C Unavailable Unavailabl e Fish, [facility], PA-C Unavailable Unavailabl e Fish, [facility], PA-C Unavailable Unavailabl e Fish, [facility], PA-C Unavailable Unavailabl e Fish, [facility], PA-C Unavailable Unavailabl e Fish, [facility], PA-C Unavailable Unavailabl e Fish, [facility], PA-C Unavailable Unavailabl e Fish, [facility], PA-C Unavailable Unavailabl e Fish, [facility], PA-C Unavailable Unavailabl e Fish, [facility], PA-C Unavailable Unavailabl e Fish, [facility], PA-C Unavailable Unavailabl e Fish, [facility], PA-C Unavailable Unavailabl e Fish, [facility], PA-C Unavailable Unavailabl e Fish, [facility], PA-C Unavailable Unavailabl e Fish, [facility], PA-C Unavailable Unavailabl e Fish, [facility], PA-C Unavailable Unavailabl e Fish, [facility], PA-C Unavailable Unavailabl e Fish, [facility], PA-C Unavailable Unavailabl e Fish, [facility], PA-C Unavailable Unavailabl e Fish, [facility], PA-C Unavailable Unavailabl e Fish, [facility], PA-C Unavailable Unavailabl e Mandappa, Sobia CASAC Unavailable Unavailable Mandappa, Sobia CASAC Unavailable Unavailable Mandappa, Sobia CASAC Unavailable Unavailable Mandappa, Sobia CASAC Unavailable Unavailable SEARS, A PATRICE DO Unavailable Unavailable SEARS, A PATRICE DO Unavailable Unavailable SEARS, A PATRICE DO Unavailable Unavailable SEARS, A PATRICE DO Unavailable Unavailable SEARS, A PATRICE DO Unavailable Unavailable SEARS, A PATRICE DO Unavailable Unavailable SEARS, A PATRICE DO Unavailable Unavailable SEARS, A PATRICE DO Unavailable Unavailable SEARS, A PATRICE DO Unavailable Unavailable SEARS, A PATRICE DO Unavailable Unavailable SEARS, A PATRICE DO Unavailable Unavailable SEARS, A PATRICE DO Unavailable Unavailable SEARS, A PATRICE DO Unavailable Unavailable SEARS, A PATRICE DO Unavailable Unavailable SEARS, A PATRICE DO Unavailable Unavailable SEARS, A PATRICE DO Unavailable Unavailable SEARS, A PATRICE DO Unavailable Unavailable SEARS, A PATRICE DO Unavailable Unavailable SEARS, A PATRICE DO Unavailable Unavailable SEARS, A PATRICE DO Unavailable Unavailable SEARS, A PATRICE DO Unavailable Unavailable SEARS, A PATRICE DO Unavailable Unavailable SEARS, A PATRICE DO Unavailable Unavailable SEARS, A PATRICE DO Unavailable Unavailable SEARS, A PATRICE DO Unavailable Unavailable SEARS, A PATRICE DO Unavailable Unavailable SEARS, A PATRICE DO Unavailable Unavailable SEARS, A PATRICE DO Unavailable Unavailable SEARS, A PATRICE DO Unavailable Unavailable SEARS, A PATRICE DO Unavailable Unavailable SEARS, A PATRICE DO Unavailable Unavailable SEARS, A PATRICE DO Unavailable Unavailable SEARS, A PATRICE DO Unavailable Unavailable SEARS, A PATRICE DO Unavailable Unavailable SEARS, A PATRICE DO Unavailable Unavailable SEARS, A PATRICE DO Unavailable Unavailable SEARS, A PATRICE DO Unavailable Unavailable SEARS, A PATRICE DO Unavailable Unavailable SEARS, A PATRICE DO Unavailable Unavailable SEARS, A PATRICE DO Unavailable Unavailable SEARS, A PATRICE DO Unavailable Unavailable SEARS, A PATRICE DO Unavailable Unavailable SEARS, A PATRICE DO Unavailable Unavailable SEARS, A PATRICE DO Unavailable Unavailable SEARS, A PATRICE DO Unavailable Unavailable SEARS, A PATRICE DO Unavailable Unavailable SEARS, A PATRICE DO Unavailable Unavailable SEARS, A PATRICE DO Unavailable Unavailable GEMINI, Soraida HUGO MD Unavailable Unavailable GEMINI, Soraida HUGO MD Unavailable Unavailable GEMINI, Soraida HUGO MD Unavailable Unavailable GEMINISoraida MD Unavailable Unavailable GEMINISoraida MD Unavailable Unavailable GEMINISoraida MD Unavailable Unavailable GEMINISoraida MD Unavailable Unavailable GEMINISoraida MD Unavailable Unavailable GEMINISoraida MD Unavailable Unavailable GEMINISoraida MD Unavailable Unavailable GEMINISoraida MD Unavailable Unavailable GEMINISoraida MD Unavailable Unavailable GEMINISoraida MD Unavailable Unavailable GEMINISoraida MD Unavailable Unavailable GEMINISoraida MD Unavailable Unavailable GEMINISoraida MD Unavailable Unavailable GEMINISoraida MD Unavailable Unavailable GEMINISoraida Najera MD Unavailable Unavailable GEMINISoraida MD Unavailable Unavailable GEMINISoraida MD Unavailable Unavailable GEMINISoraida MD Unavailable Unavailable GEMINISoraida MD Unavailable Unavailable GEMINISoraida MD Unavailable Unavailable GEMINI, Soraida HUGO MD Unavailable Unavailable GEMINI, Soraida HUGO MD Unavailable Unavailable GEMINI, Soraida HUGO MD Unavailable Unavailable GEMINI, Soraida HUGO MD Unavailable Unavailable GEMINI, Soraida HUGO MD Unavailable Unavailable GEMINI, Soraida HUGO MD Unavailable Unavailable GEMINI, Soraida HUGO MD Unavailable Unavailable GEMINI, Soraida HUGO MD Unavailable Unavailable GEMINI, Soraida HUGO MD Unavailable Unavailable GEMINI, Soraida HUGO MD Unavailable Unavailable GEMINI, Soraida HUGO MD Unavailable Unavailable GEMINI, Soraida HUGO MD Unavailable Unavailable GEMINI, Soraida HUGO MD Unavailable Unavailable GEMINI, Soraida HUGO MD Unavailable Unavailable GEMINI, Soraida HUGO MD Unavailable Unavailable GEMINI, Soraida HUGO MD Unavailable Unavailable GEMINI, Soraida HUGO MD Unavailable Unavailable GEMINI, Soraida HUGO MD Unavailable Unavailable GEMINI, Soraida HUGO MD Unavailable Unavailable GEMINI, Soraida HUGO MD Unavailable Unavailable GEMINI, Soraida HUGO MD Unavailable Unavailable GEMINI, Soraida HUGO MD Unavailable Unavailable GEMINI, Soraida HUGO MD Unavailable Unavailable GEMINI, Soraida HUGO MD Unavailable Unavailable GEMINI, Soraiad HUGO MD Unavailable Unavailable GEMINI, Soraida HUGO MD Unavailable Unavailable GEMINI, Soraida HUGO MD Unavailable Unavailable GEMINI, Soraida HUGO MD Unavailable Unavailable GEMINI, Soraida HUGO MD Unavailable Unavailable GEMINI, Soraida HUGO MD Unavailable Unavailable GEMINI, Soraida HUGO MD Unavailable Unavailable GEMINI, Soraida HUGO MD Unavailable Unavailable GEMINI, Soraida HUGO MD Unavailable Unavailable GEMINI, Soraida HUGO MD Unavailable Unavailable GEMINI, Soraida HUGO MD Unavailable Unavailable GEMINI, Soraida HUGO MD Unavailable Unavailable GEMINI, Soraida HUGO MD Unavailable Unavailable GEMINI, Soraida HUGO MD Unavailable Unavailable GEMINI, Soraida HUGO MD Unavailable Unavailable GEMINI, Soraida HUGO MD Unavailable Unavailable GEMINI, Soraida HUGO MD Unavailable Unavailable GEMINI, Soraida HUGO MD Unavailable Unavailable GEMINI, Soraida HUGO MD Unavailable Unavailable GEMINI, Soraida HUGO MD Unavailable Unavailable GEMINI, Soraida HUGO MD Unavailable Unavailable GEMINI, Soraida HUGO MD Unavailable Unavailable GEMINI, Soraida HUGO MD Unavailable Unavailable GEMINI, Soraida HUGO MD Unavailable Unavailable GEMINI, Soraida HUGO MD Unavailable Unavailable GEMINI, Soraida HUGO MD Unavailable Unavailable GEMINI, Soraida HUGO MD Unavailable Unavailable GEMINI, Soraida HUGO MD Unavailable Unavailable GEMINI, Soraida HUGO MD Unavailable Unavailable GEMINI, Soraida HUGO MD Unavailable Unavailable GEMINI, Soraida HUGO MD Unavailable Unavailable GEMINI, Soraida HUGO MD Unavailable Unavailable GEMINI, Soraida HUGO MD Unavailable Unavailable GEMINI, Soraida HUGO MD Unavailable Unavailable GEMINI, Soraida HUGO MD Unavailable Unavailable GEMINI, Soraida HUGO MD Unavailable Unavailable GEMINI, Soraida HUGO MD Unavailable Unavailable GEMINI, Soraida HUGO MD Unavailable Unavailable GEMINI, Soraida HUGO MD Unavailable Unavailable GEMINI, Soraida HUGO MD Unavailable Unavailable GEMINI, Soraida HUGO MD Unavailable Unavailable GEMINI, Soraida HUGO MD Unavailable Unavailable GEMINI, Soraida HUGO MD Unavailable Unavailable GEMINI, Soraida HUGO MD Unavailable Unavailable Ruthie Rashid MD Unavailable Unavailable Ruthie Rashid MD Unavailable Unavailable Ruthie Rashid MD Unavailable Unavailable Ruthie Rashid MD Unavailable Unavailable Ruthie Rashid MD Unavailable Unavailable Ruthie Rashid MD Unavailable Unavailable Ruthie Rashid MD Unavailable Unavailable Ruthie Rashid MD Unavailable Unavailable Ruthie Rashid MD Unavailable Unavailable Ruthie Rashid MD Unavailable Unavailable Ruthie Rashid MD Unavailable Unavailable Ruthie Rashid MD Unavailable Unavailable Ruthie Rashid MD Unavailable Unavailable Ruthie Rashid MD Unavailable Unavailable Ruthie Rashid MD Unavailable Unavailable Ruthie Rashid MD Unavailable Unavailable Ruthie Rashid MD Unavailable Unavailable Ruthie Rashid MD Unavailable Unavailable Ruthie Rashid MD Unavailable Unavailable Ruthie Rashid MD Unavailable Unavailable Ruthie Rashid MD Unavailable Unavailable Ruthie Rashid MD Unavailable Unavailable Ruthie Rashid MD Unavailable Unavailable Ruthie Rashid MD Unavailable Unavailable Ruthie Rashid MD Unavailable Unavailable Ruthie Rashid MD Unavailable Unavailable Ruthie Rashid MD Unavailable Unavailable Ruthie Rashid MD Unavailable Unavailable Rachid, Ruthie Valencia MD Unavailable Unavailable Ruthie Rashid MD Unavailable Unavailable Ruthie Rashid MD Unavailable Unavailable Ruthie Rashid MD Unavailable Unavailable Ruthie Rashid MD Unavailable Unavailable Ruthie Rashid MD Unavailable Unavailable Ruthie Rashid MD Unavailable Unavailable Ruthie Rashid MD Unavailable Unavailable RachidRuthie MD Unavailable Unavailable Ruthie Rashid MD Unavailable Unavailable RachidRuthie MD Unavailable Unavailable Rachid, A Annie GROSSMAN Unavailable Unavailable Rachid, A Annie GROSSMAN Unavailable Unavailable Rachid, A Annie GROSSMAN Unavailable Unavailable Rachid, A Annie GROSSMAN Unavailable Unavailable Rachid, A Annie GROSSMAN Unavailable Unavailable Rachid, A Annie GROSSMAN Unavailable Unavailable Rachid, A Annie GROSSMAN Unavailable Unavailable Rachid, A Annie GROSSMAN Unavailable Unavailable Rachid, A Annie GROSSMAN Unavailable Unavailable Rachid, A Annie GROSSMAN Unavailable Unavailable Rachid, A Annie GROSSMAN Unavailable Unavailable Rachid, A Annie GROSSMAN Unavailable Unavailable Rachid, A Annie GROSSMAN Unavailable Unavailable Rachid, A Annie GROSSMAN Unavailable Unavailable Rachid, A Annie GROSSMAN Unavailable Unavailable Rachid, A Annie GROSSMAN Unavailable Unavailable Rachid, A Annie GROSSMAN Unavailable Unavailable Rachid, A Annie GROSSMAN Unavailable Unavailable Rachid, A Annie GROSSMAN Unavailable Unavailable Rachid, A Annie GROSSMAN Unavailable Unavailable Rachid, A Annie GROSSMAN Unavailable Unavailable Rachid, A Annie GROSSMAN Unavailable Unavailable Rachid, A Annie GROSSMAN Unavailable Unavailable Rachid, A Annie GROSSMAN Unavailable Unavailable Rachid, A Annie GROSSMAN Unavailable Unavailable Rachid, A Annie GROSSMAN Unavailable Unavailable Rachid, A Annie GROSSMAN Unavailable Unavailable Rachid, A Annie GROSSMAN Unavailable Unavailable Rachid, A Annie GROSSMAN Unavailable Unavailable Rachid, A Annie GROSSMAN Unavailable Unavailable Rachid, A Annie GROSSMAN Unavailable Unavailable Rachid, A Annie GROSSMAN Unavailable Unavailable Rachid, A Annie GROSSMAN Unavailable Unavailable Rachid, A Annie GROSSMAN Unavailable Unavailable Rachid, A Annie GROSSMAN Unavailable Unavailable Rachid, A Annie GROSSMAN Unavailable Unavailable Rachid, A Annie GROSMSAN Unavailable Unavailable Rachid, A Annie GROSSMAN Unavailable Unavailable Rachid, A Annie GROSSMAN Unavailable Unavailable Rachid, A Annie GROSSMAN Unavailable Unavailable Rachid, A Annie GROSSMAN Unavailable Unavailable Rachid, A Annie GROSSMAN Unavailable Unavailable Rachid, Ruthie Valencia MD Unavailable Unavailable DUNG, L IAN PA Unavailable Unavailable DUNG, L IAN PA Unavailable Unavailable DUNG, L IAN PA Unavailable Unavailable DUNG, L IAN PA Unavailable Unavailable DUNG, L IAN PA Unavailable Unavailable DUNG, L IAN PA Unavailable Unavailable DUNG, L IAN PA Unavailable Unavailable DUNG, L IAN PA Unavailable Unavailable DUNG, L IAN PA Unavailable Unavailable DUNG, L IAN PA Unavailable Unavailable DUNG, L IAN PA Unavailable Unavailable DUNG, L IAN PA Unavailable Unavailable DUNG, L IAN PA Unavailable Unavailable DUNG, L IAN PA Unavailable Unavailable DUNG, L IAN PA Unavailable Unavailable DUNG, L IAN PA Unavailable Unavailable BLACKLarissa Murguia RPA Unavailable Unavailable BLACK, G EDWARD RPA Unavailable Unavailable BLACK, G EDWARD RPA Unavailable Unavailable BLACK, G EDWARD RPA Unavailable Unavailable BLACK, G EDWARD RPA Unavailable Unavailable BLACK, G EDWARD RPA Unavailable Unavailable BLACK, G EDWARD RPA Unavailable Unavailable BLACK, G EDWARD RPA Unavailable Unavailable BLACK, G EDWARD RPA Unavailable Unavailable BLACK, G EDWARD RPA Unavailable Unavailable BLACK, G EDWARD RPA Unavailable Unavailable BLACK, G EDWARD RPA Unavailable Unavailable BLACK, G EDWARD RPA Unavailable Unavailable BLACK, G EDWARD RPA Unavailable Unavailable BLACK, G EDWARD RPA Unavailable Unavailable BLACK, G EDWARD RPA Unavailable Unavailable BLACK, G EDWARD RPA Unavailable Unavailable BLACK, G EDWARD RPA Unavailable Unavailable BLACK, G EDWARD RPA Unavailable Unavailable BLACK, G EDWARD RPA Unavailable Unavailable BLACK, G EDWARD RPA Unavailable Unavailable BLACK, G EDWARD RPA Unavailable Unavailable BLACK, G EDWARD RPA Unavailable Unavailable BLACK, G EDWARD RPA Unavailable Unavailable BLACK, G EDWARD RPA Unavailable Unavailable BLACK, G EDWARD RPA Unavailable Unavailable BLACK, G EDWARD RPA Unavailable Unavailable BLACK, G EDWARD RPA Unavailable Unavailable BLACK, G EDWARD RPA Unavailable Unavailable BLACK, G EDWARD RPA Unavailable Unavailable BLACK, G EDWARD RPA Unavailable Unavailable BLACK, G EDWARD RPA Unavailable Unavailable BLACK, G EDWARD RPA Unavailable Unavailable BLACK, G EDWARD RPA Unavailable Unavailable BLACK, G EDWARD RPA Unavailable Unavailable BLACK, G EDWARD RPA Unavailable Unavailable BLACK, G EDWARD RPA Unavailable Unavailable Re-disclosure Warning The records that you are about to access may contain information from federally-assisted alcohol or drug abuse programs. If such information is present, then the following federally mandated warning applies: This information has been disclosed to you from records protected by federal confidentiality rules (42 CFR part 2). The federal rules prohibit you from making any further disclosure of this information unless further disclosure is expressly permitted by the written consent of the person to whom it pertains or as otherwise permitted by 42 CFR part 2. A general authorization for the release of medical or other information is NOT sufficient for this purpose. The Federal rules restrict any use of the information to criminally investigate or prosecute any alcohol or drug abuse patient.The records that you are about to access may contain highly sensitive health information, the redisclosure of which is protected by Article 27-F of the [facility] Public Health law. If you continue you may have access to information: Regarding HIV / AIDS; Provided by facilities licensed or operated by the [facility] Office of Mental Health; or Provided by the [facility] Office for People With Developmental Disabilities. If such information is present, then the following [facility] mandated warning applies: This information has been disclosed to you from confidential records which are protected by state law. State law prohibits you from making any further disclosure of this information without the specific written consent of the person to whom it pertains, or as otherwise permitted by law. Any unauthorized further disclosure in violation of state law may result in a fine or shelter sentence or both. A general authorization for the release of medical or other information is NOT sufficient authorization for further disc losure. Family History Family Member Name Family Member Gender Family Member Status Date o f Status Description Data Source(s) Unknown Unknown Problem [facility] Unknown Male Problem [facility] ([facility]) () Unknown Male Problem [facility] ([facility] [place] Unknown Unknown Problem [facility] ([facility] Encounters Encounter Providers Location Date Indications Data Source(s ) Outpatient Attender: IAN HERNANDEZ Main Office 06/21/2021 1 0:45:00 AM EDT [facility] ([facility]) Outpatient Attender: BETHEL SINGLETARY MDReferrer: Sobia smitha CASAC 06/05/2021 12:18:31 PM EDT [facility] Recurring Patient Referrer: Annie Rashid MD 05/29/2021 0 1:26:00 PM EDT [facility] Recurring Patient Referrer: Annie Rashid MD 05/29/2021 0 1:25:51 PM EDT [facility] Recurring Patient Referrer: Sobia Alaniz CASAC 04/09/2021 09:25:50 AM EDT [facility] Outpatient Attender: Annie Rashid MD Main Office 04/02/2021 09:30:0 0 AM EDT [facility] ([facility] Recurring Patient Referrer: Sobia Alaniz CASAC 03/25/2021 02:06:29 PM EDT [facility] Recurring Patient Referrer: Sobia Alaniz YU 03/25/2021 02:06:13 PM EDT [facility] Office Visit, Est Pt., Level 3 PC [address] [place] [address] 01/22/2021 12:00:00 AM EDT eCW1 ([facility]) Outpatient Attender: PATRICE MERCER DO Mary/Cassatt/Bhaskar/Reindl 01/01/2021 01:30:00 PM EDT [facility] ([facility] (DRMPDT) [facility] [address] [place] [phone] 12/17/2020 12:00:00 AM EDT eCW1 ([facility]) Outpatient Attender: TATIANA BLACK RPA 12/15 05:49:46 PM EDT - 12/15/2020 07:21:05 PM EDT [facility] ([facility] ) Office Visit, Est Pt., Level 4 PC [address] [place] [address] 11/29/2020 12:00:00 AM EDT eCW1 ([facility]) Outpatient Attender: PATRICE MERCER DO Mary/Cassatt/Bhaskar/Reindl 11/15/2020 11:30:00 AM EDT [facility] ([facility]) Outpatient Attender: PATRICE MERCER DO Mary/Cassatt/Bhaskar/Reindl 07/05/2020 11:30:00 AM EST [facility] ([facility]) Outpatient Attender: PATRICE MERCER DO Mary/Cassatt/Bhaskar/Reindl 06/11/2020 09:00:00 AM EDT [facility] ([facility]) [facility] [address] [place] [phone] 05/23/2020 12:00:00 AM EDT eCW1 ([facility]) OFFICE OUTPATIENT VISIT 15 MINUTES Attender: Annie Fish MPAS , PA-C Physical Therapy 05/22/2020 11:00:00 AM EDT [facility] ([facility]) Immunizations Vaccine Date Status Description Data Source(s) Tdap 03/24/2021 12:00:00 AM EDT completed M [facility] ([facility] COVID-19 VACCINE Moderna 10/08/2020 12:00:00 AM EST completed [facility] Vaccine Series Complete: YESThis Data wa s Submitted to [facility] Via [employer] COVID-19 VACCINE, MRNA-1273, LNP-S (MODERNA)/PF 10/08/2020 1 2:00:00 AM EST completed [facility] Moderna Sars-(Covid-19) vaccine, mRNA, LNP-S, PF, 100 mcg/ 0.5 mL 10/07/2020 11:00:00 PM EST completed [facility] ([facility] COVID-19 VACCINE, MRNA-1273, LNP-S (MODERNA)/PF 09/10/2020 1 2:00:00 AM EST completed [facility] COVID-19 VACCINE Moderna 09/10/2020 12:00:00 AM EST completed [facility] Vaccine Series Complete: NOThis Data was Submitted to [facility] Via [employer] Moderna Sars-(Covid-19) vaccine, mRNA, LNP-S, PF, 100 mcg/ 0.5 mL 09/09/2020 11:00:00 PM EST completed [facility] ([facility] New in 2012. IIV4 06/07/2020 12:03:00 PM EDT completed [facility] ([facility] INFLUENZA VACCINE QUADRIVALENT 2019- (65 YR UP)/MF59 C.1/PF 06/07/2020 12:00:00 AM EDT completed [facility] New in 2011. IIV4 05/17/2020 08:51:00 AM EDT completed [facility] ([facility], ) Medications Medication Brand Name Start Date Product Form Dose Route Admi nistrative Instructions Pharmacy Instructions Status Indications Reaction Description Data Source(s) 240 mcg/0.7 mL 06/11/2021 12:00:00 AM EDT syringe 0 INJECT DIRECTED INJECT DIRECTED SOLD: 06/11/2021 [facility] 40 mg 05/02/2021 12:00:00 AM EDT capsule,delayed release (DR/EC) 30 TAKE ONE CAPSULE BY MOUTH EVERY DAY TAKE ONE CAPSULE BY MOUTH EVERY DAY SOLD: 06/17/2021 [facility] 40 mg 05/02/2021 12:00:00 AM EDT capsule,delayed release (DR/EC) 30 TAKE ONE CAPSULE BY MOUTH EVERY DAY TAKE ONE CAPSULE BY MOUTH EVERY DAY SOLD: 05/18/2021 [facility] 20 mg 03/15/2021 12:00:00 AM EDT capsule,delayed release (DR/EC) 30 TAKE 1 CAPSULE BY MOUTH ONCE PER DAY FOR 30 DAYS TAKE 1 CAPSULE BY MOUTH ONCE PER DAY FOR 30 DAYS SOLD: 03/16/2021 [facility] Esomeprazole 20 MG Delayed Release Oral Capsule ESOMEPRAZOLE MAGNESIUM 03/15/2021 12:00:00 AM EDT capsule,delayed release(DR/EC) 30 TAKE 1 CAPSULE BY MOUTH ONCE PER DAY FOR 30 DAYS TAKE 1 CAPSULE BY MOUTH ONCE PER DAY FOR 30 DAYS SOLD: 04/14/2021 [facility] Citalopram 20 MG Oral Tablet CITALOPRAM HYDROBROMIDE 01/21/2021 12:00:00 AM EDT tablet 30 TAKE ONE TABLET BY MOUTH EVERY D AY TAKE ONE TABLET BY MOUTH EVERY DAY SOLD: 01/28/2021 [facility] Citalopram 20 MG Oral Tablet CITALOPRAM HYDROBROMIDE 01/21/2021 12:00:00 AM EDT tablet 30 TAKE ONE TABLET BY MOUTH EVERY D AY TAKE ONE TABLET BY MOUTH EVERY DAY SOLD: 04/03/2021 [facility] Citalopram 20 MG Oral Tablet CITALOPRAM HYDROBROMIDE 01/21/2021 12:00:00 AM EDT tablet 30 TAKE ONE TABLET BY MOUTH EVERY D AY TAKE ONE TABLET BY MOUTH EVERY DAY SOLD: 02/28/2021 [facility] 20 mg 12/18/2020 12:00:00 AM EDT tablet 30 TAKE ONE TABLET BY MOUTH EVERY DAY TAKE ONE TABLET BY MOUTH EVERY DAY SOLD: 02/17/2021 [facility] 20 mg 12/18/2020 12:00:00 AM EDT tablet 30 TAKE ONE TABLET BY MOUTH EVERY DAY TAKE ONE TABLET BY MOUTH EVERY DAY SOLD: 01/18/2021 [facility] rivaroxaban 20 MG Oral Tablet [Xarelto] Xarelto 12/18/2020 12:00:0 0 AM EDT ORAL active [facility] ([facility], ) 20 mg 12/18/2020 12:00:00 AM EDT tablet 30 TAKE ONE TABLET BY MOUTH EVERY DAY TAKE ONE TABLET BY MOUTH EVERY DAY SOLD: 03/16/2021 [facility] 20 mg 12/18/2020 12:00:00 AM EDT tablet 30 TAKE ONE TABLET BY MOUTH EVERY DAY TAKE ONE TABLET BY MOUTH EVERY DAY SOLD: 06/17/2021 [facility] 20 mg 12/18/2020 12:00:00 AM EDT tablet 30 TAKE ONE TABLET BY MOUTH EVERY DAY TAKE ONE TABLET BY MOUTH EVERY DAY SOLD: 04/14/2021 [facility] 20 mg 12/18/2020 12:00:00 AM EDT tablet 30 TAKE ONE TABLET BY MOUTH EVERY DAY TAKE ONE TABLET BY MOUTH EVERY DAY SOLD: 05/18/2021 [facility] 20 mg 12/18/2020 12:00:00 AM EDT tablet 30 TAKE ONE TABLET BY MOUTH EVERY DAY TAKE ONE TABLET BY MOUTH EVERY DAY SOLD: 12/19/2020 [facility] 15 mg (42)- 20 mg (9) 11/16/2020 12:00:00 AM EDT tablets,dos e pack 51 TAKE 1 TABLET [15MG] BY MOUTH TWICE A DAY FOR 21 DAYS THEN 1 TABLET [20MG] DAILY TAKE 1 TABLET [15MG] BY MOUTH TWICE A DAY FOR 21 DAYS THEN 1 TABLET [20MG] DAILY SOLD: 11/16/2020 [facility] Xarelto Starter Pack Xarelto Starter Pack 11/15/2020 12:00:00 AM EDT ORAL completed [facility] ([facility], ) 0.5 mg 11/14/2020 12:00:00 AM EDT tablet 180 TAKE TWO TABLETS BY MOUTH AT BEDTIME TAKE TWO TABLETS BY MOUTH AT BEDTIME SOLD: 11/14/2020 [facility] 0.5 mg 11/14/2020 12:00:00 AM EDT tablet 180 TAKE TWO TABLETS BY MOUTH AT BEDTIME TAKE TWO TABLETS BY MOUTH AT BEDTIME SOLD: 02/12/2021 [facility] pantoprazole 40 MG Delayed Release Oral Tablet PANTOPRAZOLE SODIUM 10/15/2020 12:00:00 AM EST tablet,delayed release (DR/EC) 90 T BLAIR ONE TABLET BY MOUTH EVERY DAY FOR HEARTBURN/ACID REFLUX TAKE ONE TABLET BY MOUTH EVERY DAY FOR HEARTBURN/ACID REFLUX SOLD: 10/17/2020 [facility] pantoprazole 40 MG Delayed Release Oral Tablet PANTOPRAZOLE SODIUM 10/15/2020 12:00:00 AM EST tablet,delayed release (DR/EC) 90 T BLAIR ONE TABLET BY MOUTH EVERY DAY FOR HEARTBURN/ACID REFLUX TAKE ONE TABLET BY MOUTH EVERY DAY FOR HEARTBURN/ACID REFLUX SOLD: 01/15/2021 [facility] Rosuvastatin calcium 20 MG Oral Tablet ROSUVASTATIN CALCIUM 09/10/2020 12:00:00 AM EST tablet 90 TAKE ONE TABLET BY MOUTH AT BEDTIME TAKE ONE TABLET BY MOUTH AT BEDTIME SOLD: 03/16/2021 [facility] 15 mg 09/10/2020 12:00:00 AM EST tablet 90 TAKE 1 TABLET BY MOUTH ONCE A DAY FOR JOINT PAIN TAKE 1 TABLET BY MOUTH ONCE A DAY FOR JOINT PAIN SOLD: 09/17/2020 [facility] Rosuvastatin calcium 20 MG Oral Tablet ROSUVASTATIN CALCIUM 09/10/2020 12:00:00 AM EST tablet 90 TAKE ONE TABLET BY MOUTH AT BEDTIME TAKE ONE TABLET BY MOUTH AT BEDTIME SOLD: 12/19/2020 [facility] Rosuvastatin calcium 20 MG Oral Tablet ROSUVASTATIN CALCIUM 09/10/2020 12:00:00 AM EST tablet 90 TAKE ONE TABLET BY MOUTH AT BEDTIME TAKE ONE TABLET BY MOUTH AT BEDTIME SOLD: 09/17/2020 [facility] 160-4.5 mcg/actuation 08/15/2020 12:00:00 AM EST HFA aerosol inhaler 10 INHALE TWO PUFFS BY MOUTH TWICE A DAY INHALE TWO PUFFS BY MOUTH TWICE A DAY SOLD: 09/08/2020 [facility] 160-4.5 mcg/actuation 08/15/2020 12:00:00 AM EST HFA aerosol inhaler 10 INHALE TWO PUFFS BY MOUTH TWICE A DAY INHALE TWO PUFFS BY MOUTH TWICE A DAY SOLD: 01/02/2021 [facility] 160-4.5 mcg/actuation 08/15/2020 12:00:00 AM EST HFA aerosol inhaler 10 INHALE TWO PUFFS BY MOUTH TWICE A DAY INHALE TWO PUFFS BY MOUTH TWICE A DAY SOLD: 11/09/2020 [facility] 160-4.5 mcg/actuation 08/15/2020 12:00:00 AM EST HFA aerosol inhaler 10 INHALE TWO PUFFS BY MOUTH TWICE A DAY INHALE TWO PUFFS BY MOUTH TWICE A DAY SOLD: 03/05/2021 [facility] 300 mg 07/18/2020 12:00:00 AM EST capsule 90 TAKE ONE CAPSULE BY MOUTH AT BEDTIME FOR 1 WEEK, THEN 1 CAPSULE TWO TIMES A DAY FOR 1 WEEK, THEN 1 CAPSULE THREE TIMES A DAY TAKE ONE CAPSULE BY MOUTH AT BEDTIME FOR 1 WEEK, THEN 1 CAPSULE TWO TIMES A DAY FOR 1 WEEK, THEN 1 CAPSULE THREE TIMES A DAY SOLD: 07/18/2020 [facility] Citalopram 20 MG Oral Tablet CITALOPRAM HYDROBROMIDE 07/16/2020 12:00:00 AM EST tablet 90 TAKE ONE TABLET BY MOUTH EVERY D AY TAKE ONE TABLET BY MOUTH EVERY DAY SOLD: 10/17/2020 [facility] Citalopram 20 MG Oral Tablet CITALOPRAM HYDROBROMIDE 07/16/2020 12:00:00 AM EST tablet 90 TAKE ONE TABLET BY MOUTH EVERY D AY TAKE ONE TABLET BY MOUTH EVERY DAY SOLD: 07/17/2020 [facility] 0.3 % 05/25/2020 12:00:00 AM EDT drops 5 INSTILL 1 DROP INTO RIGHT EYE FOUR TIMES A DAY DIRECTED INSTILL 1 DROP INTO RIGHT EYE FOUR TIMES A DAY DIRECTED SOLD: 05/28/2020 [facility] 300 mg 05/03/2020 12:00:00 AM EDT capsule 90 TAKE ONE CAPSULE BY MOUTH AT BEDTIME FOR 1 WEEK, THEN 1 CAPSULE TWO TIMES A DAY FOR 1 WEEK, THEN 1 CAPSULE THREE TIMES A DAY TAKE ONE CAPSULE BY MOUTH AT BEDTIME FOR 1 WEEK, THEN 1 CAPSULE TWO TIMES A DAY FOR 1 WEEK, THEN 1 CAPSULE THREE TIMES A DAY SOLD: 06/14/2020 [facility] 4 mg 05/03/2020 12:00:00 AM EDT tablets,dose pack 21 TAKE DIRECTED ON SHEET TAKE DIRECTED ON SHEET SOLD: 05/05/2020 [facility] 300 mg 05/03/2020 12:00:00 AM EDT capsule 90 TAKE ONE CAPSULE BY MOUTH AT BEDTIME FOR 1 WEEK, THEN 1 CAPSULE TWO TIMES A DAY FOR 1 WEEK, THEN 1 CAPSULE THREE TIMES A DAY TAKE ONE CAPSULE BY MOUTH AT BEDTIME FOR 1 WEEK, THEN 1 CAPSULE TWO TIMES A DAY FOR 1 WEEK, THEN 1 CAPSULE THREE TIMES A DAY SOLD: 05/05/2020 [facility] Methylprednisolone 4 MG Oral Tablet [Medrol] Medrol 12:00:00 AM EDT completed [facility] ([facility]) gabapentin 300 MG Oral Capsule Gabapentin 05/02/2020 12:00:00 AM EDT ORAL active [facility] ([facility]) gabapentin 300 MG Oral Capsule Gabapentin 04/27/2020 12:00:00 AM EDT ORAL active [facility] ([facility]) Methylprednisolone 4 MG Oral Tablet [Medrol] Medrol 06/2020 12:00:00 AM EDT active [facility] ( [facility]) pantoprazole 40 MG Delayed Release Oral Tablet PANTOPRAZOLE SODIUM 04/12/2020 12:00:00 AM EDT tablet,delayed release (DR/EC) 90 T BLAIR ONE TABLET BY MOUTH EVERY DAY FOR HEARTBURN/ACID REFLUX TAKE ONE TABLET BY MOUTH EVERY DAY FOR HEARTBURN/ACID REFLUX SOLD: 07/17/2020 [facility] 0.5 mg 09/30/2019 12:00:00 AM EST tablet 180 TAKE TWO TABLETS BY MOUTH AT BEDTIME TAKE TWO TABLETS BY MOUTH AT BEDTIME SOLD: 05/18/2020 [facility] 0.5 mg 09/30/2019 12:00:00 AM EST tablet 180 TAKE TWO TABLETS BY MOUTH AT BEDTIME TAKE TWO TABLETS BY MOUTH AT BEDTIME SOLD: 08/15/2020 [facility] 15 mg 09/08/2019 12:00:00 AM EST tablet 90 TAKE 1 TABLET BY MOUTH ONCE A DAY FOR JOINT PAIN TAKE 1 TABLET BY MOUTH ONCE A DAY FOR JOINT PAIN SOLD: 06/14/2020 [facility] 20 mg 08/29/2019 12:00:00 AM EST tablet 90 TAKE ONE TABLET BY MOUTH AT BEDTIME TAKE ONE TABLET BY MOUTH AT BEDTIME SOLD: 06/14/2020 [facility] 160-4.5 mcg/actuation 08/05/2019 12:00:00 AM EST HFA aerosol inhaler 10 INHALE TWO PUFFS BY MOUTH TWICE A DAY INHALE TWO PUFFS BY MOUTH TWICE A DAY SOLD: 07/18/2020 [facility] 160-4.5 mcg/actuation 08/05/2019 12:00:00 AM EST HFA aerosol inhaler 10 INHALE TWO PUFFS BY MOUTH TWICE A DAY INHALE TWO PUFFS BY MOUTH TWICE A DAY SOLD: 05/12/2020 [facility] Insurance Providers Payer name Policy type / Coverage type Policy ID Covered constitution party ID Covered constitution party's relationship to mckeon Policy Mckeon Plan Information AETNA U [id number] Spouse [id number] [facility] [place] [id number] [place] [id number] AETNA [id number] Suze [id number] Aetna (pr) Medigap Part B [id number] [facility] Medigap Part B [id number] Self [id number] Aetna (pr) Medigap Part B [id number] [facility] ([facility]) Commercial [id number] Self MEDICARE COMPLETE [id number] [facility] MEDICARE [id number] Suze [id number] Aetna Medigap Part B [id number] Family Dependent [id number] [facility] Medicare Solutions Commercial [id number] Self [id number] Aetna Medigap Part B [id number] Family Dependent [id number] [facility] Medicare Solutions Commercial [id number] Self [id number] UHC UNITED MEDICARE COMPLETE G [id number] Self [id number] Aetna Medigap Part B [id number] Family Dependent [id number] [facility] Medicare [employer] Commercial [id number] Self [id number] [facility] Medicare Solutions F [id number] SELF [id number] Aetna [facility] F [id number] SPOUSE [id number] [facility] Commercial [employer]. [id number] Self [id number] A[employer] Commercial [employer]. [id number] Self [id number] [facility]-Medicare Solutions Commercial [id number] Self [id number] Aetna Medigap Part B [id number] 62.0 Self [id number] [facility] [employer] [facility] Covocative [id number] Self [id number] Aetna Medigap Part B [id number] 62.0 Self [id number] [facility] [employer] [facility] Covocative [id number] Self [id number] AETNA PI PI [facility] MEDICARE PI PI [facility]-Medicare Solutions Commercial [id number] Self [id number] [facility]-[employer] Commercial [id number] Self [id number] [facility]-Medic[employer] Commercial [id number] Self [id number] [facility]-Medicare Solutions Commercial [id number] Self [id number] MEDICARE COMPLETE-[facility] O [id number] O [id number] Aetna Medigap Part B [id number] Self [id number] [facility]/Medicare Commercial [id number] Self [id number] Aetna Medigap Part B [id number] Self [id number] [facility]Medicare Commercial [id number] Self [id number] [facility] [id number] Self [id number] MEDICARE COMPLETE [id number] SP [id number] [facility] [employer] Covocative [id number] Self Aetna Medigap Part B [id number] Family Dependent U/ Medicare Solutions Commercial [id number] Self UNITED HEALTHCARE O [id number] S [id number] AETNA [id number] WI2 [id number] Aetna Medigap Part B [id number] Family Dependent [facility] [facility] (HMO) [id number] Self AETNA HEALTHCARE S [id number] P [id number] UNITED HEALTHCARE P [id number] S [id number] MEDICARE COMPLETE [id number] SP [id number] [facility] O [id number] S [id number] MEDICARE COMPLETE [id number] SP [id number] AETNA [place] [id number] [place]2 [id number] MEDICARE COMPLETE UNAVAILABLE SP UNAVAILABLE MEDICARE COMPLETE [id number] SP [id number] AETNA [facility] [place] [id number] WI2 [id number] MEDICARE COMPLETE [id number] SP [id number] AETNA [facility] [place] [id number] WI2 [id number] MEDICARE COMPLETE-[facility] O [id number] S [id number] AETNA [facility] [place] O [id number] S [id number] Aetna Medigap Part B [id number] [facility] [employer] [facility] Commercial [id number] Self [id number] AETNA [id number] 01 [id number] [facility] [place] [id number] 18 [id number] Aetna [facility] Part [facility] [id number] [facility] [employer] MCR Commercial [id number] Self [id number] [employer] MEDICARE COMPLETE [place] [id number] 18 [id number] [facility] [place] [id number] 18 [id number] Aetna Medigap Part B [id number] [facility] [employer] [facility] Commercial [id number] Self [id number] [facility]-Medicare Solutions Commercial [id number] Self [id number] [employer] Commercial [id number] Self [id number] Aetna Medigap Part B [id number] Family Dependent [id number] Problems, Conditions, and Diagnoses Code Display Name Description Problem Type Effective Dates Data Source(s) F32.9 Major depression, single episode Major depression, sin gle episode Problem 03/29/2021 12:00:00 AM EDT [facility] ([facility] I10 Essential hypertension Essential hypertension Problem 03/29/2021 12:00:00 AM EDT [facility] ([facility] E78.2 Mixed hyperlipidemia Mixed hyperlipidemia Problem 03/29/2021 12:00:00 AM EDT [facility] ([facility] J44.9 Chronic obstructive lung disease Chronic obstructive l tu disease Problem 03/29/2021 12:00:00 AM EDT [facility] ([facility] Z87.2 [id number] History of actinic keratoses Problem 12/27/2020 12:00:00 AM EDT eCW1 ([facility]) D22.71 [id number] Melanocytic nevi of right lower limb, inc luding hip Problem 11/29/2020 12:00:00 AM EDT eCW1 ([facility]) L21.9 [id number] Seborrheic dermatitis Problem 11/29/2020 12: 00:00 AM EDT eCW1 ([facility]) D22.72 [id number] Melanocytic nevus of left lower extrem ity Problem 11/29/2020 12:00:00 AM EDT eCW1 ([facility]) L70.0 [id number] [place]edone Problem 11/29/2020 12:00:00 AM ED T eCW1 ([facility]) R06.2 Wheezing Wheezing Problem 06/11/2020 12:00:00 AM ED T [facility] ([facility]) Surgeries/Procedures Procedure Description Date Indications Data Source(s) ECG ROUTINE ECG W/LEAST 12 LDS W/I&R 06/21/2021 12:00: 00 AM EDT [facility] ([facility]) OFFICE OUTPATIENT VISIT 25 MINUTES 06/21/2021 12:00:00 AM EDT [facility] ([facility]) OFFICE OUTPATIENT VISIT 25 MINUTES 04/02/2021 12:00:00 AM EDT [facility] ([facility] OFFICE OUTPATIENT VISIT 25 MINUTES 01/01/2021 12:00:00 AM EDT MED[facility] ([facility], ) Medication: Levulan Kerastick topical (Aminolevulinic Acid) 12/17/2020 12:00:00 AM EDT eCW1 ([facility]) Spirometry 11/15/2020 12:00[facility] OFFICE OUTPATIENT VISIT 25 MINUTES 11/15/2020 12:00:00 AM EDT [facility] ([facility], ) NJX ANES&/STRD W/IMG TFRML EDRL LMBR/SAC 1 LVL 020 12:00:00 AM EST [facility] ([facility] ) Epidurography Radiological Supervision & Interpretation 08/06/2020 12:00:00 AM EST [facility] Moderate Sedation Services; Same Phys Intl 15 Mins; PT >= 5 Years 08/06/2020 12:00:00 AM EST [facility] Bronchoscopy, Rigid Or Flex, Diagnostic W/W/O Cell Washing 06/26/2020 12:00:00 AM EST [facility] ([facility] ) Spirometry 06/11/2020 12:00:00 AM EDT EDENT ([facility]) RADEX SPINE LUMBOSACRAL MINIMUM 4 VIEWS 04/27/2020 12: 00:00 AM EDT [facility] ([facility] ) Results ID Date Data Source [id number] 06/19/2021 10:34:00 AM EDT MED[facility] ([facility], ) Name Value Range Interpretation Code Description Data Macie rce(s) Supporting Document(s) Hemoglobin [Mass/volume] in Blood 9.4 g/dL 13.5-17.5 Below low nor mal [facility] ([facility]) ID Date Data Source [id number] 06/19/2021 10:07:00 AM EDT MED[facility] ([facility]) Name Value Range Interpretation Code Description Data Macie rce(s) Supporting Document(s) PDFReport Laboratory test result MED[facility] ([facility], ) FVC-Pred 3.90 L MED[facility] ([facility]) FVC-%Pred-Pre 60 L [facility] ([facility]) FVC-Pre 2.38 L [facility] ([facility]) FVC-LLN 3.00 L [facility] ([facility]) Fev1-Pred 2.78 L [facility] ([facility]) Fev1-Pre 1.43 L [facility] ([facility]) Fev1-%Pred-Pre 51 L [facility] ([facility]) Fev6-Pred 3.64 L [facility] ([facility]) Fev1-LLN 2.01 L [facility] ([facility]) Ptx8nqh-Hlvk 72 % [facility] ([facility]) Fev6-%Pred-Pre 65 L [facility] ([facility]) Fev6-Pre 2.38 L [facility] ([facility]) Fev6-LLN 2.76 L [facility] ([facility]) Yrh1hwn-Zpz 60 % [facility] ([facility]) Krl7srf-%Pred-Pre 83 % [facility] ([facility]) Pja6jdo-Qpq 100 % [facility] ([facility]) Pje4zsf-Xpwf 93 % [facility] ([facility]) Alz2yad-DQM 62 % [facility] ([facility]) FEFMax-Pred 7.13 L/E/sec [facility] ([facility]) FEFMax-Pre 3.96 L/E/sec [facility] ([facility]) Igq8ted-%Pred-Pre 107 % [facility] ([facility]) FEFMax-%Pred-Pre 55 L/E/sec [facility] ([facility]) Acb3628-Rqul 1.93 L/E/sec [facility] ([facility]) FEFMax-LLN 4.88 L/E/sec [facility] ([facility]) Kwq5834-RYS 0.38 L/E/sec [facility] ([facility]) Bnw8697-Tvy 0.73 L/E/sec [facility] ([facility]) Sap7285-%Pred-Pre 37 L/E/sec [facility] ([facility]) Ban2vaj6-Jqqz 76 % [facility] ([facility]) ExpTime-Pre 6.87 sec [facility] ([facility]) Rrj2acq7-Lpq 60 % [facility] ([facility]) Hpz3vou6-%Pred-Pre 78 % [facility] ([facility]) Wgg0vyp3-XOV 67 % [facility] ([facility]) ID Date Data Source [id number] 05/30/2021 10:30:00 AM EDT [facility] ([facility]) Name Value Range Interpretation Code Description Data Macie rce(s) Supporting Document(s) Hemoglobin [Mass/volume] in Blood 9.5 g/dL 13.5-17.5 Below low nor mal [facility] ([facility]) ID Date Data Source [id number] 06/05/2021 12:18:31 PM EDT [facility] PCName: Kiana MaldonadoeDOB: 2Provider: Krissy Singletary: 05/29/2021 Reason For VisitKiana Mckeon is here today for lumbar spine. Kiana Mckeon is a new patient. xr lsp 05/29/21 imported; mri lsp 05/15/20 by report only. Other DOI/DOO: chronic w/o injury. The patient has not had a course of physical therapy for greater than 4 weeks. The patient has not had a course of NSAIDs for greater than 4 weeks. The patient was notified that the office visit was recorded to enhance documentation accuracy. Patient is retired. History of Present IllnessCHIEF COMPLAINTLow back pain.HISTORY OF PRESENT ILLNESSThe patient is a 81-year-old gentleman who presents for an initial evaluation regarding the lumbar spine. He is here today for an evaluation of his low back pain. It has been a problem for him for several years. He has been following with [facility] and has undergone conservative treatment. He has mostly axial low back pain. He is having some left flank pain. There is minimal leg pain. The pain is intermittent in nature and aggravated with activity. He has no bowel or bladder dysfunction. He has no constitutional symptoms. He has occasional intermittent leg pain. He has had epidural injections. He has also discussed facet injections with pain management physicians. He is taking meloxicam. Results/DataX-rays with 5 views of the lumbar spine including AP, lateral, flexion, extension, and oblique were ordered, obtained, and interpreted in the office today. These show a lumbar degenerative scoliosis. Results/Data OtherMRI report of the lumbar spine previously obtained on 05/15/2020 was reviewed and shows multilevel areas of severe foraminal stenosis at left L4-5, right L3-4, right L2-3, and right L1-2. AssessmentASSESSMENT1. Lumbar degenerative scoliosis.2. Lumbar stenosis with claudication. Plan MRI (SOS) Referral Diagnostic Diagnostic Status: Need Information - FinancialAuthorization Requested for: 29May2021 Ordered;For: Low back pain; Ordered By: Bethel Singletary Performed: Order Comments: Same Day Follow Up, okay to overbook. Due: 12Jun2021; Last Updated By: Gosia Salter; 05/29/2021 2:31:41 PMPatient will follow up with: : Dr. Singletary---okay to overbook same day follow upMRI Ordered Contrast : 01: without gadoLaterality: : _Not Applicable PLANThe patient presents for follow-up of the lumbar spine with symptoms of left flank pain. The patient has tried meloxicam. We reviewed his imaging findings which show lumbar degenerative scoliosis, multilevel areas of severe foraminal stenosis at left L4-5, right L3-4, right L2-3, and right L1-2. We discussed the diagnosis as well as treatment options. At this point, I would recommend an updated MRI of the lumbar spine. The patient will follow up with me afterward for further recommendations. He will continue supportive care in the meantime. The patient understands and agrees with the plan. Scribed by Mary Jo Vicente on 05/30/2021 at 09:40 PM for Bethel Singletary Signatures Electronically signed by : Mary Jo Chatterjee MA; Jun 03 2021 6:24PM EST (Author) Electronically signed by : Bethel Singletary M.D.; Jun 05 2021 12:18PM EST Name Value Range Interpretation Code Description Data Macie rce(s) Supporting Document(s) ID Date Data Source [id number] 05/27/2021 09:13:00 PM EDT [facility] ([facility] Name Value Range Interpretation Code Description Data Macie rce(s) Supporting Document(s) Appearance, Urine RFX Laboratory test result [facility] ([facility] Color, Urine RFX Laboratory test result [facility] ([facility] PH,Urine RFX 5.0 units 5.0-9.0 [facility] ([facility] Protein, Urine Auto RFX Laboratory test result [facility] ([facility] Specific Oto Ur Auto RFX 1.005 1.002-1.035 [facility] ([facility] Glucose, Urine (Ua) Auto RFX Laboratory test result [facility] ([facility] Ketone, Urine Auto RFX Laboratory test result [facility] ([facility] Urobilinogen, Urine Auto RFX 0.2 mg/dL 0.0-2.0 [facility] ([facility] Bilirubin, Urine Auto RFX Laboratory test result [facility] ([facility] Leukocyte Esterase Ur Auto RFX Laboratory test result [facility] ([facility] Nitrite, Urine Auto RFX Laboratory test result [facility] ([facility] WBC, Urine Auto RFX 1 /HPF 0-3 [facility] ([facility] Blood, Urine Blood RFX Laboratory test result [facility] ([facility] RBC, Urine Auto RFX 1 /HPF 0-3 [facility] ([facility] Bacteria, Urine Auto RFX Laboratory test result [facility] ([facility] Squam Epithelial Cell Ur Aurfx 0 /HPF 0-6 [facility] ([facility] Hyaline Cast, Urine Auto RFX 0 /LPF 0-1 [facility] ([facility] ID Date Data Source [id number] 05/27/2021 08:03:00 PM EDT [facility] ([facility] Name Value Range Interpretation Code Description Data Macie rce(s) Supporting Document(s) Lipoprotein lipase [Enzymatic activity/volume] in Serum or P lasma 100 U/L 73-393 [facility] ([facility] ID Date Data Source [id number] 05/27/2021 08:03:00 PM EDT [facility] ([facility] Name Value Range Interpretation Code Description Data Macie rce(s) Supporting Document(s) Glucose, Fasting 87 mg/dL 70-100 [facility] ([facility] Blood Urea Nitrogen 18 mg/dL 7-18 [facility] ([facility] Creatinine For GFR 0.90 mg/dL 0.70-1.30 [facility] ([facility] Sodium Level 143 meq/L 136-145 [facility] ([facility] Glomerular Filtration Rate Laboratory test result [facility] ([facility] <content>Units are mL/min/1.73 m2</content>
<content></content>
<content>Chronic Kidney Disease Staging per NKF:</content>
<content></content>
<content>Stage I & II GFR >=60 Normal to Mildly Decreased</content>
<content>Stage III GFR 30-59 Moderately Decreased</content>
<content>Stage IV GFR 15-29 Severely Decreased</content>
<content>Stage V GFR <15 Very Little GFR Left</content>
<content>ESRD GFR <15 on [employer]</content>
<content></content> Potassium Serum 4.2 meq/L 3.5-5.1 [facility] ([facility] Chloride Level 110 meq/L 98-107 [facility] ([facility] Anion Gap 5 meq/L 8-16 [facility] ([facility] Carbon Dioxide Level 28 meq/L 21-32 [facility] ([facility] Calcium Level 8.7 mg/dL 8.8-10.2 [facility] ([facility] ID Date Data Source [id number] 05/27/2021 08:03:00 PM EDT [facility] ([facility] Name Value Range Interpretation Code Description Data Macie rce(s) Supporting Document(s) Ast/Sgot 19 U/L 7-37 [facility] ([facility] Alkaline Phosphatase 87 U/L 45-117 [facility] ([facility] Alt/SGPT 29 U/L 12-78 [facility] ([facility] Bilirubin,Direct Laboratory test result 0.0-0.2 [facility] ([facility] Bilirubin,Total 0.2 mg/dL 0.2-1.0 [facility] ([facility] Total Protein 6.7 GM/DL 6.4-8.2 [facility] ([facility] Albumin/Globulin Ratio 1.2 [facility] ([facility] Albumin 3.7 GM/DL 3.2-5.2 [facility] ([facility] ID Date Data Source [id number] 05/27/2021 08:03:00 PM EDT [facility] ([facility] Name Value Range Interpretation Code Description Data Macie rce(s) Supporting Document(s) White Blood Count 5.9 10 4.0-10.0 [facility] ([facility] Red Blood Count 3.70 10 4.30-6.10 [facility] ([facility] Hemoglobin 9.8 g/dL 13.5-17.5 [facility] ([facility] Hematocrit 31.8 % 42.0-52.0 [facility] Mean Corpuscular Volume 85.9 fl 80.0-96.0 M [facility] ([facility] Mean Corpuscular Hemoglobin 26.5 pg 27.0-33.0 [facility] ([facility] Red Cell Distribution Width 13.8 % 11.5-14.5 [facility] ([facility] Mean Corpuscular HGB Conc 30.8 g/dL 32.0-36.5 [facility] ([facility] Platelet Count, Automated 265 10 150-450 [facility] ([facility] Neutrophils % 64.6 % 36.0-66.0 [facility] ([facility] Lymph % 19.1 % 24.0-44.0 [facility] ([facility] [place] % 10.3 % 2.0-8.0 [facility] Eos % 5.0 % 0.0-3.0 [facility] Baso % 0.7 % 0.0-1.0 [facility] Immature Granulocyte % 0.3 % 0-3.0 [facility] ([facility] Nucleated Red Blood Cell % 0.0 % 0-0 [facility] ([facility] Neutrophils # 3.8 10 1.5-8.5 [facility] ([facility] Lymph # 1.1 10 1.5-5.0 [facility] [place] # 0.6 10 0.0-0.8 [facility] Eos # 0.3 10 0.0-0.5 [facility] Baso # 0.0 10 0.0-0.2 [facility] ID Date Data Source [id number] 04/19/2021 10:58:00 AM EDT [facility] ([facility]) Name Value Range Interpretation Code Description Data Macie rce(s) Supporting Document(s) Hemoglobin [Mass/volume] in Blood 10.2 g/dL 13.5-17.5 Below low nor mal [facility] ([facility]) ID Date Data Source [id number] 03/24/2021 10:10:00 AM EDT [facility] ([facility] Name Value Range Interpretation Code Description Data Macie rce(s) Supporting Document(s) Laboratory test finding (navigational concept) 31.0 % 38.0-51.0 [facility] ([facility] Laboratory test finding (navigational concept) 72 mg/dL 70-105 [facility] ([facility] Laboratory test finding (navigational concept) 142 meq/L 136-145 [facility] ([facility] Laboratory test finding (navigational concept) 4.6 mg/dL 4.5-5.3 [facility] ([facility] Laboratory test finding (navigational concept) 4.0 meq/L 3.5-5.1 [facility] ([facility] Laboratory test finding (navigational concept) 108 meq/L 98-109 [facility] ([facility] Laboratory test finding (navigational concept) 23.0 MM/L 23.0-27.0 [facility] ([facility] Laboratory test finding (navigational concept) 23 mg/dL 8-26 [facility] ([facility] Laboratory test finding (navigational concept) 0.8 mg/dL 0.6-1.3 [facility] ([facility] ID Date Data Source [id number] 02/28/2021 10:22:00 AM EDT [facility] ([facility]) Name Value Range Interpretation Code Description Data Macie rce(s) Supporting Document(s) Hemoglobin [Mass/volume] in Blood 10.4 g/dL 13.5-17.5 Below low nor mal [facility] ([facility]) ID Date Data Source [id number] 01/30/2021 10:20:[address] [facility] ([facility]) Name Value Range Interpretation Code Description Data Macie rce(s) Supporting Document(s) Hemoglobin A1c 6.0 % Normal (applies to non-numeric r esults) [facility]) <content>REFERENCE RANGES:</content><br/ ><content></content>
<content><=5.6% NORMAL</content>
<content>5.7-6.4% SUGGESTS IMPAIRED GLUCOSE METABOLISM/PREDIABETIC</content>
<content>>= 6.5% ABNORMAL</content>
<content></content> Estimated Average Glucose 126 mg/dL 60-110 Above high normal [facility] ([facility]) ID Date Data Source [id number] 01/01/2021 01:35:[address] [facility] ([facility]) Name Value Range Interpretation Code Description Data Macie rce(s) Supporting Document(s) White Blood Count 4.9 10 4.0-10.0 Normal (applies to non-numeri c results) [facility] Hematocrit 35.8 % 42.0-52.0 Below low normal [facility] ( [facility]) Red Blood Count 3.85 10 4.30-6.10 Below low normal [facility] ([facility]) Hemoglobin 11.4 g/dL 13.5-17.5 Below low normal [facility] ( [facility]) Mean Corpuscular HGB Conc 31.8 g/dL 32.0-36.5 Below low normal [facility] ([facility]) Mean Corpuscular Hemoglobin 29.6 pg 27.0-33.0 Norm al (applies to non-numeric results) [facility] ([facility]) Mean Corpuscular Volume 93.0 fl 80.0-96.0 Normal ( applies to non-numeric results) [facility] ([facility]) Platelet Count, Automated 284 10 150-450 Normal (applies to non-numeric results) [facility]) Red Cell Distribution Width 12.7 % 11.5-14.5 Norm al (applies to non-numeric results) [facility]) Nucleated Red Blood Cell % 0.0 % 0-0 Normal (applies to n on-numeric results) [facility]) ID Date Data Source [id number] 01/01/2021 01:35:00 PM EDT [facility]) Name Value Range Interpretation Code Description Data Macie rce(s) Supporting Document(s) Creatinine For GFR 0.92 mg/dL 0.70-1.30 Normal (applies to non -numeric results) [facility] ([facility]) Glomerular Filtration Rate Laboratory test result Normal (applies to non- numeric results) [facility]) <content>Units are mL/min/1.73 m2</content>
<content></content>
<content>Chronic Kidney Disease Staging per NKF:</content>
<content></content>
<content>Stage I & II GFR >=60 Normal to Mildly Decreased</content>
<content>Stage III GFR 30- 59 Moderately Decreased</content>
<content>Stage IV GFR 15-29 Severely Decreased</content>
<content>Stage V GFR <15 Very Little GFR Left</content>
<content>ESRD GFR <15 on [employer]ELTING</content>
<content></content> ID Date Data Source [id number] 01/01/2021 01:35:00 PM EDT [facility]) Name Value Range Interpretation Code Description Data Macie rce(s) Supporting Document(s) Urea nitrogen [Mass/volume] in Serum or Plasma 19 mg/dL 7-18 Above high normal [facility]) ID Date Data Source [id number] 11/15/2020 12:01:[address] [facility] ([facility]) Name Value Range Interpretation Code Description Data Macie rce(s) Supporting Document(s) Glomerular Filtration Rate Laboratory test result Normal (applies to non- numeric results) [facility] ([facility]) <content>Units are mL/min/1.73 m2</content>
<content></content>
<content>Chronic Kidney Disease Staging per NKF:</content>
<content></content>
<content>Stage I & II GFR >=60 Normal to Mildly Decreased</content>
<content>Stage III GFR 30- 59 Moderately Decreased</content>
<content>Stage IV GFR 15-29 Severely Decreased</content>
<content>Stage V GFR <15 Very Little GFR Left</content>
<content>ESRD GFR <15 on [employer]EL[employer]</content>
<content></content> Creatinine For GFR 0.83 mg/dL 0.70-1.30 Normal (applies to non -numeric results) [facility] ([facility]) ID Date Data Source [id number] 11/15/2020 12:01:[address] [facility] ([facility]) Name Value Range Interpretation Code Description Data Macie rce(s) Supporting Document(s) Urea nitrogen [Mass/volume] in Serum or Plasma 29 mg/dL 7-18 Above high normal [facility] ([facility]) ID Date Data Source [id number] 11/15/2020 11:29:[address] [facility] ([facility]) Name Value Range Interpretation Code Description Data Macie rce(s) Supporting Document(s) PDFReport Laboratory test result [facility] ([facility]) FVC-Pre 2.91 L [facility] ([facility]) FVC-Pred 3.95 L [facility] ([facility]) FVC-%Pred-Pre 73 L [facility] ([facility]) Fev1-Pred 2.82 L [facility] ([facility], ) FVC-LLN 3.04 L [facility] ([facility], ) Fev1-Pre 1.91 L [facility] ([facility]) Fev1-%Pred-Pre 67 L [facility] ([facility]) Fev1-LLN 2.05 L [facility] ([facility], ) Fev6-Pred 3.68 L [facility] ([facility]) Fev6-Pre 2.91 L [facility] ([facility]) Fev6-%Pred-Pre 79 L [facility] ([facility]) Fev6-LLN 2.80 L [facility] ([facility]) Waw1pao-Lajd 72 % [facility] ([facility]) Jli8rff-Rqy 66 % [facility] ([facility]) Skg1evh-%Pred-Pre 91 % [facility] ([facility]) Wio8gvh-MER 62 % [facility] ([facility]) Nqc1mug-%Pred-Pre 107 % [facility] ([facility]) Zsq9reg-Mth 100 % [facility] ([facility]) Vfk5vhl-Ugxc 93 % [facility] ([facility]) FEFMax-%Pred-Pre 54 L/E/sec [facility] ([facility]) FEFMax-Pred 7.26 L/E/sec [facility] ([facility]) FEFMax-Pre 3.92 L/E/sec [facility] ([facility]) FEFMax-LLN 5.00 L/E/sec [facility] ([facility]) Hez6636-Ybp 1.10 L/E/sec [facility] ([facility]) Ipk4432-Mypf 1.98 L/E/sec [facility] ([facility]) ExpTime-Pre 5.83 sec [facility] ([facility]) Rww3819-YXV 0.43 L/E/sec [facility] ([facility], ) Spc1760-%Pred-Pre 55 L/E/sec [facility] ([facility]) Mvk0tps5-%Pred-Pre 85 % [facility] ([facility]) Nml7mua9-Mwij 77 % [facility] ([facility]) Get1yun3-Pha 66 % [facility] ([facility]) Vyo1pjb5-IDU 68 % [facility] ([facility]) ID Date Data Source [id number] 10/22/2020 03:57:00 PM EST [facility] ([facility]) Name Value Range Interpretation Code Description Data Macie rce(s) Supporting Document(s) Laboratory test finding (navigational concept) Laboratory test result [facility] ([facility]) ID Date Data Source [id number] 08/01/2020 01:00:00 PM EST [facility] ([facility]) Name Value Range Interpretation Code Description Data Macie rce(s) Supporting Document(s) Coronavirus 2019 Nasopharygeal Laboratory test result [facility] ([facility]) This nucleic acid amplification test was developed and its performance characteristics determined by [employer]. Nucleic acid amplification tests include PCR and TMA. This test has not been FDA cleared or approved. This test has been authorized by FDA under an Emergency Use Authorization (EUA). This test is only authorized for the duration of time the declaration that circumstances exist justifying the authorization of the emergency use of in vitro diagnostic tests for detection of SARS-CoV-2 virus and/or diagnosis of COVID-19 infection under section 564(b)(1) of the Act, 21 U.S.C. 360bbb-3 (b) (1), unless the authorization is terminated or revoked sooner. When diagnostic testing is negative, the possibility of a false negative result should be considered in the context of a patient's recent exposures and the presence of clinical signs and symptoms consistent with COVID-19. An individual without symptoms of COVID-19 and who is not shedding SARS-CoV-2 virus would expect to have a negative (not detected) result in this assay. Performed at: [facility], [place], [place] [id number] Leather Patcher: Virgie Bear PhD, Phone: [phone] Not Detected ID Date Data Source [id number] 08/01/2020 01:00:00 PM EST [facility] Name Value Range Interpretation Code Description Data Macie rce(s) Supporting Document(s) SARS coronavirus 2 RNA [facility] This lab was ordered by [facility] and reported by [facility]. ID Date Data Source [id number] 07/31/2020 09:59:00 AM EST [facility] ([facility]) Name Value Range Interpretation Code Description Data Macie rce(s) Supporting Document(s) Prothrombin time (PT) Laboratory test result [facility] ([facility]) ID Date Data Source [id number] 07/31/2020 09:59:00 AM EST [facility] ([facility]) Name Value Range Interpretation Code Description Data Macie rce(s) Supporting Document(s) Platelets [#/volume] in Blood by Automated count 229 10 150-450 [facility] ([facility]) ID Date Data Source [id number] 07/31/2020 09:59:00 AM EST [facility] ([facility]) Name Value Range Interpretation Code Description Data Macie rce(s) Supporting Document(s) Prothrombin Time 12.4 s 12.5-14.3 [facility] ([facility]) Inr 0.91 [facility] ([facility]) THERAPUTIC HUMAN INR VALUES INDICATIONS NORMAL RANGES PROPHYLAXIS/TREATMENT OF: VENOUS THROMBOSIS 2.0-3.0 PULMONARY EMBOLISM 2.0-3.0 PREVENTION OF SYSTEMIC EMBOLISM FROM: TISSUE HEART VALVES 2.0-3.0 ACUTE MYOCARDIAL INFARCTION 2.0-3.0 VALVULAR HEART DISEASE 2.0-3.0 ATRIAL FIBRILLATION 2.0-3.0 MECHANICAL VALVES(HIGH RISK) 2.5-3.5 RECURRENT MYOCARDIAL INFARCTION 2.5-3.5 Partial Thromboplastin Time 29.6 s 24.2-38.5 [facility] ([facility]) ID Date Data Source [id number] 06/21/2020 12:00:00 PM EST [facility] Name Value Range Interpretation Code Description Data Macie rce(s) Supporting Document(s) SARS coronavirus 2 RNA [facility] This lab was ordered by [facility] and reported by [facility]. ID Date Data Source [id number] 06/11/2020 08:40:00 AM EDT [facility] ([facility], ) Name Value Range Interpretation Code Description Data Macie rce(s) Supporting Document(s) PDFReport Laboratory test result [facility] ([facility], ) \\\\Testing-PC\\[id number] FVC-Pred 3.95 L [facility] ([facility], ) FVC-%Pred-Pre 77 L [facility] ([facility]) FVC-Pre 3.04 L [facility] ([facility]) FVC-LLN 3.04 L [facility] ([facility]) Fev1-Pred 2.82 L [facility] ([facility]) Fev1-Pre 1.94 L [facility] ([facility]) Fev6-Pred 3.68 L [facility] ([facility]) Fev1-%Pred-Pre 68 L [facility] ([facility]) Fev1-LLN 2.05 L [facility] ([facility]) Fev6-%Pred-Pre 81 L [facility] ([facility]) Fev6-Pre 3.01 L [facility] ([facility]) Fev6-LLN 2.80 L [facility] ([facility]) Xfg9lup-Qcfz 72 % [facility] ([facility]) Hda9jkz-Sjk 64 % [facility] ([facility]) Hti4spw-%Pred-Pre 88 % [facility] ([facility]) Uek8sci-Lovq 93 % [facility] ([facility]) Jxd2szf-PUP 62 % [facility] ([facility]) Mha6kni-%Pred-Pre 106 % [facility] ([facility]) Lxx7byp-Hlr 99 % [facility] ([facility]) FEFMax-Pre 4.43 L/E/sec [facility] ([facility]) FEFMax-Pred 7.26 L/E/sec [facility] ([facility], ) FEFMax-LLN 5.00 L/E/sec [facility] ([facility]) FEFMax-%Pred-Pre 61 L/E/sec [facility] ([facility], ) Xxe9849-Pwuj 1.98 L/E/sec [facility] ([facility]) Hxu2688-Htf 1.04 L/E/sec [facility] ([facility]) Whv7428-%Pred-Pre 52 L/E/sec [facility] ([facility]) Qgr1124-YLL 0.43 L/E/sec [facility] ([facility], ) ExpTime-Pre 6.52 sec [facility] ([facility]) Iut7afq7-Wiw 64 % [facility] ([facility]) Eqo3wwe1-Yxxw 77 % [facility] ([facility], ) Xdb0tpn8-ZNK 68 % [facility] ([facility]) Rbz7skq9-%Pred-Pre 84 % [facility] ([facility]) ID Date Data Source [id number] 05/15/2020 12:00:00 AM EDT [facility] Patient Name: KIANA MCKEON [address] [place] [address] Date [facility] : 1940[facility] [place] [address] Date of Exam: 05/15/2020#: Fax: [phone] EXAM: MRI LUMBAR SPINE WITHOUT CONTRASTPROCEDURE INFORMATION:Exam: MR Lumbar Spine Without Contrast.Exam date and time: 05/15/2020 12:54 PM Age: 80 years oldClinical indication: Pain; Lumbago with sciatica; BilateralTECHNIQUE: Imaging protocol: Multiplanar magnetic resonance images of thelumbar spine without intravenous contrast.COMPARISON: MRI LUMBAR SPINE WITHOUT&WITH CONTRAST 06/15/2014 10:26 AMFINDINGS: Slight reversed S-shaped scoliosis of the lumbar spine. Lumbarvertebral body heights are maintained. Multilevel Modic type 1 edematousdegenerative endplate changes. No evidence of acute lumbar spine fracture.No cord compression. Stepwise 0.2 cm retrolisthesis of T12 on L1, L1 on L2,and L2 on L3. No abnormal cord signal. Conus medullaris terminates at theL1 level. Paravertebral soft tissues are unremarkable.L1-L2: Broad-based disc bulge and facet hypertrophy cause mild canalnarrowing with moderate left and severe right foraminal narrowing.L2-L3: Broad-based disc bulge and facet hypertrophy cause mild to moderatecanal narrowing. Mild left and severe right foraminal narrowing.L3-L4: Broad-based disc bulge and facet hypertrophy cause mild canalnarrowing. Moderate left and severe right foraminal narrowing withcompression of the exiting right L3 nerve root.L4-L5: Broad-based disc bulge and facet hypertrophy cause mild canalnarrowing. 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 Electronically Signed - EUSEBIO 05/16/20 9:06 Name Value Range Interpretation Code Description Data Macie rce(s) Supporting Document(s) Procedure Social History Code Duration Value Status Description Data Source(s ) Smoking 06/21/2021 12:00:00 AM EDT Patient is a former smoker completed Patient is a former smoker [facility] ([facility]) Smoking 06/19/2021 12:00:00 AM EDT Patient is a former smoker completed [facility] is a [facility] Smoking 01/22/2021 12:00:00 AM EDT Former Smoker completed Former Smoker eCW1 ([facility]) Smoking 12/17/2020 12:00:00 AM EDT Former Smoker completed Former Smoker eCW1 ([facility]) Smoking 12/17/2020 12:00:00 AM EDT Former Smoker completed Former Smoker eCW1 ([facility]) Vital Signs ID Date Data Source [id number] Name Value Range Interpretation Code Description Data Source(s) Body weight 178.00 [lb_av] 178.00 [lb_av] [facility] T ([facility]) Body height 71 [in_i] 71 [in_i] [facility] 5'11" Body mass index (BMI) [Ratio] 24.8 kg/m2 24.8 k g/m2 [facility] ([facility]) Heart rate 61 /min 61 /min [facility] ([facility]) Respiratory rate 14 /min 14 /min [facility]) Systolic blood pressure--sitting 118 mm[Hg] 118 mm[Hg] [facility] ([facility]) Ra, medium cuff Diastolic blood pressure--sitting 72 mm[Hg] 72 mm[Hg] [facility]) Ra, medium cuff Oxygen saturation in Arterial blood by Pulse oximetry 98 % 98 % [facility]) Body surface area Derived from formula 1.97 m2 [address] [facility] ([facility], ) Oxygen saturation in Arterial blood by Pulse oximetry 99 % 99 % [facility] ([facility], ) Heart rate 64 /min 64 /min [facility] ) Systolic blood pressure 110 mm[Hg] 110 mm[Hg] M [facility] ([facility], ) Diastolic blood pressure 74 mm[Hg] 74 mm[Hg] [facility] ([facility]) Body height 69 [in_i] 69 [in_i] [facility] ([facility]) 5'9" Body weight 179.00 [lb_av] 179.00 [lb_av] MED[facility] T ([facility]) Body mass index (BMI) [Ratio] 26.4 kg/m2 26.4 k g/m2 [facility] ([facility]) [place] body weight 160 [lb_av] 160 [lb_av] [facility] T ([facility]) Body weight 81.194 kg 81.194 kg [facility] ([facility]) Systolic blood pressure 120 mm[Hg] 120 mm[Hg] M [facility]ENT ([facility] Diastolic blood pressure 55 mm[Hg] 55 mm[Hg] [facility] ([facility] Heart rate 63 /min 63 /min [facility] ([facility] Body weight 181.00 [lb_av] 181.00 [lb_av] [facility] T ([facility] Body height 71 [in_i] 71 [in_i] [facility] ([facility] 5'11" Oxygen saturation in Arterial blood by Pulse oximetry 98 % 98 % [facility] ([facility] [place] body weight 172 [lb_av] 172 [lb_av] MED[facility] T ([facility] Body mass index (BMI) [Ratio] 25.2 kg/m2 25.2 k g/m2 [facility] ([facility] Body temperature 97.0 [degF] 97.0 [degF] [facility] ([facility] Respiratory rate 17 /min 17 /min [facility] ( [facility] Body weight 176.0 [lb_av] 176.0 [lb_av] eCW1 ([facility]) Body height [in_i] eCW1 ([facility]) Body mass index (BMI) [Ratio] 24.54 kg/m2 24.54 kg/m2 eCW1 ([facility]) Systolic blood pressure 128 mm[Hg] 128 mm[Hg] e CW1 ([facility]) Diastolic blood pressure 74 mm[Hg] 74 mm[Hg] eCW1 ([facility]) Oxygen saturation in Arterial blood by Pulse oximetry 97 % 97 % [facility] ([facility]) Body temperature 97.7 [degF] 97.7 [degF] [facility] ([facility]) Body mass index (BMI) [Ratio] 26.4 kg/m2 26.4 k g/m2 [facility] ([facility]) [place] body weight 160 [lb_av] 160 [lb_av] MED[facility] T ([facility]) Body weight 81.194 kg 81[address] [facility] ([facility]) Body surface area Derived from formula 1.97 m2 [address] [facility] ([facility]) Body mass index (BMI) [Ratio] 26.4 kg/m2 26.4 k g/m2 [facility] ([facility]) Body height 69 [in_i] 69 [in_i] [facility] ([facility]) 5'9" Body weight 179.00 [lb_av] 179.00 [lb_av] [facility] Systolic blood pressure 120 mm[Hg] 120 mm[Hg] [facility] ([facility]) Diastolic blood pressure 60 mm[Hg] 60 mm[Hg] [facility] ([facility]) Heart rate 68 /min 68 /min [facility] ([facility]) Body temperature 97.7 [degF] 97.7 [degF] [facility] ([facility]) Oxygen saturation in Arterial blood by Pulse oximetry 97 % 97 % [facility] ([facility]) Body height 69 [in_i] 69 [in_i] [facility] 5'9" Body weight 179.00 [lb_av] 179.00 [lb_av] [facility] T ([facility]) [place] body weight 160 [lb_av] 160 [lb_av] [facility] T ([facility]) Body surface area Derived from formula 1.97 m2 [address] [facility] ([facility]) Body weight 81.194 kg [address] [facility] ([facility]) Body height [in_i] eCW1 ([facility]) Systolic blood pressure 130 mm[Hg] 130 mm[Hg] e CW1 ([facility]) Diastolic blood pressure 78 mm[Hg] 78 mm[Hg] eCW1 ([facility]) Body weight 180 [lb_av] 180 [lb_av] eCW1 ([facility]) Body mass index (BMI) [Ratio] 25.10 kg/m2 25.10 kg/m2 W1 ([facility]) Body weight 182.0 [lb_av] 182.0 [lb_av] eCW1 ([facility]) Body height [in_i] eCW1 ([facility]) Body mass index (BMI) [Ratio] 25.38 kg/m2 25.38 kg/m2 eCW1 ([facility]) Systolic blood pressure 116 mm[Hg] 116 mm[Hg] e CW1 ([facility]) Diastolic blood pressure 74 mm[Hg] 74 mm[Hg] eCW1 ([facility]) [place] body weight 160 [lb_av] 160 [lb_av] MEDEN T ([facility]) Body weight 82.555 kg [address] [facility] ([facility]) Body surface area Derived from formula 1.98 m2 [address] [facility] ([facility]) Body height 69 [in_i] 69 [in_i] [facility] ([facility]) 5'9" Body mass index (BMI) [Ratio] 26.9 kg/m2 26.9 k g/m2 [facility] ([facility]) Oxygen saturation in Arterial blood by Pulse oximetry 98 % 98 % [facility] ([facility]) Body temperature 96.0 [degF] 96.0 [degF] [facility] ([facility]) Body weight 182.00 [lb_av] 182.00 [lb_av] MEDEN T ([facility]) Systolic blood pressure 120 mm[Hg] 120 mm[Hg] [facility] Diastolic blood pressure 82 mm[Hg] 82 mm[Hg] [facility] ([facility]) Heart rate 60 /min 60 /min [facility] ([facility]) Oxygen saturation in Arterial blood by Pulse oximetry 98 % 98 % [facility] ([facility]) Body temperature 96.0 [degF] 96.0 [degF] [facility] ([facility]) Body height 69 [in_i] 69 [in_i] [facility] ([facility]) 5'9" Body weight 182.00 [lb_av] 182.00 [lb_av] MEDEN T ([facility]) Body mass index (BMI) [Ratio] 26.9 kg/m2 26.9 k g/m2 [facility] ([facility]) [place] body weight 160 [lb_av] 160 [lb_av] [facility] Body weight 82.555 [address] [facility] ([facility]) Body surface area Derived from formula 1.98 m2 [address] [facility] ([facility]) Systolic blood pressure 118 mm[Hg] 118 mm[Hg] [facility] Diastolic blood pressure 70 mm[Hg] 70 mm[Hg] [facility] ([facility]) Heart rate 70 /min 70 /min [facility] ([facility]) Oxygen saturation in Arterial blood by Pulse oximetry 96 % 96 % [facility] ([facility]) Room Air Body height 69 [in_i] 69 [in_i] [facility] ([facility]) 5'9" Body weight 184.00 [lb_av] 184.00 [lb_av] MEDEN T ([facility]) Body mass index (BMI) [Ratio] 27.2 kg/m2 27.2 k g/m2 [facility] ([facility]) [place] body weight 160 [lb_av] 160 [lb_av] MEDEN T ([facility]) Body weight 83.462 kg 83.462 kg [facility]ENT ([facility]) Body surface area Derived from formula 1.99 m2 [address] [facility] ([facility]) Body temperature 97.3 [degF] 97.3 [degF] MEDENT ([facility]) Body height 69 [in_i] 69 [in_i] [facility] ([facility]) 5'9" Body weight 182.12 [lb_av] 182.12 [lb_av] MEDEN T ([facility]) Body mass index (BMI) [Ratio] 26.9 kg/m2 26.9 k g/m2 [facility] Heart rate 65 /min 65 /min [facility] ([facility]) Oxygen saturation in Arterial blood by Pulse oximetry 98 % 98 % [facility] ([facility]) Body temperature 97.4 [degF] 97.4 [degF] [facility] ([facility]) Body height 69 [in_i] 69 [in_i] [facility] ([facility]) 5'9" Body weight 185.00 [lb_av] 185.00 [lb_av] MED[facility] T ([facility]) Body mass index (BMI) [Ratio] 27.3 kg/m2 27.3 k g/m2 [facility] ([facility]) [place] body weight 160 [lb_av] 160 [lb_av] MEDEN T ([facility]) Body weight 83.916 kg 83.[address] [facility] ([facility]) Systolic blood pressure 120 mm[Hg] 120 mm[Hg] M EDENT ([facility]) Diastolic blood pressure 70 mm[Hg] 70 mm[Hg] WEI ([facility], ) Body temperature 97.0 [degF] 97.0 [degF] [facility] ([facility]) Body height 71 [in_i] 71 [in_i] [facility] ([facility]) 5'11" Body weight 180.00 [lb_av] 180.00 [lb_av] JAQUELINE Berg ([facility]) Body mass index (BMI) [Ratio] 25.1 kg/m2 25.1 k g/m2 [facility] ([facility])
--- NOTE | 2021-06-25 19:50 | ECGEPIP ---
[facility] - ED Test Date: 2021-06-25 Pat Name: KIANA MCKEON Department: Room: - Gender: Male [employer]: : 1940 Requested By: PATTY Avitia PA-C Order Number: [id number] Reading MD: Ruben Dixon Measurements Intervals [place] Rate: 61 P: 6 MO: 150 QRS: 9 QRSD: 98 T: 44 QT: 436 QTc: 438 Interpretive Statements Normal sinus rhythm Nonspecific ST T wave changes low QRS voltage limb leads cw 06/26/[address] T wave changes Electronically Signed on 06-25-2021 19:50:20 EST by Ruben Dixon
[2021-06-25] MEDS ORDERED: ISOVUE-370 76% 100ML VIAL As Ordered ONE (20:09)
[2021-06-25 20:49] LABS: RSV AMPLIFICATION NEGATIVE (NEGATIVE)
--- NOTE | 2021-06-25 20:55 | REPVR ---
PROCEDURE INFORMATION: Exam: CTA Chest With Contrast Exam date and time: 06/25/2021 8:13 PM Age: 81 years old Clinical indication: Abnormal findings; Abnormal diagnostic tests; Elevated d-dimer; Additional info: R/O pe, elevated dimer TECHNIQUE: Imaging protocol: Computed tomographic angiography of the chest with contrast. 3D rendering (Not supervised by radiologist): MIP and/or 3D reconstructed images were created by the technologist. Radiation optimization: All CT scans at this facility use at least one of these dose optimization techniques: automated exposure control; mA and/or kV adjustment per patient size (includes targeted exams where dose is matched to clinical indication); or iterative reconstruction. Contrast material: ISOVUE 370; Contrast volume: 75 ml; Contrast route: INTRAVENOUS (IV); COMPARISON: CT ANGIO CHEST 11/15/2020 3:21 PM FINDINGS: Pulmonary arteries: There are no pulmonary emboli. 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 maximally. There is no dissection or saccular component. Other arteries: There is mild atherosclerosis in the thoracic aorta. Lungs: Stable chronic pleuroparenchymal changes demonstrated at the left lung base. Stable noncalcified 3.7 mm noncalcified nodule in the superior segment of the right lower lobe. Finding likely postinflammatory. No follow-up suggested according to Fleischner guidelines. Pleural spaces: Unremarkable. No pneumothorax. No pleural effusion. Heart: Unremarkable. No cardiomegaly. No pericardial effusion. Lymph nodes: Unremarkable. No enlarged lymph nodes. Diaphragm: A large hiatal hernia is present. Bones/joints: The spine demonstrates mild degenerative changes. Soft tissues: Unremarkable. IMPRESSION: 1. Stable noncalcified 3.7 mm noncalcified nodule in the superior segment of the right lower lobe. Finding likely postinflammatory. No follow-up suggested according to Fleischner guidelines. 2. A large hiatal hernia is present. 3. 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 maximally. There is no dissection or saccular component. 4. There are no pulmonary emboli. 5. No acute pulmonary parenchymal abnormalities. Electronically signed by: Darrin Gardner On 06/25/2021 20:54:37 PM
--- OUTSIDE RECORDS SUMMARY | 2021-06-25 21:25 | CCD ---
Author Author [facility] Organization [facility] Address Unknown Phone Unavailable Care Team Providers Care Bank Compliance Officer Name Role Phone Biju Kathryn [facility], PA-C Unavailable Unavailabl e Fish, [facility], PA-C Unavailable Unavailabl e Fish, [facility], PA-C Unavailable Unavailabl e Fish, [facility], PA-C Unavailable Unavailabl e Fish, [facility], PA-C Unavailable Unavailabl e Fish, [facility], PA-C Unavailable Unavailabl e Fish, [facility], PA-C Unavailable Unavailabl e Fish, [facility], PA-C Unavailable Unavailabl e Fish, [facility], PA-C Unavailable Unavailabl e Fish, [facility], PA-C Unavailable Unavailabl e Fish, [facility], PA-C Unavailable Unavailabl e Fish, [facility], PA-C Unavailable Unavailabl e Fish, [facility], PA-C Unavailable Unavailabl e Fish, [facility], PA-C Unavailable Unavailabl e Fish, [facility], PA-C Unavailable Unavailabl e Fish, [facility], PA-C Unavailable Unavailabl e Fish, [facility], PA-C Unavailable Unavailabl e Fish, [facility], PA-C Unavailable Unavailabl e Fish, [facility], PA-C Unavailable Unavailabl e Fish, [facility], PA-C Unavailable Unavailabl e Fish, [facility], PA-C Unavailable Unavailabl e Fish, [facility], PA-C Unavailable Unavailabl e Fish, [facility], PA-C Unavailable Unavailabl e Fish, [facility], PA-C Unavailable Unavailabl e Fish, [facility], PA-C Unavailable Unavailabl e Fish, [facility], PA-C Unavailable Unavailabl e Fish, [facility], PA-C Unavailable Unavailabl e Fish, [facility], PA-C Unavailable Unavailabl e Fish, [facility], PA-C Unavailable Unavailabl e Fish, [facility], PA-C Unavailable Unavailabl e Fish, [facility], PA-C Unavailable Unavailabl e Fish, [facility], PA-C Unavailable Unavailabl e Fish, [facility], PA-C Unavailable Unavailabl e Fish, [facility], PA-C Unavailable Unavailabl e Fish, [facility], PA-C Unavailable Unavailabl e Fish, [facility], PA-C Unavailable Unavailabl e Mandappa, Sboia CASAC Unavailable Unavailable Mandappa, Sobia CASAC Unavailable [...] Soraida HUGO MD Unavailable Unavailable GEMINI, Soraida UHGO MD Unavailable Unavailable GEMINI, Soraida HUGO MD [...] Annie GROSSMAN Unavailable Unavailable Rachid, A Annie RGOSSMAN Unavailable Unavailable Rachid, A Annie GROSSMAN Unavailable [...] is protected by Article 27-F of the [facility] Public Health law. If you continue you may have access to information: Regarding HIV / AIDS; Provided by facilities licensed or operated by the [facility] Office of Mental Health; or Provided by the [facility] Office for People With Developmental Disabilities. If such information is present, then the following [facility] mandated warning applies: This information has been [...] law may result in a fine or mcfp sentence or both. A general authorization for the release of medical or other information is NOT sufficient authorization for further disc losure. Family History Family Member Name Family Member Gender Family Member Status Date o f Status Description Data Source(s) Unknown Unknown Problem [facility] ([facility]) Unknown Male Problem MEDENT ([facility]) () Unknown Male Problem [facility] ([facility] Unknown Unknown Problem [facility] ([facility] Encounters Encounter Providers Location Date Indications Data Source(s ) Outpatient Attender: IAN HERNANDEZ Main Office 06/21/2021 1 0:45:00 AM EDT MED[facility] ([facility]) Outpatient Attender: BETHEL SINGLETARY MDReferrer: Sobia smitha CASAC 06/05/2021 12:18:31 PM EDT [facility] Recurring Patient Referrer: Annie Rashid MD 05/29/2021 0 1:26:00 PM EDT [facility] Recurring Patient Referrer: Annie Rashid MD 05/29/2021 0 1:25:51 PM EDT [facility] Recurring Patient Referrer: Sobia Alaniz CASAC 04/09/2021 09:25:50 AM EDT [facility] Outpatient Attender: Annie Rashid MD Main Office 04/02/2021 09:30:0 0 AM EDT MED[facility] ([facility] Recurring Patient Referrer: Sobia Alaniz CASAC 03/25/2021 02:06:29 PM EDT [facility] Recurring Patient Referrer: Sobia Alaniz YU 03/25/2021 02:06:13 PM EDT [facility] Office Visit, Est Pt., Level 3 PC [address] [place] [address] 01/22/2021 12:00:00 AM EDT eCW1 ([facility]) Outpatient Attender: PARTICE MERCER DO [place] 01/01/2021 01:30:00 PM EDT [facility] ([facility] (DRMPDT) [facility] [address] [place] [id number] 12/17/2020 12:00:00 AM EDT eCW1 ([facility]) Outpatient Attender: TATIANA BLACK RPA 12/15 05:49:46 PM EDT - 12/15/2020 07:21:05 PM EDT [facility] ([facility] ) Office Visit, Est Pt., Level 4 PC [address] [place] [address] 11/29/2020 12:00:00 AM EDT eCW1 ([facility]) Outpatient Attender: PATRICE MERCER DO [place] 11/15/2020 11:30:00 AM EDT [facility] ([facility]) Outpatient Attender: PATRICE MERCER DO [place] 07/05/2020 11:30:00 AM EST [facility] ([facility]) Outpatient Attender: PATRICE MERCER DO [place] 06/11/2020 09:00:00 AM EDT [facility] ([facility] [address] [place] [id number] 05/23/2020 12:00:00 AM EDT eCW1 ([facility]) OFFICE OUTPATIENT VISIT 15 MINUTES Attender: Annie Fish MPAS , PA-C Physical Therapy 05/22/2020 11:00:00 AM EDT MEDENT ([facility]) Immunizations Vaccine Date Status Description Data Source(s) Tdap 03/24/2021 12:00:00 AM EDT completed M EDENT ([facility] COVID-19 VACCINE Moderna 10/08/2020 12:00:00 AM EST completed [facility] Vaccine Series Complete: YESThis Data wa s Submitted to [facility] Via [employer]. COVID-19 VACCINE, MRNA-1273, LNP-S (MODERNA)/PF 10/08/2020 1 2:00:00 AM EST completed [facility] Moderna Sars-(Covid-19) vaccine, mRNA, LNP-S, PF, 100 mcg/ 0.5 mL 10/07/2020 11:00:00 PM EST completed [facility] ([facility] COVID-19 VACCINE, MRNA-1273, LNP-S (MODERNA)/PF 09/10/2020 1 2:00:00 AM EST completed [facility] COVID-19 VACCINE Moderna 09/10/2020 12:00:00 AM EST completed [facility] Vaccine Series Complete: NOThis Data was Submitted to [facility] Via [employer]. Moderna Sars-(Covid-19) vaccine, mRNA, LNP-S, PF, 100 mcg/ 0.5 mL 09/09/2020 11:00:00 PM EST completed [facility] ([facility] New in 2012. IIV4 06/07/2020 12:03:00 PM EDT completed [facility] ([facility] INFLUENZA VACCINE QUADRIVALENT 2019- (65 YR UP)/MF59 C.1/PF 06/07/2020 12:00:00 AM EDT completed [facility] New in 2011. IIV4 05/17/2020 08:51:00 AM EDT completed MEDENT ([facility], ) Medications Medication Brand Name Start [...] 12:00:0 0 AM EDT ORAL active MEDENT ([facility], ) 20 mg 12/18/2020 12:00:00 AM [...] 11/15/2020 12:00:00 AM EDT ORAL completed [facility] ([facility], ) 0.5 mg 11/14/2020 12:00:00 AM EDT [...] [Medrol] Medrol 12:00:00 AM EDT completed MED[facility] ([facility]) gabapentin 300 MG Oral Capsule Gabapentin 05/02/2020 12:00:00 AM EDT ORAL active MEDENT ([facility]) gabapentin 300 MG Oral Capsule Gabapentin 04/27/2020 12:00:00 AM EDT ORAL active MED[facility] ([facility]) Methylprednisolone 4 MG Oral Tablet [Medrol] Medrol 06/2020 12:00:00 AM EDT active MEDENT ( [facility]) pantoprazole 40 MG Delayed Release Oral Tablet PANTOPRAZOLE SODIUM 04/12/2020 12:00:00 AM EDT tablet,delayed release (DR/EC) 90 T BLAIR ONE TABLET BY MOUTH EVERY DAY FOR HEARTBURN/ACID REFLUX TAKE ONE TABLET BY MOUTH EVERY DAY FOR HEARTBURN/ACID REFLUX SOLD: 07/17/2020 [facility] 0.5 mg 09/30/2019 12:00:00 AM [...] BY MOUTH TWICE A DAY SOLD: 07/18/2020 [facility] 160-4.5 mcg/actuation 08/05/2019 12:00:00 AM EST HFA aerosol inhaler 10 INHALE TWO PUFFS BY MOUTH TWICE A DAY INHALE TWO PUFFS BY MOUTH TWICE A DAY SOLD: 05/12/2020 [facility] Insurance Providers Payer name Policy type / Coverage type Policy ID Covered alliance party ID Covered alliance party's relationship to mckeon Policy Mckeon Plan Information AETNA U [id number] Spouse [id number] AETNA [facility] [place] [id number] [place]2 [id number] AETNA [id number] Suze [id number] Aetna (pr) Medigap Part B [id number] [facility] Med Adva Medigap Part B [id number] Self [id number] Aetna (pr) Medigap Part B [id number] [facility] ([facility]) Commercial [id number] Self MEDICARE COMPLETE [id number] [facility] MEDICARE [id number] Suze [id number] Aetna Medigap Part B [id number] Family Dependent [id number] [facility] Medicare Solutions Commercial [id number] Self [id number] Aetna Medigap Part B [id number] Family Dependent [id number] [facility] Medicare Solutions Commercial [id number] Self [id number] UHC UNITED MEDICARE COMPLETE G [id number] Self [id number] Aetna Medigap Part B [id number] Family Dependent [id number] [facility] Medicare Solutions Commercial [id number] Self [id number] [facility] Medicare Solutions F [id number] SELF [id number] Aetna [facility] F [id number] SPOUSE [id number] [facility] Commercial Insurance Co. [id number] Self [id number] Aetna Commercial [employer] Co. [id number] Self [id number] [facility]-Medicare Solutions Commercial [id number] Self [id number] Aetna Medigap Part B [id number] 62.0 Self [id number] [facility] [employer] [facility] [employer] [id number] Self [id number] Aetna Medigap Part B [id number] 62.0 Self [id number] [facility] [employer] [facility] [employer] [id number] Self [id number] AETNA PI PI [facility] MEDICARE PI PI [facility]-Medicare Solutions Commercial [id number] Self [id number] [facility]-Medicare Solutions Commercial [id number] Self [id number] [facility]-Medicare Solutions Commercial [id number] Self [id number] [facility]-Medicare Solutions Commercial [id number] Self [id number] MEDICARE COMPLETE-[facility] O [id number] O [id number] Aetna Medigap Part B [id number] 695.0 Self [id number] [employer]/Medicare Commercial [id number] Self [id number] Aetna Medigap Part B [id number] 695.0 Self [id number] [employer]/Medicare Commercial [id number] Self [id number] [facility] Commercial [id number] Self [id number] MEDICARE COMPLETE [id number] SP [id number] [facility] [employer] [id number] Self Aetna Medigap Part B [id number] Family Dependent U/ Medicare Solutions Commercial [id number] Self UNITED HEALTHCARE O [id number] S [id number] AETNA [id number] WI2 [id number] Aetna Medigap Part B [id number] Family Dependent [facility] (HMO) [id number] Self AETNA HEALTHCARE S [id number] P [id number] UNITED HEALTHCARE P [id number] S [id number] MEDICARE COMPLETE [id number] SP [id number] [facility] [id number] S [id number] MEDICARE COMPLETE [id number] SP [id number] AETNA [facility] [place] [id number] [place]2 [id number] MEDICARE COMPLETE UNAVAILABLE SP UNAVAILABLE MEDICARE COMPLETE [id number] SP [id number] AETNA [facility] [place] [id number] [place]2 [id number] MEDICARE COMPLETE [id number] SP [id number] AETNA [facility] [place] [id number] [place]2 [id number] MEDICARE COMPLETE-[facility] O [id number] S [id number] AETNA [facility] [place] O [id number] S [id number] Aetna Medigap Part B [id number] [facility] [employer] [facility] Commercial [id number] Self [id number] AETNA [id number] [facility] [employer] [facility] [place] [id number] 18 [id number] Aetna [facility] Part B [id number] [facility] [employer] MCR Commercial [id number] Self [id number] UNHC MEDICARE COMPLETE [place] [id number] 18 [id number] [facility] [employer] [facility] [place] [id number] 18 [id number] Aetna Medigap Part B [id number] [facility] [employer] [facility] Commercial [id number] Self [id number] [facility]-Medicare Solutions Commercial [id number] Self [id number] [employer] Commercial [id number] Self [id number] Aetna Medigap Part B [id number] Family Dependent [id number] Problems, Conditions, and Diagnoses Code Display Name [...] EDT MED[facility] ([facility] Z87.2 [id number] History of actinic keratoses Problem 12/27/2020 12:00:00 AM EDT eCW1 ([facility]) D22.71 [id number] Melanocytic nevi of right lower limb, inc luding hip Problem 11/29/2020 12:00:00 AM EDT eCW1 ([facility]) L21.9 [id number] Seborrheic dermatitis Problem 11/29/2020 12: 00:00 AM EDT eCW1 ([facility]) D22.72 [id number] Melanocytic nevus of left lower extrem ity Problem 11/29/2020 12:00:00 AM EDT eCW1 ([facility]) L70.0 [id number] [place] Problem 11/29/2020 12:00:00 AM ED T eCW1 ([facility]) R06.2 Wheezing Wheezing Problem 06/11/2020 12:00:00 AM ED T MEDENT ([facility]) Surgeries/Procedures Procedure Description Date Indications Data Source(s) ECG ROUTINE ECG W/LEAST 12 LDS W/I&R 06/21/2021 12:00: 00 AM EDT MED[facility] ([facility]) OFFICE OUTPATIENT VISIT 25 MINUTES 06/21/2021 12:00:00 AM EDT MEDENT ([facility]) OFFICE OUTPATIENT VISIT 25 MINUTES 04/02/2021 12:00:00 AM EDT [facility] ([facility] OFFICE OUTPATIENT VISIT 25 MINUTES 01/01/2021 12:00:00 AM EDT MEDENT ([facility], ) Medication: Levulan Kerastick topical (Aminolevulinic Acid) 12/17/2020 12:00:00 AM EDT eCW1 ([facility]) Spirometry 11/15[facility]2020 [facility] OUTPATIENT VISIT 25 MINUTES 11/15/2020 12:00:00 AM EDT MEDENT ([facility], ) NJX ANES&/STRD W/IMG TFRML EDRL LMBR/SAC 1 LVL 020 12:00:00 AM EST MEDENT ([facility] ) Epidurography Radiological Supervision & Interpretation 08/06/2020 12:00:00 AM EST [facility] Moderate Sedation Services; Same Phys Intl 15 Mins; PT >= 5 Years 08/06/2020 12:00:00 AM EST [facility] Bronchoscopy, Rigid Or Flex, Diagnostic W/W/O Cell Washing 06/26/2020 12:00:00 AM EST MED[facility] ([facility] ) Spirometry 06/11/2020 12:00:00 AM EDT EDENT ([facility]) RADEX SPINE LUMBOSACRAL MINIMUM 4 VIEWS 04/27/2020 12: 00:00 AM EDT MEDENT ([facility] ) Results ID Date Data Source [id number] 06/19/2021 10:34:00 AM EDT MEDENT ([facility], ) Name Value Range Interpretation Code Description Data Macie rce(s) Supporting Document(s) Hemoglobin [Mass/volume] in Blood 9.4 g/dL 13.5-17.5 Below low nor mal MEDENT ([facility]) ID Date Data Source [id number] 06/19/2021 10:07:00 AM EDT MEDENT ([facility]) Name Value Range Interpretation Code Description Data Macie rce(s) Supporting Document(s) PDFReport Laboratory test result MEDENT ([facility], ) FVC-Pred 3.90 L MEDENT ([facility]) FVC-%Pred-Pre 60 L MEDENT ([facility]) FVC-Pre 2.38 L MED[facility] ([facility]) FVC-LLN 3.00 L MED[facility] ([facility]) Fev1-Pred 2.78 L MED[facility] ([facility]) Fev1-Pre 1.43 L MED[facility] ([facility]) Fev1-%Pred-Pre 51 L MEDENT ([facility]) Fev6-Pred 3.64 L MED[facility] ([facility]) Fev1-LLN 2.01 L MEDENT ([facility]) Skb1pko-Aybj 72 % MED[facility] ([facility]) Fev6-%Pred-Pre 65 L MED[facility] ([facility]) Fev6-Pre 2.38 L MED[facility] ([facility]) Fev6-LLN 2.76 L MED[facility] ([facility]) Kch5ovp-Iqj 60 % MED[facility] ([facility]) Nxv7rmp-%Pred-Pre 83 % MEDENT ([facility]) Qhd0via-Usv 100 % [facility] ([facility]) Suc6str-Lmjr 93 % [facility] ([facility]) Kzm1vpx-QGP 62 % [facility] ([facility]) FEFMax-Pred 7.13 L/E/sec MEDENT ([facility]) FEFMax-Pre 3.96 L/E/sec MEDENT ([facility]) Fcl2izx-%Pred-Pre 107 % [facility] ([facility]) FEFMax-%Pred-Pre 55 L/E/sec MED[facility] ([facility]) Htv2391-Rxmn 1.93 L/E/sec MEDENT ([facility]) FEFMax-LLN 4.88 L/E/sec MEDENT ([facility]) Lez8409-TCI 0.38 L/E/sec MEDENT ([facility]) Esu8360-Azy 0.73 L/E/sec MED[facility] ([facility]) Yvf6381-%Pred-Pre 37 L/E/sec MEDENT ([facility]) Gwe1vjg3-Jfdx 76 % MED[facility] ([facility]) ExpTime-Pre 6.87 sec MED[facility] ([facility]) Heb1uee1-Ccb 60 % [facility] ([facility]) Trn3gnv3-%Pred-Pre 78 % MEDENT ([facility]) Mdw3ijf1-BBW 67 % MED[facility] ([facility]) ID Date Data Source [id number] 05/30/2021 10:30:00 AM EDT MEDENT ([facility]) Name Value Range Interpretation Code Description Data Macie rce(s) Supporting Document(s) Hemoglobin [Mass/volume] in Blood 9.5 g/dL 13.5-17.5 Below low nor mal MEDENT ([facility]) ID Date Data Source [id number] 06/05/2021 12:18:31 PM EDT [facility] PCName: Kiana MaldonadoeDOB: 2Provider: Krissy [...] several years. He has been following with [facility] and has undergone conservative treatment. [...] rce(s) Supporting Document(s) ID Date Data Source [id number] 05/27/2021 09:13:00 PM EDT MED[facility] ([facility] [...] result [facility] ([facility] Specific [place] [employer] RFX 1.005 1.002-1.035 MED[facility] ([facility] [...] [facility] ID Date Data Source [id number] 05/27/2021 08:03:00 PM EDT [facility] ([facility] Name Value Range Interpretation Code Description Data Macie rce(s) Supporting Document(s) Lipoprotein lipase [Enzymatic activity/volume] in Serum or P lasma 100 U/L 73-393 [facility] ([facility] ID Date Data Source [id number] 05/27/2021 08:03:00 PM EDT MED[facility] ([facility] [...] Little GFR Left</content>
<content>ESRD GFR <15 on LURER</content>
<content></content> Potassium Serum 4.2 meq/L 3.5-5.1 [facility] ([facility] Chloride Level 110 meq/L 98-107 [facility] ([facility] Anion Gap 5 meq/L 8-16 [facility] ([facility] Carbon Dioxide Level 28 meq/L 21-32 [facility] ([facility] Calcium Level 8.7 mg/dL 8.8-10.2 [facility] ([facility] ID Date Data Source [id number] 05/27/2021 08:03:00 PM EDT MED[facility] ([facility] [...] [facility] ID Date Data Source [id number] 05/27/2021 08:03:00 PM EDT MED[facility] ([facility] [...] Neutrophils % 64.6 % 36.0-66.0 [facility] ([facility] Lymph % 19.1 % 24.0-44.0 [facility] [place] % 10.3 % 2.0-8.0 MED[facility] ([facility]ro [...] 10 1.5-5.0 [facility] [place] # 0.6 10 0.0-0.8 [facility] ([facility] Eos # 0.3 10 0.0-0.5 [facility] Baso # 0.0 10 0.0-0.2 [facility] ID Date Data Source [id number] 04/19/2021 10:58:00 AM EDT MEDENT ([facility]) Name Value Range Interpretation Code Description Data Macie rce(s) Supporting Document(s) Hemoglobin [Mass/volume] in Blood 10.2 g/dL 13.5-17.5 Below low nor mal MED[facility] ([facility]) ID Date Data Source [id number] 03/24/2021 10:10:00 AM EDT MED[facility] ([facility] [...] [facility] ID Date Data Source [id number] 02/28/2021 10:22:00 AM EDT MED[facility] ([facility]) Name Value Range Interpretation Code Description Data Macie rce(s) Supporting Document(s) Hemoglobin [Mass/volume] in Blood 10.4 g/dL 13.5-17.5 Below low nor mal [facility] ([facility]) ID Date Data Source [id number] 01/30/2021 10:20:00 AM EDT [facility] ([facility]) Name Value Range Interpretation Code Description Data Macie rce(s) Supporting Document(s) Hemoglobin A1c 6.0 % Normal (applies to non-numeric r esults) [facility]) <content>REFERENCE RANGES:</content><br/ ><content></content>
<content><=5.6% NORMAL</content>
<content>5.7-6.4% SUGGESTS IMPAIRED GLUCOSE METABOLISM/PREDIABETIC</content>
<content>>= 6.5% ABNORMAL</content>
<content></content> Estimated Average Glucose 126 mg/dL 60-110 Above high normal [facility] ([facility]) ID Date Data Source [id number] 01/01/2021 01:35:00 PM EDT [facility] ([facility]) Name Value Range Interpretation Code Description Data Macie rce(s) Supporting Document(s) White Blood Count 4.9 10 4.0-10.0 Normal (applies to non-numeri c results) [facility] Hematocrit 35.8 % 42.0-52.0 Below low normal [facility] ( [facility]) Red Blood Count 3.85 10 4.30-6.10 Below low normal [facility] ([facility]) Hemoglobin 11.4 g/dL 13.5-17.5 Below low normal [facility] ( [facility]) Mean Corpuscular HGB Conc 31.8 g/dL 32.0-36.5 Below low normal [facility] ([facility]) Mean Corpuscular Hemoglobin 29.6 pg 27.0-33.0 Norm al (applies to non-numeric results) [facility] ([facility]) Mean Corpuscular Volume 93.0 fl 80.0-96.0 Normal ( applies to non-numeric results) [facility] ([facility]) Platelet Count, Automated 284 10 150-450 Normal (applies to non-numeric results) [facility]) Red Cell Distribution Width 12.7 % 11.5-14.5 Norm al (applies to non-numeric results) [facility]) Nucleated Red Blood Cell % 0.0 % 0-0 Normal (applies to n on-numeric results) [facility]) ID Date Data Source [id number] 01/01/2021 01:35:00 PM EDT [facility]) Name Value Range Interpretation Code Description Data Macie rce(s) Supporting Document(s) Creatinine For GFR 0.92 mg/dL 0.70-1.30 Normal (applies to non -numeric results) [facility] ([facility]) Glomerular Filtration Rate Laboratory test result Normal (applies to non- numeric results) [facility]) <content>Units are mL/min/1.73 m2</content>
<content></content>
<content>Chronic Kidney Disease Staging per NKF:</content>
<content></content>
<content>Stage I & II GFR >=60 Normal to Mildly Decreased</content>
<content>Stage III GFR 30- 59 Moderately Decreased</content>
<content>Stage IV GFR 15-29 Severely Decreased</content>
<content>Stage V GFR <15 Very Little GFR Left</content>
<content>ESRD GFR <15 on LURER</content>
<content></content> ID Date Data Source [id number] 01/01/2021 01:35:00 PM EDT [facility]) Name Value Range Interpretation Code Description Data Macie rce(s) Supporting Document(s) Urea nitrogen [Mass/volume] in Serum or Plasma 19 mg/dL 7-18 Above high normal [facility]) ID Date Data Source [id number] 11/15/2020 12:01:00 PM EDT [facility] ([facility]) Name Value Range Interpretation Code Description Data Macie rce(s) Supporting Document(s) Glomerular Filtration Rate Laboratory test result Normal (applies to non- numeric results) [facility] ([facility]) <content>Units are mL/min/1.73 m2</content>
<content></content>
<content>Chronic Kidney Disease Staging per NKF:</content>
<content></content>
<content>Stage I & II GFR >=60 Normal to Mildly Decreased</content>
<content>Stage III GFR 30- 59 Moderately Decreased</content>
<content>Stage IV GFR 15-29 Severely Decreased</content>
<content>Stage V GFR <15 Very Little GFR Left</content>
<content>ESRD GFR <15 on LURER</content>
<content></content> Creatinine For GFR 0.83 mg/dL 0.70-1.30 Normal (applies to non -numeric results) [facility] ([facility]) ID Date Data Source [id number] 11/15/2020 12:01:00 PM EDT [facility] ([facility]) Name Value Range Interpretation Code Description Data Macie rce(s) Supporting Document(s) Urea nitrogen [Mass/volume] in Serum or Plasma 29 mg/dL 7-18 Above high normal [facility] ([facility]) ID Date Data Source [id number] 11/15/2020 11:29:00 AM EDT [facility] ([facility]) Name Value Range Interpretation Code Description Data Macie rce(s) Supporting Document(s) PDFReport Laboratory test result [facility] ([facility]) FVC-Pre 2.91 L [facility] ([facility]) FVC-Pred 3.95 L [facility] ([facility]) FVC-%Pred-Pre 73 L [facility] ([facility]) Fev1-Pred 2.82 L [facility] ([facility], ) FVC-LLN 3.04 L [facility] ([facility], ) Fev1-Pre 1.91 L [facility] ([facility]) Fev1-%Pred-Pre 67 L [facility] ([facility]) Fev1-LLN 2.05 L [facility] ([facility], ) Fev6-Pred 3.68 L [facility] ([facility]) Fev6-Pre 2.91 L [facility] ([facility]) Fev6-%Pred-Pre 79 L [facility] ([facility]) Fev6-LLN 2.80 L [facility] ([facility]) Gnk7pwe-Jbjl 72 % [facility] ([facility]) Nmj4eka-Zvo 66 % [facility] ([facility]) Fpa0ugm-%Pred-Pre 91 % [facility] ([facility]) Lrx0rle-TXE 62 % [facility] ([facility]) Fbr3fbn-%Pred-Pre 107 % [facility] ([facility]) Bwe3cfv-Zbm 100 % [facility] ([facility]) Alb9lba-Niyp 93 % [facility] ([facility]) FEFMax-%Pred-Pre 54 L/E/sec [facility] ([facility]) FEFMax-Pred 7.26 L/E/sec [facility] ([facility]) FEFMax-Pre 3.92 L/E/sec [facility] ([facility]) FEFMax-LLN 5.00 L/E/sec [facility] ([facility]) Exu2135-Ngb 1.10 L/E/sec [facility] ([facility]) Fix5464-Tqkm 1.98 L/E/sec [facility] ([facility]) ExpTime-Pre 5.83 sec [facility] ([facility]) Jet4666-QTD 0.43 L/E/sec [facility] ([facility], ) Xbo0251-%Pred-Pre 55 L/E/sec [facility] ([facility]) Cvl7bmd2-%Pred-Pre 85 % [facility] ([facility]) Lpq6bot7-Djtg 77 % [facility] ([facility]) Jjm3jiw2-Bdo 66 % [facility] ([facility]) Hgu4wln2-SPY 68 % [facility] ([facility]) ID Date Data Source [id number] 10/22/2020 03:57:00 PM EST [facility] ([facility]) Name Value Range Interpretation Code Description Data Macie rce(s) Supporting Document(s) Laboratory test finding (navigational concept) Laboratory test result [facility] ([facility]) ID Date Data Source [id number] 08/01/2020 01:00:00 PM EST [facility] ([facility]) Name Value Range Interpretation Code Description Data Macie rce(s) Supporting Document(s) Coronavirus 2019 Nasopharygeal Laboratory test result [facility] ([facility]) This nucleic acid amplification test was developed and its performance characteristics determined by [employer]. Nucleic acid amplification tests include PCR and [...] detected) result in this assay. Performed at: [employer] [facility], [place], [place] [id number] Account Support Analyst: Virgie Bear PhD, Phone: [phone] Not Detected ID Date Data Source [id number] 08/01/2020 01:00:00 PM EST [facility] Name Value Range Interpretation Code Description Data Macie rce(s) Supporting Document(s) SARS coronavirus 2 RNA [facility] This lab was ordered by [facility] and reported by [facility]. ID Date Data Source [id number] 07/31/2020 09:59:00 AM EST [facility] ([facility]) Name Value Range Interpretation Code Description Data Macie rce(s) Supporting Document(s) Prothrombin time (PT) Laboratory test result [facility] ([facility]) ID Date Data Source [id number] 07/31/2020 09:59:00 AM EST [facility] ([facility]) Name Value Range Interpretation Code Description Data Macie rce(s) Supporting Document(s) Platelets [#/volume] in Blood by Automated count 229 10 150-450 [facility] ([facility]) ID Date Data Source [id number] 07/31/2020 09:59:00 AM EST [facility] ([facility]) Name Value Range Interpretation Code Description Data Macie rce(s) Supporting Document(s) Prothrombin Time 12.4 s 12.5-14.3 [facility] ([facility]) Inr 0.91 [facility] ([facility]) THERAPUTIC HUMAN INR VALUES INDICATIONS NORMAL RANGES PROPHYLAXIS/TREATMENT OF: VENOUS THROMBOSIS 2.0-3.0 PULMONARY EMBOLISM 2.0-3.0 PREVENTION OF SYSTEMIC EMBOLISM FROM: TISSUE HEART VALVES 2.0-3.0 ACUTE MYOCARDIAL INFARCTION 2.0-3.0 VALVULAR HEART DISEASE 2.0-3.0 ATRIAL FIBRILLATION 2.0-3.0 MECHANICAL VALVES(HIGH RISK) 2.5-3.5 RECURRENT MYOCARDIAL INFARCTION 2.5-3.5 Partial Thromboplastin Time 29.6 s 24.2-38.5 [facility] ([facility]) ID Date Data Source [id number] 06/21/2020 12:00:00 PM EST [facility] Name Value Range Interpretation Code Description Data Macie rce(s) Supporting Document(s) SARS coronavirus 2 RNA [facility] This lab was ordered by [facility] and reported by [facility]. ID Date Data Source [id number] 06/11/2020 08:40:00 AM EDT [facility] ([facility], ) Name Value Range Interpretation Code Description Data Macie rce(s) Supporting Document(s) PDFReport Laboratory test result [facility] ([facility], ) \\\\[id number]\\[id number] FVC-Pred 3.95 L [facility] ([facility], ) FVC-%Pred-Pre 77 L [facility] ([facility]) FVC-Pre 3.04 L [facility] ([facility]) FVC-LLN 3.04 L [facility] ([facility]) Fev1-Pred 2.82 L [facility] ([facility]) Fev1-Pre 1.94 L [facility] ([facility]) Fev6-Pred 3.68 L [facility] ([facility]) Fev1-%Pred-Pre 68 L [facility] ([facility]) Fev1-LLN 2.05 L [facility] ([facility]) Fev6-%Pred-Pre 81 L [facility] ([facility]) Fev6-Pre 3.01 L [facility] ([facility]) Fev6-LLN 2.80 L [facility] ([facility]) Iiy8iik-Lhkl 72 % [facility] ([facility]) Dys2zea-Baf 64 % [facility] ([facility]) Vnn9ylh-%Pred-Pre 88 % [facility] ([facility]) Qrk4owt-Lvol 93 % [facility] ([facility]) Uhv0cru-HUZ 62 % [facility] ([facility]) Ukw2ooo-%Pred-Pre 106 % [facility] ([facility]) Znl0zee-Gjy 99 % [facility] ([facility]) FEFMax-Pre 4.43 L/E/sec [facility] ([facility]) FEFMax-Pred 7.26 L/E/sec [facility] ([facility], ) FEFMax-LLN 5.00 L/E/sec [facility] ([facility]) FEFMax-%Pred-Pre 61 L/E/sec [facility] ([facility], ) Jtp6061-Legn 1.98 L/E/sec [facility] ([facility]) Cde3683-Avv 1.04 L/E/sec [facility] ([facility]) Jrg2893-%Pred-Pre 52 L/E/sec [facility] ([facility]) Qzz0382-FVN 0.43 L/E/sec [facility] ([facility], ) ExpTime-Pre 6.52 sec [facility] ([facility]) Xur7kly8-Cdp 64 % [facility] ([facility]) Dov5igo1-Eqdw 77 % [facility] ([facility], ) Iuv4jlz1-QDV 68 % [facility] ([facility]) Tbz1zrw5-%Pred-Pre 84 % [facility] ([facility]) ID Date Data Source [id number] 05/15/2020 12:00:00 AM EDT [facility] Patient Name: KIANA MCKEON [address] [place] [address] [facility] 1940[facility] [place] [address] Date of Exam: 05/15/2020#: Fax: [phone] EXAM: [...] is a former smoker [facility] ([facility]) Smoking 06/19/2021 12:00:00 AM EDT Patient is a former smoker completed Patient is a former smoker [facility] ([facility], ) Smoking 01/22/2021 12:00:00 AM EDT Former Smoker completed Former Smoker eCW1 ([facility]) Smoking 12/17/2020 12:00:00 AM EDT Former Smoker completed Former Smoker eCW1 ([facility]) Smoking 12/17/2020 12:00:00 AM EDT Former Smoker completed Former Smoker eCW1 ([facility]) Vital Signs ID Date Data Source [id number] Name Value Range Interpretation Code Description Data Source(s) Body weight 178.00 [lb_av] 178.00 [lb_av] [facility] T ([facility]) Body height 71 [in_i] 71 [in_i] [facility] 5'11" Body mass index (BMI) [Ratio] 24.8 kg/m2 24.8 k g/m2 [facility] ([facility]) Heart rate 61 /min 61 /min [facility] ([facility]) Respiratory rate 14 /min 14 /min [facility] ( [facility]) Systolic blood pressure--sitting 118 mm[Hg] 118 mm[Hg] [facility] ([facility]) Ra, medium cuff Diastolic blood pressure--sitting 72 mm[Hg] 72 mm[Hg] [facility] ([facility]) Ra, medium cuff Oxygen saturation in Arterial blood by Pulse oximetry 98 % 98 % [facility]) Body surface area Derived from formula 1.97 m2 1.97 m2 [facility] ([facility], ) Heart rate 64 /min 64 /min [facility] ([facility]) Oxygen saturation in Arterial blood by Pulse oximetry 99 % 99 % [facility] ([facility], ) Systolic blood pressure 110 mm[Hg] 110 mm[Hg] M [facility] ([facility]) Diastolic blood pressure 74 mm[Hg] 74 mm[Hg] [facility] ([facility]) Body height 69 [in_i] 69 [in_i] [facility] ([facility]) 5'9" Body weight 179.00 [lb_av] 179.00 [lb_av] [facility] T ([facility]) Body mass index (BMI) [Ratio] 26.4 kg/m2 26.4 k g/m2 [facility] ([facility]) Da[place]hin body weight 160 [lb_av] 160 [lb_av] [facility] T ([facility]) Body weight 81.194 kg 81.194 kg [facility] ([facility]) Body temperature 97.0 [degF] 97.0 [degF] [facility] ([facility] Diastolic blood pressure 55 mm[Hg] 55 mm[Hg] [facility] ([facility] Heart rate 63 /min 63 /min [facility] ([facility] Body weight 181.00 [lb_av] 181.00 [lb_av] [facility] T ([facility] [place]hin body weight 172 [lb_av] 172 [lb_av] [facility] T ([facility] Body mass index (BMI) [Ratio] 25.2 kg/m2 25.2 k g/m2 [facility] ([facility] Systolic blood pressure 120 mm[Hg] 120 mm[Hg] M [facility] ([facility] Body height 71 [in_i] 71 [in_i] [facility] ([facility] 5'11" Oxygen saturation in Arterial blood by Pulse oximetry 98 % 98 % [facility] ([facility] Respiratory rate 17 /min 17 /min [facility] ( [facility] Body weight 176.0 [lb_av] 176.0 [lb_av] eCW1 ([facility]) Body height [in_i] eCW1 ([facility]) Body mass index (BMI) [Ratio] 24.54 kg/m2 24.54 kg/m2 eCW1 ([facility]) Systolic blood pressure 128 mm[Hg] 128 mm[Hg] e CW1 ([facility]) Diastolic blood pressure 74 mm[Hg] 74 mm[Hg] eCW1 ([facility]) Body temperature 97.7 [degF] 97.7 [degF] [facility] ([facility]) Oxygen saturation in Arterial blood by Pulse oximetry 97 % 97 % [facility] ([facility]) Body mass index (BMI) [Ratio] 26.4 kg/m2 26.4 k g/m2 [facility] ([facility]) [place] body weight 160 [lb_av] 160 [lb_av] [facility] T ([facility]) Body weight 81.194 kg 81.194 kg [facility] ([facility]) Body surface area Derived from formula 1.97 m2 1.97 m2 [facility] ([facility]) Body mass index (BMI) [Ratio] 26.4 kg/m2 26.4 k g/m2 [facility] ([facility]) Body height 69 [in_i] 69 [in_i] [facility] ([facility]) 5'9" Body weight 179.00 [lb_av] 179.00 [lb_av] [facility] Systolic blood pressure 120 mm[Hg] 120 mm[Hg] M [facility]ENT ([facility]) Diastolic blood pressure 60 mm[Hg] 60 mm[Hg] [facility] ([facility]) Heart rate 68 /min 68 /min [facility] ([facility]) Oxygen saturation in Arterial blood by Pulse oximetry 97 % 97 % [facility] ([facility]) Body temperature 97.7 [degF] 97.7 [degF] [facility] ([facility]) Body height 69 [in_i] 69 [in_i] [facility]) 5'9" Body weight 179.00 [lb_av] 179.00 [lb_av] [facility] T ([facility]) [place] body weight 160 [lb_av] 160 [lb_av] [facility] T ([facility]) Body weight 81.194 kg 81.194 kg [facility] ([facility]) Body surface area Derived from formula 1.97 m2 1.97 m2 [facility] ([facility]) Systolic blood pressure 130 mm[Hg] 130 mm[Hg] e CW1 ([facility]) Body height [in_i] eCW1 ([facility]) Body mass index (BMI) [Ratio] 25.10 kg/m2 25.10 kg/m2 eCW1 ([facility]) Body weight 180 [lb_av] 180 [lb_av] eCW1 ([facility]) Diastolic blood pressure 78 mm[Hg] 78 mm[Hg] eCW1 ([facility]) Body weight 182.0 [lb_av] 182.0 [lb_av] eCW1 ([facility]) Body height [in_i] eCW1 ([facility]) Body mass index (BMI) [Ratio] 25.38 kg/m2 25.38 kg/m2 eCW1 ([facility]) Systolic blood pressure 116 mm[Hg] 116 mm[Hg] e CW1 ([facility]) Diastolic blood pressure 74 mm[Hg] 74 mm[Hg] eCW1 ([facility]) [place] body weight 160 [lb_av] 160 [lb_av] [facility] T ([facility]) Body weight 82.555 kg 82.555 kg [facility] ([facility]) Body surface area Derived from formula 1.98 m2 1.98 m2 [facility] ([facility]) Body height 69 [in_i] 69 [in_i] [facility] ([facility]) 5'9" Oxygen saturation in Arterial blood by Pulse oximetry 98 % 98 % [facility] ([facility]) Body temperature 96.0 [degF] 96.0 [degF] [facility] ([facility]) Body weight 182.00 [lb_av] 182.00 [lb_av] [facility] T ([facility]) Body mass index (BMI) [Ratio] 26.9 kg/m2 26.9 k g/m2 [facility] ([facility]) Systolic blood pressure 120 mm[Hg] 120 mm[Hg] M [facility] ([facility]) Diastolic blood pressure 82 mm[Hg] 82 mm[Hg] [facility] ([facility]) Heart rate 60 /min 60 /min [facility] ([facility]) Oxygen saturation in Arterial blood by Pulse oximetry 98 % 98 % [facility] ([facility]) Body temperature 96.0 [degF] 96.0 [degF] [facility] ([facility]) Body height 69 [in_i] 69 [in_i] [facility] ([facility]) 5'9" Body weight 182.00 [lb_av] 182.00 [lb_av] [facility] T ([facility]) Body mass index (BMI) [Ratio] 26.9 kg/m2 26.9 k g/m2 [facility] ([facility]) [place] body weight 160 [lb_av] 160 [lb_av] [facility] Body weight 82.555 kg 82.555 kg [facility] ([facility]) Body surface area Derived from formula 1.98 m2 1.98 m2 [facility] ([facility]) Systolic blood pressure 118 mm[Hg] 118 mm[Hg] M EDENT ([facility]) Diastolic blood pressure 70 mm[Hg] 70 mm[Hg] [facility] ([facility]) Heart rate 70 /min 70 /min [facility] ([facility]) Oxygen saturation in Arterial blood by Pulse oximetry 96 % 96 % [facility] ([facility]) Room Air Body height 69 [in_i] 69 [in_i] [facility] ([facility]) 5'9" Body weight 184.00 [lb_av] 184.00 [lb_av] [facility] T ([facility]) Body mass index (BMI) [Ratio] 27.2 kg/m2 27.2 k g/m2 [facility] ([facility]) [place] body weight 160 [lb_av] 160 [lb_av] MED[facility] T ([facility]) Body weight 83.462 kg 83.462 kg [facility] ([facility]) Body surface area Derived from formula 1.99 m2 1.99 m2 [facility] ([facility]) Body weight 182.12 [lb_av] 182.12 [lb_av] MEDEN T ([facility]) Body temperature 97.3 [degF] 97.3 [degF] [facility] ([facility]) Body height 69 [in_i] 69 [in_i] [facility] ([facility]) 5'9" Body mass index (BMI) [Ratio] 26.9 kg/m2 26.9 k g/m2 [facility] ([facility]) Body height 69 [in_i] 69 [in_i] [facility] ([facility]) 5'9" Heart rate 65 /min 65 /min [facility] ([facility]) Oxygen saturation in Arterial blood by Pulse oximetry 98 % 98 % [facility] ([facility]) Body temperature 97.4 [degF] 97.4 [degF] [facility] ([facility]) Body mass index (BMI) [Ratio] 27.3 kg/m2 27.3 k g/m2 [facility] ([facility]) [place] body weight 160 [lb_av] 160 [lb_av] MED[facility] T ([facility]) Body weight 83.916 kg 83.916 kg [facility] ([facility]) Body weight 185.00 [lb_av] 185.00 [lb_av] MED[facility] T ([facility]) Systolic blood pressure 120 mm[Hg] 120 mm[Hg] M EDENT ([facility]) Diastolic blood pressure 70 mm[Hg] 70 mm[Hg] [facility] ([facility], ) Body temperature 97.0 [degF] 97.0 [degF] [facility] ([facility]) Body height 71 [in_i] 71 [in_i] [facility] ([facility]) 5'11" Body weight 180.00 [lb_av] 180.00 [lb_av] JAQUELINE Berg ([facility]) Body mass index (BMI) [Ratio] 25.1 kg/m2 25.1 k g/m2 [facility] ([facility])
[2021-06-25 21:39] LABS: CK-MB VALUE MASS 3.4 NG/ML (<3.6); CPK CREATINE PHOSPHOKINASE 215 U/L (39-308); MB/CK RELATIVE INDEX 1.58 (< OR =4); TROPONIN I < 0.02 NG/ML (< 0.10)
[2021-06-25 21:48] VITALS: BP 158/69
--- NOTE | 2021-06-26 09:41 | ED PDOC ---
Post-Departure Follow-Up cta chest faxed to dr young for fu Ruben Beal MD Jun 26, 2021 09:41
== END 2021-06-25 22:03 | disposition home or self-care (01) ==
LOC: M ED 16:13
DX: I77.810 Thoracic aortic ectasia (principal); R79.1 Abnormal coagulation profile; Z11.52 Encounter for screening for COVID-19; D64.9 Anemia, unspecified; I50.32 Chronic diastolic (congestive) heart failure; R06.02 Shortness of breath; I10 Essential (primary) hypertension; J44.9 Chronic obstructive pulmonary disease, unspecified; E78.5 Hyperlipidemia, unspecified; Z87.442 Personal history of urinary calculi; R91.1 Solitary pulmonary nodule; K44.9 Diaphragmatic hernia without obstruction or gangrene; Z79.82 Long term (current) use of aspirin; Z79.01 Long term (current) use of anticoagulants; Z79.899 Other long term (current) drug therapy; Z88.2 Allergy status to sulfonamides; Z88.8 Allergy status to other drugs, medicaments and biological substances
CPT/HCPCS: 36415; 71275; 80053; 82550; 82553; 82607; 82728; 82746; 83550; 83880; 84484; 85025; 85046; 85379; 87631; 93005; 99284; Q9967

== ENCOUNTER → 2021-06-25 | Outpatient (CLI) | payer MEDICARE, OTHER ==
[2021-06-25 14:07] LABS: HEMATOCRIT 31.2 % (42.0-52.0); HEMOGLOBIN 9.2 g/dl (13.5-17.5); MEAN CORPUSCULAR HEMOGLOBIN 25.5 pg (27.0-33.0); MEAN CORPUSCULAR HGB CONC 29.5 g/dl (32.0-36.5); MEAN CORPUSCULAR VOLUME 86.4 fl (80.0-96.0); PLATELET COUNT, AUTOMATED 250 10^3/uL (150-450); RED BLOOD COUNT 3.61 10^6/uL (4.30-6.10); WHITE BLOOD COUNT 3.9 10^3/uL (4.0-10.0)
[2021-06-25 14:25] LABS: ALBUMIN 3.5 GM/DL (3.2-5.2); ALT/SGPT 21 U/L (12-78); BILIRUBIN,TOTAL 0.4 MG/DL (0.2-1.0); BLOOD UREA NITROGEN 23 MG/DL (7-18); CALCIUM LEVEL 8.9 MG/DL (8.8-10.2); CARBON DIOXIDE LEVEL 25 MEQ/L (21-32); CHLORIDE LEVEL 108 MEQ/L (98-107); CREATININE FOR GFR 0.94 MG/DL (0.70-1.30); GLOMERULAR FILTRATION RATE > 60.0 (>42); GLUCOSE, FASTING 72 MG/DL (70-100); POTASSIUM SERUM 4.2 MEQ/L (3.5-5.1); SODIUM LEVEL 141 MEQ/L (136-145); TOTAL PROTEIN 5.9 GM/DL (6.4-8.2)
[2021-06-25 14:26] LABS: NT-PRO BNP 761 PG/ML (<450)
== END ==
LOC: M WUC 09:58
PROVIDERS: ATTEND Physician Assistant
DX: I50.32 Chronic diastolic (congestive) heart failure (principal); R06.02 Shortness of breath

== ENCOUNTER → 2021-06-25 | Outpatient (CLI) | payer MEDICARE, OTHER ==
[2021-06-25 14:05] LABS: BASO % 0.7 % (0.0-1.0); EOS # 0.2 10^3/uL (0.0-0.5); EOS % 5.1 % (0.0-3.0); HEMATOCRIT 31.8 % (42.0-52.0); HEMOGLOBIN 9.4 g/dl (13.5-17.5); LYMPH # 0.8 10^3/uL (1.5-5.0); LYMPH % 20.4 % (24.0-44.0); MEAN CORPUSCULAR HEMOGLOBIN 25.5 pg (27.0-33.0); MEAN CORPUSCULAR HGB CONC 29.6 g/dl (32.0-36.5); MEAN CORPUSCULAR VOLUME 86.4 fl (80.0-96.0); MONO # 0.5 10^3/uL (0.0-0.8); MONO % 12.6 % (2.0-8.0); NEUTROPHILS # 2.5 10^3/uL (1.5-8.5); PLATELET COUNT, AUTOMATED 256 10^3/uL (150-450); RED BLOOD COUNT 3.68 10^6/uL (4.30-6.10); WHITE BLOOD COUNT 4.1 10^3/uL (4.0-10.0)
[2021-06-25 14:15] LABS: PERCENT SATURATION 8.5 % (19.7-50.0)
== END ==
LOC: M WUC 09:56
PROVIDERS: ATTEND Family Medicine
DX: D64.9 Anemia, unspecified (principal)

== ENCOUNTER → 2021-07-29 | Outpatient (CLI) | payer MEDICARE, OTHER ==
[2021-07-29 13:13] LABS: BASO % 0.5 % (0.0-1.0); EOS # 0.3 10^3/uL (0.0-0.5); EOS % 7.9 % (0.0-3.0); HEMATOCRIT 30.7 % (42.0-52.0); HEMOGLOBIN 9.1 g/dl (13.5-17.5); LYMPH # 0.8 10^3/uL (1.5-5.0); LYMPH % 20.1 % (24.0-44.0); MEAN CORPUSCULAR HEMOGLOBIN 25.2 pg (27.0-33.0); MEAN CORPUSCULAR HGB CONC 29.6 g/dl (32.0-36.5); MONO # 0.4 10^3/uL (0.0-0.8); MONO % 10.8 % (2.0-8.0); NEUTROPHILS # 2.5 10^3/uL (1.5-8.5); NEUTROPHILS % 60.5 % (36.0-66.0); PLATELET COUNT, AUTOMATED 271 10^3/uL (150-450); RED BLOOD COUNT 3.61 10^6/uL (4.30-6.10); WHITE BLOOD COUNT 4.1 10^3/uL (4.0-10.0)
[2021-07-29 13:59] LABS: PERCENT SATURATION 6.1 % (19.7-50.0)
== END ==
LOC: M WUC 10:30
PROVIDERS: ATTEND Family Medicine
DX: D50.9 Iron deficiency anemia, unspecified (principal)

== ENCOUNTER → 2021-09-17 | Outpatient (CLI) | payer MEDICARE | LOC: M WUC 10:41 | PROVIDERS: ATTEND Family Medicine | DX: D50.9 Iron deficiency anemia, unspecified (principal) ==

== ENCOUNTER → 2021-11-07 | Outpatient (CLI) | payer MEDICARE ==
[~2021-11-07] MED LIST changes: +MULT-90 PO; +SPIR1CAP INH
== END ==
LOC: M RAD 15:04
PROVIDERS: ATTEND Family Medicine
DX: R91.8 Other nonspecific abnormal finding of lung field (principal); Z87.891 Personal history of nicotine dependence

== ENCOUNTER → 2021-11-20 | Outpatient (CLI) | payer MEDICARE ==
[2021-11-20 12:43] LABS: BASO % 0.2 % (0.0-1.0); EOS % 0.2 % (0.0-3.0); HEMATOCRIT 34.8 % (42.0-52.0); HEMOGLOBIN 11.1 g/dl (13.5-17.5); LYMPH # 0.7 10^3/uL (1.5-5.0); LYMPH % 12.3 % (24.0-44.0); MEAN CORPUSCULAR HGB CONC 31.9 g/dl (32.0-36.5); MEAN CORPUSCULAR VOLUME 90.9 fl (80.0-96.0); MONO # 0.6 10^3/uL (0.0-0.8); MONO % 10.2 % (2.0-8.0); NEUTROPHILS # 4.2 10^3/uL (1.5-8.5); NEUTROPHILS % 76.6 % (36.0-66.0); PLATELET COUNT, AUTOMATED 235 10^3/uL (150-450); RED BLOOD COUNT 3.83 10^6/uL (4.30-6.10); WHITE BLOOD COUNT 5.5 10^3/uL (4.0-10.0)
[2021-11-20 13:03] LABS: ALBUMIN 3.4 GM/DL (3.2-5.2); ALT/SGPT 40 U/L (12-78); BILIRUBIN,TOTAL 0.3 MG/DL (0.2-1.0); BLOOD UREA NITROGEN 23 MG/DL (7-18); CALCIUM LEVEL 8.8 MG/DL (8.8-10.2); CARBON DIOXIDE LEVEL 29 MEQ/L (21-32); CHLORIDE LEVEL 110 MEQ/L (98-107); CREATININE FOR GFR 0.83 MG/DL (0.70-1.30); FERRITIN 96 NG/ML (26-388); GLOMERULAR FILTRATION RATE > 60.0 (>42); GLUCOSE, FASTING 114 MG/DL (70-100); IRON (FE) 104 UG/DL (65-175); PERCENT SATURATION 31.5 % (19.7-50.0); POTASSIUM SERUM 3.9 MEQ/L (3.5-5.1); SODIUM LEVEL 144 MEQ/L (136-145); TOTAL IRON BINDING CAPACITY 330 UG/DL (250-450); TOTAL PROTEIN 5.7 GM/DL (6.4-8.2)
== END ==
LOC: M WUC 10:00
PROVIDERS: ATTEND Internal Medicine Hematology & Oncology
DX: D50.9 Iron deficiency anemia, unspecified (principal); D64.9 Anemia, unspecified; E61.1 Iron deficiency; J44.9 Chronic obstructive pulmonary disease, unspecified; I25.10 Atherosclerotic heart disease of native coronary artery without angina pectoris; Z86.711 Personal history of pulmonary embolism; Z79.01 Long term (current) use of anticoagulants; Z79.82 Long term (current) use of aspirin; Z79.899 Other long term (current) drug therapy

== ENCOUNTER → 2021-12-14 | Outpatient (REF) | payer MEDICARE, OTHER ==
[~2021-12-14] MED LIST changes: +AMOX875T2 PO; -ESOM20CA25; +ESOM20CA25 PO; +ONDA4TAB6 PO; -ROSU20TA5; +ROSU20TA5 PO; -XARE20TA; +XARE20TA PO
== END ==
LOC: M LAB REF 16:57
PROVIDERS: ATTEND Physician Assistant Medical
DX: J20.9 Acute bronchitis, unspecified (principal); R50.9 Fever, unspecified

== ENCOUNTER → 2021-12-16 | Outpatient (CLI) | payer MEDICARE, OTHER ==
[2021-12-16 15:02] LABS: BASO % 0.3 % (0.0-1.0); EOS # 0.2 10^3/uL (0.0-0.5); EOS % 7.3 % (0.0-3.0); HEMATOCRIT 38.7 % (42.0-52.0); HEMOGLOBIN 12.6 g/dl (13.5-17.5); LYMPH # 0.8 10^3/uL (1.5-5.0); LYMPH % 25.3 % (24.0-44.0); MEAN CORPUSCULAR HEMOGLOBIN 30.7 pg (27.0-33.0); MEAN CORPUSCULAR HGB CONC 32.6 g/dl (32.0-36.5); MEAN CORPUSCULAR VOLUME 94.4 fl (80.0-96.0); MONO # 0.4 10^3/uL (0.0-0.8); MONO % 12.3 % (2.0-8.0); NEUTROPHILS # 1.7 10^3/uL (1.5-8.5); NEUTROPHILS % 54.5 % (36.0-66.0); PLATELET COUNT, AUTOMATED 267 10^3/uL (150-450); WHITE BLOOD COUNT 3.2 10^3/uL (4.0-10.0)
[2021-12-16 15:35] LABS: ALBUMIN 3.4 GM/DL (3.2-5.2); ALT/SGPT 21 U/L (12-78); BILIRUBIN,TOTAL 0.3 MG/DL (0.2-1.0); BLOOD UREA NITROGEN 22 MG/DL (7-18); CALCIUM LEVEL 8.3 MG/DL (8.8-10.2); CARBON DIOXIDE LEVEL 28 MEQ/L (21-32); CHLORIDE LEVEL 107 MEQ/L (98-107); CREATININE FOR GFR 0.86 MG/DL (0.70-1.30); FERRITIN 353 NG/ML (26-388); GLOMERULAR FILTRATION RATE > 60.0 (>42); GLUCOSE, FASTING 111 MG/DL (70-100); IRON (FE) 68 UG/DL (65-175); PERCENT SATURATION 24.6 % (19.7-50.0); POTASSIUM SERUM 3.7 MEQ/L (3.5-5.1); SODIUM LEVEL 140 MEQ/L (136-145); TOTAL IRON BINDING CAPACITY 276 UG/DL (250-450); TOTAL PROTEIN 5.8 GM/DL (6.4-8.2)
== END ==
LOC: M WUC 13:05
PROVIDERS: ATTEND Internal Medicine Hematology & Oncology
DX: D50.9 Iron deficiency anemia, unspecified (principal)

== ENCOUNTER → 2021-12-25 | Outpatient (CLI) | payer MEDICARE ==
[~2021-12-25] MED LIST changes: +ESOM20CA25; -ESOM20CA25 PO; +ROSU20TA5; -ROSU20TA5 PO; +XARE20TA; -XARE20TA PO
== END ==
LOC: M PLAIMG 08:38
PROVIDERS: ATTEND Nurse Practitioner Family
DX: N20.0 Calculus of kidney (principal); K80.20 Calculus of gallbladder without cholecystitis without obstruction; M54.50 Low back pain, unspecified

== ENCOUNTER 2021-12-27 16:53 | Emergency (ER) | payer MEDICARE ==
[~2021-12-27] VITALS: Ht 180.3 cm; Wt 78.7 kg
[~2021-12-27 16:53] MED LIST changes: -AMOX875T2 PO; -ESOM20CA25; +ESOM20CA25 PO; -ONDA4TAB6 PO; -ROSU20TA5; +ROSU20TA5 PO; -XARE20TA; +XARE20TA PO
[2021-12-27 20:48] LABS: BASO % 0.2 % (0.0-1.0); EOS # 0.7 10^3/uL (0.0-0.5); EOS % 5.8 % (0.0-3.0); HEMATOCRIT 37.6 % (42.0-52.0); HEMOGLOBIN 12.4 g/dl (13.5-17.5); LYMPH # 0.5 10^3/uL (1.5-5.0); LYMPH % 4.2 % (24.0-44.0); MEAN CORPUSCULAR HEMOGLOBIN 30.6 pg (27.0-33.0); MEAN CORPUSCULAR VOLUME 92.8 fl (80.0-96.0); MONO # 0.7 10^3/uL (0.0-0.8); MONO % 5.5 % (2.0-8.0); NEUTROPHILS # 10.3 10^3/uL (1.5-8.5); PLATELET COUNT, AUTOMATED 212 10^3/uL (150-450); RED BLOOD COUNT 4.05 10^6/uL (4.30-6.10); WHITE BLOOD COUNT 12.3 10^3/uL (4.0-10.0)
[2021-12-27 21:09] LABS: ALT/SGPT 21 U/L (12-78); BILIRUBIN,DIRECT < 0.1 MG/DL (0.0-0.2); BILIRUBIN,TOTAL 0.6 MG/DL (0.2-1.0); LIPASE 246 U/L (73-393); TOTAL PROTEIN 5.8 GM/DL (6.4-8.2)
[2021-12-27 21:28] LABS: POTASSIUM SERUM 4.9 MEQ/L (3.5-5.1)
[2021-12-27] MEDS ORDERED: NS 500 ML IV ONE (21:35)
[2021-12-27] MEDS ORDERED: ONDANSETRON 4MG/2ML VIAL IV ONE (22:30)
[2021-12-27] MEDS ORDERED: ONDA4TAB6 PO (22:34)
[2021-12-27] MEDS ORDERED: AMOX875T2 PO (22:34)
[2021-12-27] MEDS ORDERED: AUGMENTIN 875 MG TAB PO ONE (22:35)
[2021-12-27 22:59] VITALS: BP 126/79
== END 2021-12-27 23:01 | disposition home or self-care (01) ==
LOC: M ED 16:53
DX: K44.9 Diaphragmatic hernia without obstruction or gangrene (principal); R10.32 Left lower quadrant pain; J44.9 Chronic obstructive pulmonary disease, unspecified; I10 Essential (primary) hypertension; E78.5 Hyperlipidemia, unspecified; N28.1 Cyst of kidney, acquired; N20.0 Calculus of kidney; Z79.82 Long term (current) use of aspirin; Z79.01 Long term (current) use of anticoagulants; Z79.899 Other long term (current) drug therapy; Z88.2 Allergy status to sulfonamides; Z88.8 Allergy status to other drugs, medicaments and biological substances
CPT/HCPCS: 74176; 80047; 80076; 81001; 83690; 84132; 85025; 96361; 96374; 99284; J2405

== ENCOUNTER → 2022-01-03 | Outpatient (CLI) | payer MEDICARE ==
[~2022-01-03] MED LIST changes: +AMOX875T2 PO; +E-Z-PAQUE 96% w/w SUSP 176GM BTL As Ordered ONE; +ONDA4TAB6 PO
== END ==
LOC: M RAD 10:08
PROVIDERS: ATTEND Internal Medicine Gastroenterology
DX: D50.9 Iron deficiency anemia, unspecified (principal); K44.9 Diaphragmatic hernia without obstruction or gangrene; K21.9 Gastro-esophageal reflux disease without esophagitis

== ENCOUNTER → 2022-01-04 | Outpatient (CLI) | payer MEDICARE ==
[~2022-01-04] MED LIST changes: -E-Z-PAQUE 96% w/w SUSP 176GM BTL As Ordered ONE
== END ==
LOC: M LABSMTC 11:13
PROVIDERS: ATTEND Anesthesiology
DX: Z01.812 Encounter for preprocedural laboratory examination (principal); Z20.822 Contact with and (suspected) exposure to COVID-19

== ENCOUNTER 2022-01-09 09:13 | Day surgery (SDC) | payer MEDICARE ==
[~2022-01-09] VITALS: Ht 177.8 cm; Wt 75.2 kg
[~2022-01-09 09:13] MED LIST changes: +LIDOCAINE 2% 100MG/5ML SDV (FOR ANES.) As Ordered ONE; +NS 1,000 ML IV ONE; +propofoL 200 MG/20 ML VIAL As Ordered ONE
[2022-01-09] MEDS ORDERED: fentaNYL 100 MCG/2 ML INJECTION As Ordered ONE (10:36)
[2022-01-09] MEDS ORDERED: propofoL 200 MG/20 ML VIAL As Ordered ONE (11:22)
[2022-01-09 11:50] VITALS: BP 167/78
== END 2022-01-09 12:52 | disposition home or self-care (01) ==
LOC: M OPP 09:13
PROVIDERS: ATTEND Internal Medicine Gastroenterology
DX: K63.5 Polyp of colon (principal); K57.30 Diverticulosis of large intestine without perforation or abscess without bleeding; K64.8 Other hemorrhoids; D50.9 Iron deficiency anemia, unspecified; K22.70 Barrett's esophagus without dysplasia; K44.9 Diaphragmatic hernia without obstruction or gangrene; K31.89 Other diseases of stomach and duodenum; R12 Heartburn; Z79.02 Long term (current) use of antithrombotics/antiplatelets; Z79.1 Long term (current) use of non-steroidal anti-inflammatories (NSAID); Z79.2 Long term (current) use of antibiotics; Z79.51 Long term (current) use of inhaled steroids; Z79.82 Long term (current) use of aspirin; Z79.899 Other long term (current) drug therapy; Z88.2 Allergy status to sulfonamides; Z88.8 Allergy status to other drugs, medicaments and biological substances; Z86.711 Personal history of pulmonary embolism; Z87.442 Personal history of urinary calculi
CPT/HCPCS: 43239; 45385; 88305; J3010

== ENCOUNTER → 2022-01-10 | Outpatient (REF) | payer MEDICARE ==
[~2022-01-10] MED LIST changes: -LIDOCAINE 2% 100MG/5ML SDV (FOR ANES.) As Ordered ONE; -NS 1,000 ML IV ONE; -propofoL 200 MG/20 ML VIAL As Ordered ONE
[2022-01-10 16:09] LABS: BASO % 0.7 % (0.0-1.0); EOS # 0.6 10^3/uL (0.0-0.5); EOS % 10.3 % (0.0-3.0); HEMATOCRIT 38.1 % (42.0-52.0); HEMOGLOBIN 12.3 g/dl (13.5-17.5); MEAN CORPUSCULAR HEMOGLOBIN 30.7 pg (27.0-33.0); MEAN CORPUSCULAR HGB CONC 32.3 g/dl (32.0-36.5); MONO # 0.5 10^3/uL (0.0-0.8); MONO % 7.7 % (2.0-8.0); NEUTROPHILS # 3.7 10^3/uL (1.5-8.5); PLATELET COUNT, AUTOMATED 311 10^3/uL (150-450); RED BLOOD COUNT 4.01 10^6/uL (4.30-6.10); WHITE BLOOD COUNT 5.8 10^3/uL (4.0-10.0)
[2022-01-10 16:28] LABS: APPEARANCE, URINE CLEAR (CLEAR); BACTERIA, URINE AUTO NEGATIVE (NEGATIVE); BILIRUBIN, URINE AUTO NEGATIVE (NEGATIVE); BLOOD, URINE BLOOD NEGATIVE (NEGATIVE); COLOR, URINE STRAW (YELLOW); GLUCOSE, URINE (UA) AUTO NEGATIVE (NEGATIVE); KETONE, URINE AUTO NEGATIVE (NEGATIVE); LEUKOCYTE ESTERASE, URINE AUTO NEGATIVE (NEGATIVE); NITRITE, URINE AUTO NEGATIVE (NEGATIVE); PROTEIN, URINE AUTO NEGATIVE (NEGATIVE); RBC, URINE AUTO 0 /HPF (0-3); SPECIFIC GRAVITY URINE AUTO 1.004 (1.002-1.035); SQUAMOUS EPITHELIAL CELL UR AU 0 /HPF (0-6); UROBILINOGEN, URINE AUTO 0.2 mg/dL (0.0-2.0); WBC, URINE AUTO 1 /HPF (0-3)
[2022-01-10 16:36] LABS: ALBUMIN 3.1 GM/DL (3.2-5.2); ALT/SGPT 26 U/L (12-78); BILIRUBIN,TOTAL 0.3 MG/DL (0.2-1.0); BLOOD UREA NITROGEN 10 MG/DL (7-18); CALCIUM LEVEL 8.4 MG/DL (8.8-10.2); CARBON DIOXIDE LEVEL 29 MEQ/L (21-32); CHLORIDE LEVEL 109 MEQ/L (98-107); CREATININE FOR GFR 0.82 MG/DL (0.70-1.30); GLOMERULAR FILTRATION RATE > 60.0 (>42); GLUCOSE, FASTING 90 MG/DL (70-100); POTASSIUM SERUM 4.1 MEQ/L (3.5-5.1); SODIUM LEVEL 140 MEQ/L (136-145); TOTAL PROTEIN 5.6 GM/DL (6.4-8.2)
== END ==
LOC: M LAB REF 15:42 → M WUC 15:42
PROVIDERS: ATTEND Nurse Practitioner Family
DX: R11.10 Vomiting, unspecified (principal)

== ENCOUNTER → 2022-02-14 | Outpatient (CLI) | payer MEDICARE ==
[~2022-02-14] MED LIST changes: +E-Z-GAS II EFFERVESCENT PACKET (SODIUM BICARB./CITRIC ACID/SIMETHICONE) As Ordered ONE; +E-Z-HD 98% w/w 340GM SUSP BTL As Ordered ONE; +E-Z-PAQUE 96% w/w SUSP 176GM BTL As Ordered ONE
== END ==
LOC: M RAD 09:24
PROVIDERS: ATTEND Surgery
DX: K44.9 Diaphragmatic hernia without obstruction or gangrene (principal); K21.9 Gastro-esophageal reflux disease without esophagitis

== ENCOUNTER → 2022-02-20 | Outpatient (CLI) | payer MEDICARE ==
[~2022-02-20] MED LIST changes: -E-Z-GAS II EFFERVESCENT PACKET (SODIUM BICARB./CITRIC ACID/SIMETHICONE) As Ordered ONE; -E-Z-HD 98% w/w 340GM SUSP BTL As Ordered ONE; -E-Z-PAQUE 96% w/w SUSP 176GM BTL As Ordered ONE
[2022-02-20 13:00] LABS: BASO # 0.1 10^3/uL (0.0-0.2); BASO % 1.5 % (0.0-1.0); EOS # 0.2 10^3/uL (0.0-0.5); HEMATOCRIT 40.5 % (42.0-52.0); HEMOGLOBIN 13.1 g/dl (13.5-17.5); LYMPH # 0.8 10^3/uL (1.5-5.0); LYMPH % 23.3 % (24.0-44.0); MEAN CORPUSCULAR HEMOGLOBIN 30.9 pg (27.0-33.0); MEAN CORPUSCULAR HGB CONC 32.3 g/dl (32.0-36.5); MEAN CORPUSCULAR VOLUME 95.5 fl (80.0-96.0); MONO # 0.4 10^3/uL (0.0-0.8); MONO % 12.4 % (2.0-8.0); NEUTROPHILS % 57.5 % (36.0-66.0); PLATELET COUNT, AUTOMATED 264 10^3/uL (150-450); RED BLOOD COUNT 4.24 10^6/uL (4.30-6.10); WHITE BLOOD COUNT 3.4 10^3/uL (4.0-10.0)
[2022-02-20 13:23] LABS: BLOOD UREA NITROGEN 14 MG/DL (7-18); CALCIUM LEVEL 8.9 MG/DL (8.8-10.2); CARBON DIOXIDE LEVEL 26 MEQ/L (21-32); CHLORIDE LEVEL 108 MEQ/L (98-107); CREATININE FOR GFR 0.83 MG/DL (0.70-1.30); GLOMERULAR FILTRATION RATE > 60.0 (>42); GLUCOSE, FASTING 85 MG/DL (70-100); POTASSIUM SERUM 4.3 MEQ/L (3.5-5.1); SODIUM LEVEL 141 MEQ/L (136-145)
== END ==
LOC: M WUC 10:25
PROVIDERS: ATTEND Nurse Practitioner Family
DX: D50.9 Iron deficiency anemia, unspecified (principal); I10 Essential (primary) hypertension

== ENCOUNTER → 2022-03-06 | Outpatient (CLI) | payer MEDICARE | LOC: M LABSMTC 10:57 | PROVIDERS: ATTEND Surgery | DX: Z01.812 Encounter for preprocedural laboratory examination (principal); Z20.822 Contact with and (suspected) exposure to COVID-19 ==

== ENCOUNTER → 2022-03-21 | Outpatient (CLI) | payer MEDICARE ==
[2022-03-22 14:57] LABS: BASO % 0.7 % (0.0-1.0); EOS # 0.6 10^3/uL (0.0-0.5); EOS % 9.7 % (0.0-3.0); HEMATOCRIT 42.1 % (42.0-52.0); HEMOGLOBIN 13.4 g/dl (13.5-17.5); LYMPH # 1.1 10^3/uL (1.5-5.0); LYMPH % 18.3 % (24.0-44.0); MEAN CORPUSCULAR HEMOGLOBIN 30.7 pg (27.0-33.0); MEAN CORPUSCULAR HGB CONC 31.8 g/dl (32.0-36.5); MEAN CORPUSCULAR VOLUME 96.6 fl (80.0-96.0); MONO # 0.6 10^3/uL (0.0-0.8); MONO % 9.3 % (2.0-8.0); NEUTROPHILS # 3.6 10^3/uL (1.5-8.5); NEUTROPHILS % 61.3 % (36.0-66.0); PLATELET COUNT, AUTOMATED 297 10^3/uL (150-450); RED BLOOD COUNT 4.36 10^6/uL (4.30-6.10); WHITE BLOOD COUNT 5.9 10^3/uL (4.0-10.0)
[2022-03-22 15:22] LABS: APPEARANCE, URINE HAZY (CLEAR); BACTERIA, URINE AUTO NEGATIVE (NEGATIVE); BILIRUBIN, URINE AUTO NEGATIVE (NEGATIVE); BLOOD, URINE BLOOD NEGATIVE (NEGATIVE); CALCIUM OXALATE CRYSTALS LARGE; COLOR, URINE YELLOW (YELLOW); GLUCOSE, URINE (UA) AUTO NEGATIVE (NEGATIVE); KETONE, URINE AUTO TRACE mg/dL (NEGATIVE); LEUKOCYTE ESTERASE, URINE AUTO NEGATIVE (NEGATIVE); MUCUS, URINE MODERATE (NEGATIVE); NITRITE, URINE AUTO NEGATIVE (NEGATIVE); PROTEIN, URINE AUTO NEGATIVE (NEGATIVE); RBC, URINE AUTO 10 /HPF (0-3); SPECIFIC GRAVITY URINE AUTO 1.015 (1.002-1.035); SQUAMOUS EPITHELIAL CELL UR AU 0 /HPF (0-6); UROBILINOGEN, URINE AUTO 0.2 mg/dL (0.0-2.0); WBC, URINE AUTO 7 /HPF (0-3)
[2022-03-22 15:23] LABS: ALBUMIN 3.5 GM/DL (3.2-5.2); ALT/SGPT 24 U/L (12-78); BILIRUBIN,TOTAL 0.3 MG/DL (0.2-1.0); BLOOD UREA NITROGEN 15 MG/DL (7-18); CARBON DIOXIDE LEVEL 31 MEQ/L (21-32); CHLORIDE LEVEL 107 MEQ/L (98-107); CREATININE FOR GFR 0.84 MG/DL (0.70-1.30); FERRITIN 203 NG/ML (26-388); GLOMERULAR FILTRATION RATE > 60.0 (>35); GLUCOSE, FASTING 93 MG/DL (70-100); IRON (FE) 63 UG/DL (65-175); PERCENT SATURATION 24.7 % (19.7-50.0); POTASSIUM SERUM 3.7 MEQ/L (3.5-5.1); SODIUM LEVEL 143 MEQ/L (136-145); TOTAL IRON BINDING CAPACITY 255 UG/DL (250-450); TOTAL PROTEIN 6.2 GM/DL (6.4-8.2)
== END ==
LOC: M WUC 15:28
PROVIDERS: ATTEND Specialist
DX: D50.9 Iron deficiency anemia, unspecified (principal)

== ENCOUNTER → 2022-07-08 | Outpatient (REF) | payer MEDICARE ==
[~2022-07-08] MED LIST changes: +ALBU6.7H6 INH; -PROV108A INH
[2022-07-08 14:48] LABS: FERRITIN 77.6 NG/ML (10.5-307.3); FOLATE > 24.00 NG/ML (>5.4); IRON (FE) 102 UG/DL (65-175); PERCENT SATURATION 30.9 % (19.7-50.0); TOTAL IRON BINDING CAPACITY 330 UG/DL (250-425); VITAMIN B12 LEVEL 396 PG/ML (211-911)
== END ==
LOC: M WUC 10:42
PROVIDERS: ATTEND Registered Nurse
DX: D50.9 Iron deficiency anemia, unspecified (principal)

== ENCOUNTER → 2022-07-08 | Outpatient (CLI) | payer MEDICARE | LOC: M PLAIMG 11:29 | PROVIDERS: ATTEND Internal Medicine Pulmonary Disease | DX: R06.02 Shortness of breath (principal); K44.9 Diaphragmatic hernia without obstruction or gangrene; J98.11 Atelectasis ==

== ENCOUNTER → 2022-07-08 | Outpatient (REF) | payer MEDICARE ==
[2022-07-08 12:32] LABS: BASO % 0.8 % (0.0-1.0); EOS # 0.2 10^3/uL (0.0-0.5); EOS % 4.4 % (0.0-3.0); HEMATOCRIT 39.3 % (42.0-52.0); HEMOGLOBIN 12.3 g/dl (13.5-17.5); LYMPH # 0.8 10^3/uL (1.5-5.0); LYMPH % 15.9 % (24.0-44.0); MEAN CORPUSCULAR HEMOGLOBIN 29.9 pg (27.0-33.0); MEAN CORPUSCULAR HGB CONC 31.3 g/dl (32.0-36.5); MEAN CORPUSCULAR VOLUME 95.4 fl (80.0-96.0); MONO # 0.5 10^3/uL (0.0-0.8); MONO % 10.3 % (2.0-8.0); NEUTROPHILS # 3.5 10^3/uL (1.5-8.5); NEUTROPHILS % 68.4 % (36.0-66.0); PLATELET COUNT, AUTOMATED 238 10^3/uL (150-450); RED BLOOD COUNT 4.12 10^6/uL (4.30-6.10); WHITE BLOOD COUNT 5.2 10^3/uL (4.0-10.0)
[2022-07-08 13:17] LABS: ALBUMIN 3.9 G/DL (3.2-5.2); ALT/SGPT 38 U/L (7.0-40); BILIRUBIN,TOTAL 0.5 MG/DL (0.3-1.2); BLOOD UREA NITROGEN 26 MG/DL (9-23); CALCIUM LEVEL 8.2 MG/DL (8.3-10.6); CARBON DIOXIDE LEVEL 26 MMOL/L (20-31); CHLORIDE LEVEL 105 MMOL/L (98-107); GLOMERULAR FILTRATION RATE > 60.0 (>35); GLUCOSE, FASTING 83 MG/DL (74-106); SODIUM LEVEL 140 MMOL/L (136-145); TOTAL PROTEIN 5.9 G/DL (5.7-8.2)
== END ==
LOC: M WUC 10:44
PROVIDERS: ATTEND Internal Medicine Pulmonary Disease
DX: R06.02 Shortness of breath (principal)

== ENCOUNTER → 2022-07-31 | Outpatient (CLI) | payer MEDICARE ==
[2022-07-31 12:45] LABS: BASO % 0.7 % (0.0-1.0); EOS # 0.3 10^3/uL (0.0-0.5); EOS % 6.1 % (0.0-3.0); HEMATOCRIT 38.8 % (42.0-52.0); HEMOGLOBIN 12.5 g/dl (13.5-17.5); LYMPH # 0.8 10^3/uL (1.5-5.0); LYMPH % 18.4 % (24.0-44.0); MEAN CORPUSCULAR HEMOGLOBIN 30.1 pg (27.0-33.0); MEAN CORPUSCULAR HGB CONC 32.2 g/dl (32.0-36.5); MEAN CORPUSCULAR VOLUME 93.5 fl (80.0-96.0); MONO # 0.4 10^3/uL (0.0-0.8); MONO % 9.2 % (2.0-8.0); NEUTROPHILS # 2.9 10^3/uL (1.5-8.5); NEUTROPHILS % 65.4 % (36.0-66.0); PLATELET COUNT, AUTOMATED 209 10^3/uL (150-450); RED BLOOD COUNT 4.15 10^6/uL (4.30-6.10); WHITE BLOOD COUNT 4.5 10^3/uL (4.0-10.0)
[2022-07-31 13:12] LABS: ALBUMIN 3.7 G/DL (3.2-5.2); ALKALINE PHOSPHATASE 88 U/L (46-116); ALT/SGPT 25 U/L (7.0-40); AST/SGOT 24 U/L (<34); BILIRUBIN,TOTAL 0.7 MG/DL (0.3-1.2); BLOOD UREA NITROGEN 19 MG/DL (9-23); CALCIUM LEVEL 8.9 MG/DL (8.3-10.6); CARBON DIOXIDE LEVEL 29 MMOL/L (20-31); CHLORIDE LEVEL 105 MMOL/L (98-107); CREATININE FOR GFR 0.81 MG/DL (0.70-1.30); GLOMERULAR FILTRATION RATE > 60.0 (>35); GLUCOSE, FASTING 95 MG/DL (74-106); POTASSIUM SERUM 4.4 MMOL/L (3.5-5.1); SODIUM LEVEL 139 MMOL/L (136-145)
== END ==
LOC: M WUC 10:49
PROVIDERS: ATTEND Internal Medicine Pulmonary Disease
DX: R06.02 Shortness of breath (principal)

== ENCOUNTER → 2023-01-08 | Outpatient (CLI) | payer MEDICARE | LOC: M RAD 11:48 | PROVIDERS: ATTEND Nurse Practitioner Family | DX: N50.812 Left testicular pain (principal) ==

== ENCOUNTER → 2023-02-11 | Outpatient (REF) | payer MEDICARE, OTHER ==
[~2023-02-11] MED LIST changes: -ROSU20TA5 PO; +ROSU20TA61 PO
== END ==
LOC: M SFHCDERM 13:52
PROVIDERS: ATTEND Nurse Practitioner Family
DX: L57.0 Actinic keratosis (principal); L57.8 Other skin changes due to chronic exposure to nonionizing radiation

== ENCOUNTER → 2023-02-20 | Outpatient (REF) | payer MEDICARE ==
[2023-02-20 18:47] LABS: APPEARANCE, URINE CLEAR (CLEAR); BACTERIA, URINE AUTO NEGATIVE (NEGATIVE); BILIRUBIN, URINE AUTO NEGATIVE (NEGATIVE); BLOOD, URINE BLOOD NEGATIVE (NEGATIVE); COLOR, URINE YELLOW (YELLOW); GLUCOSE, URINE (UA) AUTO NEGATIVE (NEGATIVE); KETONE, URINE AUTO NEGATIVE (NEGATIVE); LEUKOCYTE ESTERASE, URINE AUTO NEGATIVE (NEGATIVE); MUCUS, URINE SMALL (NEGATIVE); NITRITE, URINE AUTO NEGATIVE (NEGATIVE); PROTEIN, URINE AUTO NEGATIVE (NEGATIVE); RBC, URINE AUTO 0 /HPF (0-3); SQUAMOUS EPITHELIAL CELL UR AU 0 /HPF (0-6); UROBILINOGEN, URINE AUTO 0.2 mg/dL (0.0-2.0); WBC, URINE AUTO 2 /HPF (0-3)
== END ==
LOC: M SMT 17:08
PROVIDERS: ATTEND Urology
DX: N50.812 Left testicular pain (principal)

== ENCOUNTER → 2023-05-06 | Outpatient (CLI) | payer MEDICARE ==
[~2023-05-06] MED LIST changes: -ROPI0.5T3 PO; +ROPI0.5T33 PO
== END ==
LOC: M RAD 15:19
PROVIDERS: ATTEND Internal Medicine Pulmonary Disease
DX: J44.9 Chronic obstructive pulmonary disease, unspecified (principal)

== ENCOUNTER → 2023-05-25 | Outpatient (CLI) | payer MEDICARE | LOC: M PLAIMG 09:02 | PROVIDERS: ATTEND Internal Medicine Pulmonary Disease | DX: R91.8 Other nonspecific abnormal finding of lung field (principal) ==

== ENCOUNTER → 2023-05-29 | Outpatient (CLI) | payer MEDICARE ==
[2023-05-29 10:34] LABS: BASO % 0.5 % (0.0-1.0); EOS # 0.2 10^3/uL (0.0-0.5); EOS % 2.4 % (0.0-3.0); LYMPH # 1.4 10^3/uL (1.5-5.0); LYMPH % 22.8 % (24.0-44.0); MEAN CORPUSCULAR HEMOGLOBIN 31.4 pg (27.0-33.0); MEAN CORPUSCULAR HGB CONC 32.5 g/dl (32.0-36.5); MEAN CORPUSCULAR VOLUME 96.6 fl (80.0-96.0); MONO # 0.6 10^3/uL (0.0-0.8); NEUTROPHILS # 4.1 10^3/uL (1.5-8.5); NEUTROPHILS % 64.8 % (36.0-66.0); PLATELET COUNT, AUTOMATED 206 10^3/uL (150-450); RED BLOOD COUNT 4.14 10^6/uL (4.30-6.10); WHITE BLOOD COUNT 6.3 10^3/uL (4.0-10.0)
[2023-05-29 11:00] LABS: ALBUMIN 3.5 G/DL (3.2-5.2); ALKALINE PHOSPHATASE 63 U/L (46-116); ALT/SGPT 49 U/L (7.0-40); AST/SGOT 19 U/L (<34); BILIRUBIN,TOTAL 0.8 MG/DL (0.3-1.2); BLOOD UREA NITROGEN 25 MG/DL (9-23); CALCIUM LEVEL 8.4 MG/DL (8.3-10.6); CARBON DIOXIDE LEVEL 34 MMOL/L (20-31); CHLORIDE LEVEL 107 MMOL/L (98-107); CHOLESTEROL LEVEL 155 MG/DL (<200); CHOLESTEROL RISK RATIO 1.87 (<5); CREATININE FOR GFR 0.92 MG/DL (0.70-1.30); FERRITIN 105.7 NG/ML (10.5-307.3); GLOMERULAR FILTRATION RATE > 60.0 (>35); GLUCOSE, FASTING 81 MG/DL (74-106); HDL CHOLESTEROL 82.8 MG/DL (>40); IRON (FE) 112 UG/DL (65-175); LDL CHOLESTEROL 51.2 MG/DL (<100); NON-HDL-C 72.2 MG/DL; PERCENT SATURATION 34.7 % (19.7-50.0); POTASSIUM SERUM 4.4 MMOL/L (3.5-5.1); SODIUM LEVEL 145 MMOL/L (136-145); TOTAL IRON BINDING CAPACITY 323 UG/DL (250-425); TOTAL PROTEIN 5.7 G/DL (5.7-8.2); TRIGLYCERIDES LEVEL 105 MG/DL (<150)
== END ==
LOC: M WUC 08:30
PROVIDERS: ATTEND Registered Nurse
DX: D50.9 Iron deficiency anemia, unspecified (principal); I10 Essential (primary) hypertension

== ENCOUNTER → 2023-06-23 | Outpatient (CLI) | payer MEDICARE | LOC: M PLAIMG 13:22 | PROVIDERS: ATTEND Internal Medicine Nephrology | DX: N20.0 Calculus of kidney (principal); K74.60 Unspecified cirrhosis of liver; K80.20 Calculus of gallbladder without cholecystitis without obstruction; M47.9 Spondylosis, unspecified ==

== ENCOUNTER 2023-06-30 10:52 | Emergency (ER) | payer MEDICARE ==
[~2023-06-30] VITALS: Ht 177.8 cm; Wt 83.4 kg
[2023-06-30] MEDS ORDERED: ACET-683 PO (11:03)
[2023-06-30 12:53] LABS: BASO % 0.5 % (0.0-1.0); EOS % 0.5 % (0.0-3.0); HEMATOCRIT 41.7 % (42.0-52.0); HEMOGLOBIN 13.9 g/dl (13.5-17.5); LYMPH # 0.8 10^3/uL (1.5-5.0); LYMPH % 12.5 % (24.0-44.0); MEAN CORPUSCULAR HEMOGLOBIN 31.4 pg (27.0-33.0); MEAN CORPUSCULAR HGB CONC 33.3 g/dl (32.0-36.5); MEAN CORPUSCULAR VOLUME 94.1 fl (80.0-96.0); MONO # 0.4 10^3/uL (0.0-0.8); MONO % 5.8 % (2.0-8.0); NEUTROPHILS # 4.9 10^3/uL (1.5-8.5); NEUTROPHILS % 80.4 % (36.0-66.0); PLATELET COUNT, AUTOMATED 233 10^3/uL (150-450); RED BLOOD COUNT 4.43 10^6/uL (4.30-6.10); WHITE BLOOD COUNT 6.1 10^3/uL (4.0-10.0)
[2023-06-30 13:30] LABS: ALBUMIN 3.8 G/DL (3.2-5.2); ALKALINE PHOSPHATASE 66 U/L (46-116); ALT/SGPT 38 U/L (7.0-40); AST/SGOT 51 U/L (<34); BILIRUBIN,DIRECT < 0.1 MG/DL (<0.4); BILIRUBIN,TOTAL 0.4 MG/DL (0.3-1.2); BLOOD UREA NITROGEN 14 MG/DL (9-23); CALCIUM LEVEL 8.8 MG/DL (8.3-10.6); CARBON DIOXIDE LEVEL 26 MMOL/L (20-31); CHLORIDE LEVEL 107 MMOL/L (98-107); GLOMERULAR FILTRATION RATE > 60.0 (>35); GLUCOSE, FASTING 120 MG/DL (74-106); LIPASE 29 U/L (12-53); POTASSIUM SERUM 5.4 MMOL/L (3.5-5.1); SODIUM LEVEL 142 MMOL/L (136-145); TOTAL PROTEIN 6.5 G/DL (5.7-8.2)
[2023-06-30 13:43] VITALS: BP 156/75; TEMP 98.8; O2SAT 99
[2023-06-30] MEDS ORDERED: ASPE4PAD TOP (15:53)
[2023-06-30] MEDS ORDERED: METH-1164 PO (15:56)
== END 2023-06-30 16:04 | disposition home or self-care (01) ==
LOC: M ED 10:52
DX: M54.50 Low back pain, unspecified (principal); N50.812 Left testicular pain; J44.9 Chronic obstructive pulmonary disease, unspecified; I10 Essential (primary) hypertension; Z87.442 Personal history of urinary calculi; Z88.2 Allergy status to sulfonamides; Z88.8 Allergy status to other drugs, medicaments and biological substances; Z79.52 Long term (current) use of systemic steroids; Z79.82 Long term (current) use of aspirin; Z79.02 Long term (current) use of antithrombotics/antiplatelets; Z79.810 Long term (current) use of selective estrogen receptor modulators (SERMs); Z79.899 Other long term (current) drug therapy

== ENCOUNTER → 2023-08-04 | Outpatient (CLI) | payer MEDICARE ==
[~2023-08-04] MED LIST changes: +ACET-683 PO; +ASPE4PAD TOP; +METH-1164 PO
== END ==
LOC: M PLAIMG 11:36
PROVIDERS: ATTEND Internal Medicine Pulmonary Disease
DX: J44.1 Chronic obstructive pulmonary disease with (acute) exacerbation (principal)

== ENCOUNTER → 2023-08-19 | Outpatient (CLI) | payer MEDICARE | LOC: M RAD 07:36 | PROVIDERS: ATTEND Student in an Organized Health Care Education/Training Program | DX: M41.9 Scoliosis, unspecified (principal); M47.815 Spondylosis without myelopathy or radiculopathy, thoracolumbar region; M47.816 Spondylosis without myelopathy or radiculopathy, lumbar region; M48.061 Spinal stenosis, lumbar region without neurogenic claudication ==

== ENCOUNTER → 2023-12-01 | Outpatient (REF) | payer MEDICARE ==
[~2023-12-01] MED LIST changes: -ASPI-161 PO; +ASPI-615 PO
== END ==
LOC: M LAB REF 12:22
PROVIDERS: ATTEND Internal Medicine Pulmonary Disease
DX: J44.1 Chronic obstructive pulmonary disease with (acute) exacerbation (principal)

== ENCOUNTER 2024-01-03 14:10 | Emergency (ER) | payer MEDICARE ==
[~2024-01-03] VITALS: Ht 180.3 cm; Wt 83.8 kg
[~2024-01-03 14:10] MED LIST changes: -RAMI1CAP24 PO; +RAMI5CAP60 PO
[2024-01-03] MEDS: ACETAMINOPHEN TAB 650MG DOSE (2X325MG) PO ONE (16:01)
[2024-01-03] MEDS: LIDOCAINE W/EPINEPHRINE 1% 20ML VIAL SC ONE (16:11)
[2024-01-03 16:41] VITALS: BP 158/77; TEMP 98; O2SAT 95
== END 2024-01-03 16:46 | disposition home or self-care (01) ==
LOC: M ED 14:10
DX: S01.01XA Laceration without foreign body of scalp, initial encounter (principal); W19.XXXA Unspecified fall, initial encounter; Y92.009 Unspecified place in unspecified non-institutional (private) residence as the place of occurrence of the external cause; Y93.9 Activity, unspecified; Y99.9 Unspecified external cause status; J44.9 Chronic obstructive pulmonary disease, unspecified; F32.A Depression, unspecified; Z87.891 Personal history of nicotine dependence; Z79.82 Long term (current) use of aspirin; Z79.899 Other long term (current) drug therapy; Z88.2 Allergy status to sulfonamides; Z88.8 Allergy status to other drugs, medicaments and biological substances

== ENCOUNTER → 2024-01-19 | Outpatient (CLI) | payer MEDICARE ==
[~2024-01-19] MED LIST changes: +ONDA-282 PO; -ONDA4TAB6 PO
[2024-01-19 12:52] LABS: EOS # 0.2 10^3/uL (0.0-0.5); EOS % 5.7 % (0.0-3.0); HEMATOCRIT 38.7 % (42.0-52.0); HEMOGLOBIN 12.8 g/dl (13.5-17.5); LYMPH # 0.8 10^3/uL (1.5-5.0); LYMPH % 18.1 % (24.0-44.0); MEAN CORPUSCULAR HEMOGLOBIN 31.6 pg (27.0-33.0); MEAN CORPUSCULAR HGB CONC 33.1 g/dl (32.0-36.5); MEAN CORPUSCULAR VOLUME 95.6 fl (80.0-96.0); MONO # 0.6 10^3/uL (0.0-0.8); MONO % 13.1 % (2.0-8.0); NEUTROPHILS # 2.6 10^3/uL (1.5-8.5); NEUTROPHILS % 61.9 % (36.0-66.0); PLATELET COUNT, AUTOMATED 226 10^3/uL (150-450); RED BLOOD COUNT 4.05 10^6/uL (4.30-6.10); WHITE BLOOD COUNT 4.2 10^3/uL (4.0-10.0)
[2024-01-19 13:23] LABS: IRON (FE) 78 UG/DL (65-175)
[2024-01-19 13:24] LABS: ALBUMIN 3.3 G/DL (3.2-5.2); ALKALINE PHOSPHATASE 82 U/L (46-116); ALT/SGPT 23 U/L (7.0-40); AST/SGOT 18 U/L (<34); BILIRUBIN,TOTAL 0.5 MG/DL (0.3-1.2); BLOOD UREA NITROGEN 16 MG/DL (9-23); CARBON DIOXIDE LEVEL 28 MMOL/L (20-31); CHLORIDE LEVEL 106 MMOL/L (98-107); CREATININE FOR GFR 0.82 MG/DL (0.70-1.30); GLOMERULAR FILTRATION RATE > 60.0 (>35); GLUCOSE, FASTING 101 MG/DL (74-106); PERCENT SATURATION 23.8 % (19.7-50.0); POTASSIUM SERUM 4.1 MMOL/L (3.5-5.1); SODIUM LEVEL 138 MMOL/L (136-145); TOTAL IRON BINDING CAPACITY 328 UG/DL (250-425); TOTAL PROTEIN 5.4 G/DL (5.7-8.2)
[2024-01-19 13:25] LABS: FERRITIN 65.3 NG/ML (10.5-307.3); THYROID STIMULATING HORMONE 1.644 uIU/ML (0.55-4.78)
[2024-01-19 13:39] LABS: HEMOGLOBIN A1c 5.6 % (4.0-6.0)
== END ==
LOC: M WUC 09:34
PROVIDERS: ATTEND Registered Nurse
DX: R42 Dizziness and giddiness (principal); Z79.899 Other long term (current) drug therapy; Z86.39 Personal history of other endocrine, nutritional and metabolic disease

== ENCOUNTER → 2024-01-22 | Outpatient (CLI) | payer MEDICARE | LOC: M RAD 15:40 | PROVIDERS: ATTEND Urology | DX: N20.0 Calculus of kidney (principal); N28.1 Cyst of kidney, acquired ==

== ENCOUNTER 2024-01-29 20:13 | Emergency (ER) | payer MEDICARE ==
[~2024-01-29] VITALS: Ht 177.8 cm; Wt 84.6 kg
[2024-01-29 21:49] VITALS: BP 123/57; TEMP 97.7; O2SAT 95
== END 2024-01-30 00:40 | disposition left against medical advice (07) ==
LOC: M ED 20:13
DX: Z53.21 Procedure and treatment not carried out due to patient leaving prior to being seen by health care provider (principal)

== ENCOUNTER → 2024-02-02 | Outpatient (CLI) | payer MEDICARE | LOC: M LAB 08:50 → M EKG 08:50 | PROVIDERS: ATTEND Internal Medicine Cardiovascular Disease | DX: I49.5 Sick sinus syndrome (principal); I47.10 Supraventricular tachycardia, unspecified ==

== ENCOUNTER → 2024-02-10 | Outpatient (CLI) | payer MEDICARE ==
[~2024-02-10] MED LIST changes: +PROHANCE 279.3MG/ML 15ML VIAL ONE
== END ==
LOC: M PLAIMG 01-22 14:42
PROVIDERS: ATTEND Registered Nurse
DX: Z53.9 Procedure and treatment not carried out, unspecified reason (principal)
CPT/HCPCS: 70553; A9576

== ENCOUNTER 2024-05-30 09:23 | Emergency (ER) | payer MEDICARE ==
[~2024-05-30] VITALS: Ht 177.8 cm; Wt 82.2 kg
[~2024-05-30 09:23] MED LIST changes: -PROHANCE 279.3MG/ML 15ML VIAL ONE; -ROSU20TA61 PO; +ROSU20TA86 PO
[2024-05-30 09:30] VITALS: BP 159/77; TEMP 97.3; O2SAT 98
[2024-05-30] MEDS ORDERED: BENA25CA4 PO (09:34)
== END 2024-05-30 11:43 | disposition left against medical advice (07) ==
LOC: M ED 09:23
DX: Z53.21 Procedure and treatment not carried out due to patient leaving prior to being seen by health care provider (principal)

== ENCOUNTER → 2024-08-16 | Outpatient (CLI) | payer MEDICARE ==
[~2024-08-16] MED LIST changes: +BENA25CA4 PO
[2024-08-16 15:58] LABS: BASO % 0.8 % (0.0-1.0); EOS # 0.2 10^3/uL (0.0-0.5); EOS % 3.6 % (0.0-3.0); HEMATOCRIT 41.7 % (42.0-52.0); HEMOGLOBIN 13.8 g/dl (13.5-17.5); LYMPH # 0.9 10^3/uL (1.5-5.0); LYMPH % 18.8 % (24.0-44.0); MEAN CORPUSCULAR HEMOGLOBIN 31.3 pg (27.0-33.0); MEAN CORPUSCULAR HGB CONC 33.1 g/dl (32.0-36.5); MEAN CORPUSCULAR VOLUME 94.6 fl (80.0-96.0); MONO # 0.4 10^3/uL (0.0-0.8); MONO % 8.3 % (2.0-8.0); NEUTROPHILS # 3.4 10^3/uL (1.5-8.5); NEUTROPHILS % 68.1 % (36.0-66.0); PLATELET COUNT, AUTOMATED 232 10^3/uL (150-450); RED BLOOD COUNT 4.41 10^6/uL (4.30-6.10)
[2024-08-16 16:26] LABS: ALBUMIN 3.5 G/DL (3.2-5.2); ALKALINE PHOSPHATASE 96 U/L (40-129); ALT/SGPT 20 U/L (7.0-40); AST/SGOT 20 U/L (<34); BILIRUBIN,TOTAL 0.5 MG/DL (0.3-1.2); BLOOD UREA NITROGEN 23 MG/DL (9-23); CALCIUM LEVEL 9.1 MG/DL (8.3-10.6); CARBON DIOXIDE LEVEL 28 MMOL/L (20-31); CHLORIDE LEVEL 105 MMOL/L (98-107); CHOLESTEROL LEVEL 233 MG/DL (<200); CHOLESTEROL RISK RATIO 3.45 (<5); CREATININE FOR GFR 0.86 MG/DL (0.70-1.30); GLOMERULAR FILTRATION RATE > 60.0 (>35); GLUCOSE, FASTING 124 MG/DL (74-106); HDL CHOLESTEROL 67.5 MG/DL (>40); IRON (FE) 95 UG/DL (65-175); LDL CHOLESTEROL 135.7 MG/DL (<100); NON-HDL-C 165.5 MG/DL; SODIUM LEVEL 142 MMOL/L (136-145); TOTAL IRON BINDING CAPACITY 317 UG/DL (250-425); TOTAL PROTEIN 6.1 G/DL (5.7-8.2); TRIGLYCERIDES LEVEL 149 MG/DL (<150)
[2024-08-16 16:28] LABS: FERRITIN 86.9 NG/ML (10.5-307.3)
== END ==
LOC: M WUC 10:45
PROVIDERS: ATTEND Registered Nurse
DX: Z00.00 Encounter for general adult medical examination without abnormal findings (principal); I10 Essential (primary) hypertension; D50.9 Iron deficiency anemia, unspecified

== ENCOUNTER → 2024-09-01 | Outpatient (CLI) | payer MEDICARE | LOC: M PLARAD 09:57 | PROVIDERS: ATTEND Student in an Organized Health Care Education/Training Program | DX: M99.53 Intervertebral disc stenosis of neural canal of lumbar region (principal); M99.73 Connective tissue and disc stenosis of intervertebral foramina of lumbar region; M47.896 Other spondylosis, lumbar region ==

== ENCOUNTER → 2024-09-01 | Outpatient (REF) | payer MEDICARE | LOC: M LABWUC 16:27 | PROVIDERS: ATTEND Urology | DX: N40.0 Benign prostatic hyperplasia without lower urinary tract symptoms (principal); Z12.5 Encounter for screening for malignant neoplasm of prostate | CPT/HCPCS: 36415; G0103 ==

== ENCOUNTER → 2024-09-16 | Outpatient (REF) | payer MEDICARE | LOC: M SFHCDERM 17:48 | PROVIDERS: ATTEND Nurse Practitioner Family | DX: L57.0 Actinic keratosis (principal); L57.8 Other skin changes due to chronic exposure to nonionizing radiation ==

== ENCOUNTER 2024-11-27 13:51 | Observation (INO) | payer MEDICARE ==
[~2024-11-27] VITALS: Ht 177.8 cm; Wt 76.5 kg
[2024-11-27 14:24] LABS: VENOUS BASE EXCESS -1.5 (-2.0-2.0); VENOUS HCO3 24.9 MMOL/L (23.0-27.0); VENOUS O2 SATURATION 63.6 % (60.0-80.0); VENOUS PARTIAL PRESSURE CO2 48.3 mmHg (38.0-50.0); VENOUS PARTIAL PRESSURE O2 34.8 mmHg (30.0-50.0); VENOUS STANDARD HCO3 22.4 MMOL/L; VENOUS TOTAL CO2 26.4 MMOL/L (24.0-28.0)
[2024-11-27] MEDS: methylPREDNISolone 125MG 2ML VIAL IV ONE (14:33)
[2024-11-27] MEDS: IPRATROPIUM 0.5MG/ALBUTEROL 2.5MG INH SOL UD 3ML NEB ONE (14:36)
[2024-11-27] MEDS: ALBUTEROL SULFATE 2.5MG/0.5ML INH CONCENTRATE NEB SOLN NEB ONE (14:36)
[2024-11-27 14:38] LABS: BASO % 0.8 % (0.0-1.0); EOS # 0.5 10^3/uL (0.0-0.5); EOS % 10.7 % (0.0-3.0); HEMATOCRIT 41.2 % (42.0-52.0); HEMOGLOBIN 13.6 g/dl (13.5-17.5); LYMPH % 19.8 % (24.0-44.0); MEAN CORPUSCULAR HEMOGLOBIN 30.5 pg (27.0-33.0); MEAN CORPUSCULAR VOLUME 92.4 fl (80.0-96.0); MONO # 0.5 10^3/uL (0.0-0.8); MONO % 10.9 % (2.0-8.0); NEUTROPHILS # 2.8 10^3/uL (1.5-8.5); NEUTROPHILS % 57.6 % (36.0-66.0); PLATELET COUNT, AUTOMATED 258 10^3/uL (150-450); RED BLOOD COUNT 4.46 10^6/uL (4.30-6.10); WHITE BLOOD COUNT 4.9 10^3/uL (4.0-10.0)
[2024-11-27 14:54] LABS: CK-MB VALUE MASS 2.1 NG/ML (<3.6)
[2024-11-27 14:56] LABS: ALBUMIN 3.6 G/DL (3.2-5.2); BILIRUBIN,DIRECT 0.1 MG/DL (<0.4); BILIRUBIN,TOTAL 0.4 MG/DL (0.3-1.2); CALCIUM LEVEL 8.7 MG/DL (8.3-10.6); CREATININE FOR GFR 0.79 MG/DL (0.70-1.30); GLOMERULAR FILTRATION RATE 88.7 (>35); MB/CK RELATIVE INDEX 2.38 (< OR =4); POTASSIUM SERUM 3.9 MMOL/L (3.5-5.1); TOTAL PROTEIN 6.1 G/DL (5.7-8.2)
[2024-11-27 14:58] LABS: THYROID STIMULATING HORMONE 0.729 uIU/ML (0.55-4.78)
[2024-11-27 15:44] LABS: CK-MB VALUE MASS 1.7 NG/ML (<3.6)
[2024-11-27 15:45] LABS: MB/CK RELATIVE INDEX 2.23 (< OR =4)
[2024-11-27] MEDS ORDERED: MAALOX 30 ML SUSP *UDC PO PRN (17:20)
[2024-11-27] MEDS ORDERED: MOM 30ML SUSPENSION UDC PO PRN (17:20)
[2024-11-27] MEDS ORDERED: ACETAMINOPHEN 325 MG TAB PO PRN (17:20)
[2024-11-27 18:01] LABS: PROCALCITONIN 0.04 ng/ml
[2024-11-27] MEDS: AZITHROMYCIN 250MG TABLET PO ONE (18:17)
[2024-11-27] MEDS: BUDESONIDE 0.5 MG/2 ML INHALATION SUSPENSION NEB SCH (19:11)
[2024-11-27] MEDS: FORMOTEROL FUMARATE 20 MCG/2 ML INHALATION SOLUTION (PERFOROMIST) NEB SCH (19:11)
[2024-11-27] MEDS ORDERED: IPRATROPIUM 0.5MG/ALBUTEROL 2.5MG INH SOL UD 3ML NEB PRN (20:05)
[2024-11-27 20:15] VITALS: BP 153/79; TEMP 97.7; O2SAT 97
[2024-11-27] MEDS ORDERED: PREDOPD OS (20:35)
[2024-11-27] MEDS ORDERED: HOME MED LIST COMPLETE! XX SCH (20:35)
[2024-11-27] MEDS ORDERED: FINA5TAB2 PO (20:35)
[2024-11-27] MEDS ORDERED: ALBU8.5H INH (20:35)
[2024-11-27] MEDS ORDERED: INCR1INH IN (20:35)
[2024-11-27] MEDS: rOPINIRole 1MG TAB PO SCH (20:59)
[2024-11-27] MEDS: **hydrALAZINE** 10 MG TAB PO SCH (21:00)
[2024-11-27 22:04] VITALS: O2SAT 95
[2024-11-28 00:57] VITALS: BP 111/69; TEMP 97.7; O2SAT 95
[2024-11-28 05:35] VITALS: BP 118/70; TEMP 97.7; O2SAT 92
[2024-11-28 06:22] LABS: BLOOD UREA NITROGEN 16 MG/DL (9-23); CALCIUM LEVEL 8.4 MG/DL (8.3-10.6); CARBON DIOXIDE LEVEL 26 MMOL/L (20-31); CHLORIDE LEVEL 107 MMOL/L (98-107); CREATININE FOR GFR 0.71 MG/DL (0.70-1.30); GLOMERULAR FILTRATION RATE > 90.0 (>35); GLUCOSE, FASTING 114 MG/DL (74-106); POTASSIUM SERUM 4.3 MMOL/L (3.5-5.1); SODIUM LEVEL 141 MMOL/L (136-145)
[2024-11-28 08:00] VITALS: BP 145/84; TEMP 97.5; O2SAT 100
[2024-11-28] MEDS ORDERED: ATORVASTATIN 20 MG TAB PO SCH (09:00)
[2024-11-28] MEDS: OMEPRAZOLE 20MG CAP PO SCH (09:55)
[2024-11-28] MEDS: ENOXAPARIN 40MG/0.4ML SYRINGE (J1650 PER 10MG) SC SCH (09:56)
[2024-11-28] MEDS: ASPIRIN 81MG ENTERIC TABLET PO SCH (09:56)
[2024-11-28] MEDS: ROSUVASTATIN 10 MG TAB (CRESTOR) PO SCH (09:56)
[2024-11-28] MEDS: prednisoLONE ACET 1% OPHTH SUSP 5ML OS SCH (10:02)
[2024-11-28] MEDS ORDERED: AZIT-12 PO (10:48)
[2024-11-28] MEDS ORDERED: PRED20TA PO (10:49)
[2024-11-28] MEDS ORDERED: IPRA0.00 INH (10:50)
[2024-11-28] MEDS ORDERED: BLOOKIT XX (10:56)
[2024-11-28] MEDS ORDERED: HYDR-161 PO (10:59)
[2024-11-28 11:51] VITALS: BP 142/82
[2024-11-28] MEDS: **hydrALAZINE** 10 MG TAB PO SCH (11:51)
[2024-11-28 12:00] VITALS: BP 145/84; TEMP 97.4; O2SAT 97
[2024-11-28] MEDS ORDERED: AZITHROMYCIN 250MG TABLET PO SCH (21:00)
[2024-11-28] MEDS ORDERED: FINASTERIDE 5MG TAB PO SCH (21:00)
== END 2024-11-28 13:52 | disposition home health service (06) ==
LOC: M ED 13:51 → M ED INP 13:52 → M MSPAV 20:16
PROVIDERS: ADMIT Student in an Organized Health Care Education/Training Program; ATTEND Student in an Organized Health Care Education/Training Program
DX: J44.1 Chronic obstructive pulmonary disease with (acute) exacerbation (principal); I10 Essential (primary) hypertension; Z79.82 Long term (current) use of aspirin; Z79.2 Long term (current) use of antibiotics; Z79.51 Long term (current) use of inhaled steroids; Z79.52 Long term (current) use of systemic steroids
CPT/HCPCS: 36415; 71045; 80048; 80076; 82550; 82553; 82803; 83605; 83735; 83880; 84145; 84436; 84443; 84484; 85025; 87040; 87077; 87154; 87486; 87581; 87633; 87798; 93041; 94640; 94760; 96372; 96374; 97161; 99285; G0378; J1650; J2919

== ENCOUNTER 2024-12-01 10:35 | Emergency (ER) | payer MEDICARE ==
[~2024-12-01] VITALS: Ht 177.8 cm; Wt 77.0 kg
[~2024-12-01 10:35] MED LIST changes: +ALBU8.5H INH; +AZIT-12 PO; +BLOOKIT XX; +FINA5TAB2 PO; +HYDR-161 PO; +INCR1INH IN; +IPRA0.00 INH; +PRED20TA PO; +PREDOPD OS
[2024-12-01 14:08] LABS: BASO % 0.5 % (0.0-1.0); EOS % 0.3 % (0.0-3.0); HEMATOCRIT 41.9 % (42.0-52.0); HEMOGLOBIN 13.9 g/dl (13.5-17.5); LYMPH # 0.6 10^3/uL (1.5-5.0); LYMPH % 8.5 % (24.0-44.0); MEAN CORPUSCULAR HEMOGLOBIN 30.8 pg (27.0-33.0); MEAN CORPUSCULAR HGB CONC 33.2 g/dl (32.0-36.5); MEAN CORPUSCULAR VOLUME 92.9 fl (80.0-96.0); MONO # 0.2 10^3/uL (0.0-0.8); MONO % 2.8 % (2.0-8.0); NEUTROPHILS # 5.7 10^3/uL (1.5-8.5); NEUTROPHILS % 87.6 % (36.0-66.0); PLATELET COUNT, AUTOMATED 250 10^3/uL (150-450); RED BLOOD COUNT 4.51 10^6/uL (4.30-6.10); WHITE BLOOD COUNT 6.5 10^3/uL (4.0-10.0)
[2024-12-01 14:30] VITALS: TEMP 97.8
[2024-12-01 14:37] LABS: ALBUMIN 3.6 G/DL (3.2-5.2); ALKALINE PHOSPHATASE 87 U/L (40-129); ALT/SGPT 21 U/L (7.0-40); AST/SGOT 19 U/L (<34); BILIRUBIN,TOTAL 0.4 MG/DL (0.3-1.2); BLOOD UREA NITROGEN 28 MG/DL (9-23); CARBON DIOXIDE LEVEL 27 MMOL/L (20-31); CHLORIDE LEVEL 106 MMOL/L (98-107); CREATININE FOR GFR 0.73 MG/DL (0.70-1.30); GLOMERULAR FILTRATION RATE > 90.0 (>35); GLUCOSE, FASTING 97 MG/DL (74-106); SODIUM LEVEL 141 MMOL/L (136-145); TOTAL PROTEIN 6.2 G/DL (5.7-8.2)
[2024-12-01 14:48] LABS: PROCALCITONIN 0.05 ng/ml
[2024-12-01 15:50] VITALS: BP 137/86; O2SAT 97
== END 2024-12-01 16:00 | disposition home or self-care (01) ==
LOC: M ED 10:35
DX: R79.9 Abnormal finding of blood chemistry, unspecified (principal); I10 Essential (primary) hypertension; J44.9 Chronic obstructive pulmonary disease, unspecified; Z79.82 Long term (current) use of aspirin; Z79.899 Other long term (current) drug therapy; Z88.2 Allergy status to sulfonamides; Z88.8 Allergy status to other drugs, medicaments and biological substances

== ENCOUNTER → 2024-12-15 | Outpatient (REF) | payer MEDICARE | LOC: M LAB REF 13:07 | PROVIDERS: ATTEND Internal Medicine Pulmonary Disease | DX: J44.9 Chronic obstructive pulmonary disease, unspecified (principal) ==

== ENCOUNTER → 2025-03-10 | Outpatient (REF) | payer MEDICARE | LOC: M SFHCDERM 17:28 | PROVIDERS: ATTEND Nurse Practitioner Family | DX: L57.0 Actinic keratosis (principal) ==

== ENCOUNTER → 2025-04-20 | Outpatient (CLI) | payer MEDICARE ==
[2025-04-20 15:11] LABS: BASO # 0.0 10^3/uL (0.0-0.2); BASO % 0.4 % (0.0-1.0); EOS # 0.2 10^3/uL (0.0-0.5); EOS % 3.8 % (0.0-3.0); LYMPH # 0.7 10^3/uL (1.5-5.0); LYMPH % 13.7 % (24.0-44.0); MONO # 0.6 10^3/uL (0.0-0.8); MONO % 11.5 % (2.0-8.0); NEUTROPHILS # 3.5 10^3/uL (1.5-8.5); NEUTROPHILS % 70.0 % (36.0-66.0); PLATELET COUNT, AUTOMATED 184 10^3/uL (150-450)
[2025-04-25 09:46] LABS: BERMUDA GRASS IGE < 0.10 kU/L (<0.10); BIRCH IGE 0.50 kU/L (<0.10); COMMON RAGWEED SHORT IGE 0.62 kU/L (<0.10); D001 IGE D PTERONYSSINUS 4.48 kU/L (<0.10); D002-IGE D FARINAE 3.86 kU/L (<0.10); E001-IGE CAT DANDER 0.43 kU/L (<0.10); E005-IGE DOG DANDER 4.49 kU/L (<0.10); ELM IGE < 0.10 kU/L (<0.10); I006 IGE COCKROACH < 0.10 kU/L (<0.10); IMMUNOGLOBULIN E FOR ALLERGENS 81 kU/L (<OR=114); M006 IGE ALTERNIA ALTERNATA < 0.10 kU/L (<0.10); M1-PENICILLIUM NOTATUM < 0.10 kU/L (<0.10); MOUSE URINE IGE < 0.10 kU/L (<0.10); MUGWORT IGE < 0.10 kU/L (<0.10); OAK IGE < 0.10 kU/L (<0.10); ROUGH PIGWEED IGE < 0.10 kU/L (<0.10); SHEEP SORREL IGE < 0.10 kU/L (<0.10); T001-IGE MAPLE BOX ELDER 0.20 kU/L (<0.10); T006-IGE MOUNTAIN CEDAR < 0.10 kU/L (<0.10); T014 COTTONWOOD IGE < 0.10 kU/L (<0.10); TIMOTHY GRASS IGE 0.28 kU/L (<0.10); WALNUT TREE IGE < 0.10 kU/L (<0.10); WHITE ASH IGE < 0.10 kU/L (<0.10); WHITE MULBERRY IGE < 0.10 kU/L (<0.10)
[2025-04-25 15:52] LABS: E094-IgE Fel d 1 0.54 kU/L (<0.10); E101-IgE Can f 1 5.26 kU/L (<0.10); E102-IgE Can f 2 < 0.10 kU/L (<0.10); E226 IgE Can f 5 < 0.10 kU/L (<0.10); E228-IgE Fel d 4 < 0.10 kU/L (<0.10); E229 IGE CAN F 4 < 0.10 kU/L (<0.10); E230 IGE CAN F 6 1.74 kU/L (<0.10); E231 IGE FEL D 7 3.97 kU/L (<0.10)
== END ==
LOC: M WUC 11:44
PROVIDERS: ATTEND Internal Medicine Pulmonary Disease
DX: J44.9 Chronic obstructive pulmonary disease, unspecified (principal); J30.2 Other seasonal allergic rhinitis

== ENCOUNTER → 2025-07-11 | Outpatient (CLI) | payer MEDICARE | LOC: M PLAIMG 10:48 | PROVIDERS: ATTEND Internal Medicine Pulmonary Disease | DX: J44.1 Chronic obstructive pulmonary disease with (acute) exacerbation (principal) ==

== ENCOUNTER → 2025-07-26 | Outpatient (REF) | payer MEDICARE | LOC: M SFHCDERM 06:59 | PROVIDERS: ATTEND Nurse Practitioner Family | DX: C44.42 Squamous cell carcinoma of skin of scalp and neck (principal) ==